=== PATIENT | female | born 1940 | race Caucasian/White ===

== ENCOUNTER 2016-12-26 09:54 | Outpatient (CLI) | payer MEDICARE ==
[2016-12-26 10:18] LABS: #Basophils 0.1 thou/uL (0.0-0.2); #Eosinphils 0.3 thou/uL (0.0-0.7); #Lymphocytes 2.5 thou/uL (1.20-3.40); #Monocytes 0.8 thou/uL (0.11-0.59); %Basophils 1.5 % (0.0-1.0); %Eosinophils 3.3 % (0.0-10.0); %Lymphocytes 25.7 % (21.0-51.0); %Monocytes 7.8 % (0.0-10.0); %Neutrophils 61.6 % (42.0-75.0); Hemoglobin 12.1 g/dL (12.0-16.0); Mean Corpuscular HGB CONC 32.5 g/dL (32.0-36.0); Mean Corpuscular Hemoglobin 30.4 pg (27.0-31.0); Mean Corpuscular Volume 93.5 fl (81.0-99.0); Mean Platelet Volume 8.8 fL (7.4-10.4); Platelet Count 266 thou/uL (130-400); RBC Distribution Width 12.3 % (11.5-14.5); Red Blood Cell (RBC) Count 3.99 mill/uL (4.20-5.40); White Blood Cell (WBC) Count 9.7 thou/uL (4.8-10.8)
[2016-12-26 10:32] LABS: Hemoglobin A1c 8.7 % (4.0-6.0)
[2016-12-26 11:03] LABS: ALT (SGPT) 19 U/L (0-55); AST (SGOT) 22 U/L (5-34); Albumin 3.4 g/dL (3.4-4.8); Alkaline Phosphatase 102 U/L (40-150); Anion Gap 16 mmol/L (10-20); BUN (Urea Nitrogen) 28 mg/dL (9.8-20.1); Bilirubin, Total 0.3 mg/dL (0.2-1.2); Calc. Creatinine Clearance 0 mL/min (70-130); Calcium 8.9 mg/dL (7.8-10.44); Carbon Dioxide 28 mmol/L (23-31); Cardiac Risk 2.7 (Less than 4.5); Chloride 106 mmol/L (98-107); Cholesterol 145 mg/dL (< 200 Desired); Estimated GFR-MDRD 27; Globulin 2.5 g/dL (2.4-3.5); Glucose 99 mg/dL (83-110); HDL Cholesterol 53 mg/dL (>60 Neg Risk); LDL Cholesterol, Calculated 77 mg/dL; Potassium 4.6 mmol/L (3.5-5.1); Protein, Total 5.9 g/dL (5.8-8.1); Sodium 145 mmol/L (136-145); Triglycerides 74 mg/dL (Less than 150)
[2016-12-26 17:30] LABS: Iron 86 ug/dL (50-170)
== END 2016-12-26 09:55 ==
LOC: MADLABBHPM 09:54
PROVIDERS: ATTEND Family Medicine
DX: D64.9 Anemia, unspecified (principal); E08.40 Diabetes mellitus due to underlying condition with diabetic neuropathy, unspecified
CPT/HCPCS: 36415; 80053; 80061; 82728; 83036; 83540; 85025

== ENCOUNTER 2017-03-01 08:37 | Outpatient (CLI) | payer MEDICARE ==
[2017-03-01 10:59] LABS: #Basophils 0.1 thou/uL (0.0-0.2); #Eosinphils 0.3 thou/uL (0.0-0.7); #Lymphocytes 2.4 thou/uL (1.20-3.40); #Monocytes 0.9 thou/uL (0.11-0.59); #Neutrophils 5.9 thou/uL (1.40-6.50); %Eosinophils 3.2 % (0.0-10.0); %Lymphocytes 25.5 % (21.0-51.0); %Monocytes 9.1 % (0.0-10.0); %Neutrophils 61.2 % (42.0-75.0); Hemoglobin 12.4 g/dL (12.0-16.0); Mean Corpuscular HGB CONC 33.1 g/dL (32.0-36.0); Mean Corpuscular Hemoglobin 31.2 pg (27.0-31.0); Mean Corpuscular Volume 94.3 fl (81.0-99.0); Mean Platelet Volume 8.5 fL (7.4-10.4); Platelet Count 262 thou/uL (130-400); RBC Distribution Width 12.7 % (11.5-14.5); Red Blood Cell (RBC) Count 3.97 mill/uL (4.20-5.40); White Blood Cell (WBC) Count 9.6 thou/uL (4.8-10.8)
[2017-03-01 11:16] LABS: Anion Gap 13 mmol/L (10-20); BUN (Urea Nitrogen) 26 mg/dL (9.8-20.1); Calc. Creatinine Clearance 0 mL/min (70-130); Calcium 9.1 mg/dL (7.8-10.44); Carbon Dioxide 29 mmol/L (23-31); Chloride 107 mmol/L (98-107); Estimated GFR-MDRD 33; Glucose 68 mg/dL (83-110); Phosphorus 4.1 mg/dL (2.3-4.7); Potassium 4.4 mmol/L (3.5-5.1); Sodium 145 mmol/L (136-145)
== END 2017-03-01 08:38 | disposition home or self-care (01) ==
LOC: MADLAB 08:37
PROVIDERS: ATTEND Internal Medicine Nephrology
DX: N18.3 Chronic kidney disease, stage 3 (moderate) (principal)
CPT/HCPCS: 36415; 80048; 83970; 84100; 85025

== ENCOUNTER 2017-03-14 09:11 | Outpatient (CLI) | payer MEDICARE ==
[2017-03-14 09:38] LABS: Hemoglobin A1c 8.5 % (4.0-6.0)
== END 2017-03-14 09:12 | disposition home or self-care (01) ==
LOC: MADLABBHPM 09:11
PROVIDERS: ATTEND Family Medicine
DX: E08.40 Diabetes mellitus due to underlying condition with diabetic neuropathy, unspecified (principal)
CPT/HCPCS: 36415; 83036

== ENCOUNTER 2017-06-19 08:42 | Outpatient (CLI) | payer MEDICARE ==
[2017-06-19 09:28] LABS: Hemoglobin A1c 5.8 % (4.0-6.0)
[2017-06-19 09:50] LABS: ALT (SGPT) 17 U/L (8-55); AST (SGOT) 21 U/L (5-34); Albumin 3.4 g/dL (3.4-4.8); Alkaline Phosphatase 99 U/L (40-150); Anion Gap 12 mmol/L (10-20); BUN (Urea Nitrogen) 27 mg/dL (9.8-20.1); Bilirubin, Total 0.3 mg/dL (0.2-1.2); Calc. Creatinine Clearance 0 mL/min (70-130); Calcium 9.3 mg/dL (7.8-10.44); Carbon Dioxide 30 mmol/L (23-31); Cardiac Risk 2.9 (Less than 4.5); Chloride 105 mmol/L (98-107); Cholesterol 156 mg/dl (< 200 Desired); Estimated GFR-MDRD 23; Globulin 3.2 g/dL (2.4-3.5); HDL Cholesterol 53 mg/dL (>60 Neg Risk); LDL Cholesterol, Calculated 87 mg/dL; Potassium 5.6 mmol/L (3.5-5.1); Protein, Total 6.6 g/dL (6.0-8.3); Sodium 141 mmol/L (136-145); Triglycerides 82 mg/dL (Less than 150)
[2017-06-19 10:38] LABS: Glucose 46 mg/dL (83-110)
== END 2017-06-19 08:43 ==
LOC: MADLABBHPM 08:42
PROVIDERS: ATTEND Family Medicine
DX: E78.5 Hyperlipidemia, unspecified (principal); E08.40 Diabetes mellitus due to underlying condition with diabetic neuropathy, unspecified
CPT/HCPCS: 36415; 80053; 80061; 83036; 84443

== ENCOUNTER 2017-06-21 09:01 | Outpatient (CLI) | payer MEDICARE ==
[2017-06-21 10:19] LABS: Anion Gap 13 mmol/L (10-20); BUN (Urea Nitrogen) 33 mg/dL (9.8-20.1); Calc. Creatinine Clearance 0 mL/min (70-130); Calcium 9.3 mg/dL (7.8-10.44); Carbon Dioxide 29 mmol/L (23-31); Chloride 106 mmol/L (98-107); Estimated GFR-MDRD 23; Potassium 5.2 mmol/L (3.5-5.1); Sodium 143 mmol/L (136-145)
[2017-06-21 11:23] LABS: Glucose 46 mg/dL (83-110)
== END 2017-06-21 09:02 | disposition home or self-care (01) ==
LOC: MADLABBHPM 09:01
PROVIDERS: ATTEND Family Medicine
DX: E08.40 Diabetes mellitus due to underlying condition with diabetic neuropathy, unspecified (principal)
CPT/HCPCS: 36415; 80048; 80053; 80061; 83036; 84443

== ENCOUNTER 2017-06-24 08:52 | Outpatient (CLI) | payer MEDICARE ==
[2017-06-24 11:07] LABS: Anion Gap 13 mmol/L (10-20); BUN (Urea Nitrogen) 33 mg/dL (9.8-20.1); Calc. Creatinine Clearance 0 mL/min (70-130); Calcium 9.3 mg/dL (7.8-10.44); Carbon Dioxide 29 mmol/L (23-31); Chloride 103 mmol/L (98-107); Estimated GFR-MDRD 22; Glucose 198 mg/dL (83-110); Potassium 4.9 mmol/L (3.5-5.1); Sodium 140 mmol/L (136-145)
== END 2017-06-24 08:53 ==
LOC: MADLABBHPM 08:52
PROVIDERS: ATTEND Family Medicine
DX: E78.5 Hyperlipidemia, unspecified (principal)
CPT/HCPCS: 36415; 80048

== ENCOUNTER 2017-06-28 08:53 | Outpatient (CLI) | payer MEDICARE ==
[2017-06-28 09:49] LABS: Anion Gap 13 mmol/L (10-20); BUN (Urea Nitrogen) 30 mg/dL (9.8-20.1); Calc. Creatinine Clearance 0 mL/min (70-130); Calcium 9.5 mg/dL (7.8-10.44); Carbon Dioxide 30 mmol/L (23-31); Chloride 103 mmol/L (98-107); Estimated GFR-MDRD 26; Glucose 209 mg/dL (83-110); Potassium 4.9 mmol/L (3.5-5.1); Sodium 141 mmol/L (136-145)
== END 2017-06-28 08:54 | disposition home or self-care (01) ==
LOC: MADLABBHPM 08:53
PROVIDERS: ATTEND Family Medicine
DX: N18.3 Chronic kidney disease, stage 3 (moderate) (principal); E08.40 Diabetes mellitus due to underlying condition with diabetic neuropathy, unspecified; E55.9 Vitamin D deficiency, unspecified
CPT/HCPCS: 36415; 80048; 82306; 83970

== ENCOUNTER 2018-01-13 12:03 | Outpatient (CLI) | payer MEDICARE ==
[2018-01-13 13:50] LABS: ALT (SGPT) 12 U/L (8-55); AST (SGOT) 13 U/L (5-34); Albumin 3.4 g/dL (3.4-4.8); Alkaline Phosphatase 84 U/L (40-150); Anion Gap 15 mmol/L (10-20); BUN (Urea Nitrogen) 26 mg/dL (9.8-20.1); Bilirubin, Total 0.3 mg/dL (0.2-1.2); Calc. Creatinine Clearance 0 mL/min (70-130); Calcium 8.9 mg/dL (7.8-10.44); Carbon Dioxide 28 mmol/L (23-31); Chloride 106 mmol/L (98-107); Estimated GFR-MDRD 38; Globulin 2.6 g/dL (2.4-3.5); Glucose 77 mg/dL (83-110); Potassium 4.4 mmol/L (3.5-5.1); Sodium 145 mmol/L (136-145)
== END 2018-01-13 12:04 | disposition home or self-care (01) ==
LOC: MADLABBHPM 12:04
PROVIDERS: ATTEND Family Medicine
DX: E08.40 Diabetes mellitus due to underlying condition with diabetic neuropathy, unspecified (principal)
CPT/HCPCS: 36415; 80053; 83036

== ENCOUNTER 2018-03-31 10:30 | Outpatient (CLI) | payer MEDICARE ==
[2018-03-31 11:41] LABS: Anion Gap 15 mmol/L (10-20); BUN (Urea Nitrogen) 36 mg/dL (9.8-20.1); Calc. Creatinine Clearance 0 mL/min (70-130); Calcium 9.5 mg/dL (7.8-10.44); Carbon Dioxide 28 mmol/L (23-31); Chloride 104 mmol/L (98-107); Estimated GFR-MDRD 36; Glucose 221 mg/dL (83-110); Potassium 4.5 mmol/L (3.5-5.1); Sodium 142 mmol/L (136-145)
== END 2018-03-31 10:31 | disposition home or self-care (01) ==
LOC: MADLABBHPM 10:30
PROVIDERS: ATTEND Internal Medicine Nephrology
DX: N18.3 Chronic kidney disease, stage 3 (moderate) (principal)
CPT/HCPCS: 36415; 80048

== ENCOUNTER 2018-07-03 08:25 | Outpatient (CLI) | payer MEDICARE ==
[2018-07-03 09:55] LABS: Anion Gap 12 mmol/L (10-20); BUN (Urea Nitrogen) 22 mg/dL (9.8-20.1); Calc. Creatinine Clearance 0 mL/min (70-130); Calcium 8.6 mg/dL (7.8-10.44); Carbon Dioxide 28 mmol/L (23-31); Estimated GFR-MDRD 28; Glucose 154 mg/dL (83-110); Potassium 4.3 mmol/L (3.5-5.1); Sodium 140 mmol/L (136-145)
[2018-07-03 10:36] LABS: Chloride 104 mmol/L (98-107)
== END 2018-07-03 08:26 | disposition home or self-care (01) ==
LOC: MADLABBHPM 08:25
PROVIDERS: ATTEND Family Medicine
DX: R60.0 Localized edema (principal)
CPT/HCPCS: 36415; 80048

== ENCOUNTER 2018-07-13 17:12 | Emergency (ER) | payer MEDICARE ==
[~2018-07-13 17:12] MED LIST: Sodium Chloride 0.9% 1,000 ML BAG ONE; Sodium Chloride 0.9% 100 ML BAG ONE
[2018-07-13] MEDS ORDERED: Acetaminophen 500 MG TAB ONE (17:30)
[2018-07-13] MEDS ORDERED: Piperacillin/Tazobactam 4.5 GM VIAL ONE (17:30)
[2018-07-13] MEDS ORDERED: Vancomycin HCl 500 MG VIAL ONE ×2 (17:30→19:17)
[2018-07-13 17:38] LABS: #Basophils 0.2 thou/uL (0.0-0.2); #Lymphocytes 1.1 thou/uL (1.20-3.40); #Neutrophils 14.7 thou/uL (1.40-6.50); %Eosinophils 0.1 % (0.0-10.0); %Lymphocytes 6.3 % (21.0-51.0); %Monocytes 6.1 % (0.0-10.0); %Neutrophils 86.5 % (42.0-75.0); Hemoglobin 11.5 g/dL (12.0-16.0); Mean Corpuscular HGB CONC 31.8 g/dL (32.0-36.0); Mean Corpuscular Hemoglobin 28.8 pg (27.0-31.0); Mean Corpuscular Volume 90.8 fL (78.0-98.0); Mean Platelet Volume 7.1 fL (7.4-10.4); Platelet Count 346 thou/uL (130-400); RBC Distribution Width 12.2 % (11.5-14.5)
[2018-07-13 17:41] LABS: INR-International Normal Ratio 1.2; PTT 36.2 SEC (22.9-36.1); Prothrombin Time 14.8 SEC (12.0-14.7)
[2018-07-13 17:52] LABS: ALT (SGPT) 10 U/L (8-55); AST (SGOT) 11 U/L (5-34); Albumin 3.3 g/dL (3.4-4.8); Alkaline Phosphatase 86 U/L (40-150); Anion Gap 14 mmol/L (10-20); BUN (Urea Nitrogen) 20 mg/dL (9.8-20.1); Bilirubin, Total 0.4 mg/dL (0.2-1.2); Calc. Creatinine Clearance 0 mL/min (70-130); Calcium 8.8 mg/dL (7.8-10.44); Carbon Dioxide 26 mmol/L (23-31); Chloride 103 mmol/L (98-107); Estimated GFR-MDRD 32; Globulin 3.5 g/dL (2.4-3.5); Glucose 95 mg/dL (83-110); Potassium 4.6 mmol/L (3.5-5.1); Protein, Total 6.8 g/dL (6.0-8.3); Sodium 138 mmol/L (136-145)
[2018-07-13 18:00] LABS: Bilirubin Negative (Negative); Blood, Urine Small (Negative); Clarity Hazy (Clear); Glucose, Urine (Dipstick) Negative (Negative); Leukocyte Negative (Negative); Nitrite Negative (Negative); Protein, Urine (Dipstick) > or equal to 300 mg/dL (Neg-Trace); Urobilinogen 0.2 mg/dL (0.2-1.0); pH, Urine 7.5 (5.0-9.0)
[2018-07-13 18:07] LABS: Bacteria/HPF Rare-Few HPF (None Seen); Squamous Epithelial 0-3 HPF (0-3); WBC/HPF 0-3 HPF (0-3)
[2018-07-13] MEDS ORDERED: Azithromycin 500 MG VIAL ONE (18:09)
[2018-07-13] MEDS ORDERED: Furosemide 40 MG/4 ML VIAL ONE (18:17)
--- NOTE | 2018-07-13 18:29 | RAD ---
FRONTAL RADIOGRAPH CHEST: Date: 07-13-18 History: Dyspnea. Comparison: 11-11-15 FINDINGS: There is hazy increased density in the lateral aspect of the left lung base with blunting of the left costophrenic angle. Right lung appears clear. No pneumothorax. Heart and mediastinal contours are st able. IMPRESSION: Hazy density in the lateral aspect of the left lung base which may signify infectious pneumonitis in the proper clinical setting. Recommend follow up PA and lateral imaging of the chest following treatm ent to document resolution. Code T POS: [facility]
== END 2018-07-13 19:22 | disposition short-term general hospital (02) ==
LOC: MADERS 17:12
DX: A41.9 Sepsis, unspecified organism (principal); J18.9 Pneumonia, unspecified organism; E87.70 Fluid overload, unspecified; R09.02 Hypoxemia; E11.9 Type 2 diabetes mellitus without complications; K21.9 Gastro-esophageal reflux disease without esophagitis; E78.5 Hyperlipidemia, unspecified; I10 Essential (primary) hypertension; Z79.899 Other long term (current) drug therapy; Z79.82 Long term (current) use of aspirin; Z79.4 Long term (current) use of insulin
CPT/HCPCS: 51702; 71045; 80053; 81003; 81015; 83605; 83735; 83880; 85025; 85610; 85730; 87040; 87086; 93005; 94760; 96365; 96367; 96375; J0456; J1940; J2543; J3370; J7050

== ENCOUNTER 2018-07-28 12:10 | Emergency (ER) | payer MEDICARE ==
[2018-07-28] MEDS ORDERED: D5 1/2 NS w/20 mEq KCL 1,000 ML ONE (12:38)
[2018-07-28] MEDS ORDERED: Albuterol Sulfate 2.5 mg/0.5 ml Neb ONE (12:40)
[2018-07-28 12:58] LABS: #Lymphocytes 1.1 thou/uL (1.20-3.40); #Monocytes 1.1 thou/uL (0.11-0.59); #Neutrophils 15.5 thou/uL (1.40-6.50); %Basophils 0.1 % (0.0-1.0); %Eosinophils 0.1 % (0.0-10.0); %Lymphocytes 5.9 % (21.0-51.0); %Monocytes 6.5 % (0.0-10.0); %Neutrophils 87.4 % (42.0-75.0); Hemoglobin 9.9 g/dL (12.0-16.0); Mean Corpuscular Hemoglobin 28.8 pg (27.0-31.0); Platelet Count 232 thou/uL (130-400); RBC Distribution Width 12.4 % (11.5-14.5); Red Blood Cell (RBC) Count 3.44 mill/uL (4.20-5.40); White Blood Cell (WBC) Count 17.7 thou/uL (4.8-10.8)
[2018-07-28 13:12] LABS: ALT (SGPT) 15 U/L (8-55); AST (SGOT) 9 U/L (5-34); Albumin 3.2 g/dL (3.4-4.8); Alkaline Phosphatase 65 U/L (40-150); Anion Gap 13 mmol/L (10-20); BUN (Urea Nitrogen) 51 mg/dL (9.8-20.1); Bilirubin, Total 0.3 mg/dL (0.2-1.2); Calc. Creatinine Clearance 0 mL/min (70-130); Calcium 8.7 mg/dL (7.8-10.44); Carbon Dioxide 30 mmol/L (23-31); Chloride 98 mmol/L (98-107); Estimated GFR-MDRD 34; Globulin 2.5 g/dL (2.4-3.5); Glucose 357 mg/dL (83-110); Potassium 5.1 mmol/L (3.5-5.1); Protein, Total 5.7 g/dL (6.0-8.3); Sodium 136 mmol/L (136-145)
[2018-07-28] MEDS ORDERED: Nitroglycerin 0.4 MG TAB (25 Tab Bottle) ONE (13:40)
[2018-07-28] MEDS ORDERED: Nitroglycerin 2% Ointment 1 INCH/1 GM Packet ONE (13:40)
[2018-07-28] MEDS ORDERED: Furosemide 20 MG/2 ML VIAL ONE (13:43)
[2018-07-28] MEDS ORDERED: Furosemide 40 MG/4 ML VIAL ONE (13:43)
--- NOTE | 2018-07-28 13:59 | RAD ---
PORTABLE CHEST: History: Small bowel obstruction. Shortness of breath. Dyspnea. History of hypertension. Comparison: 07-20-18 FINDINGS: There is cardiomegaly and mild vascular congestion. Evidence of small bilateral effusions and bibasil ar atelectasis. Similar findings were present on the prior exam. IMPRESSION: Cardiomegaly and mild vascular congestion and small effusions. POS: [facility]
== END 2018-07-28 15:03 | disposition short-term general hospital (02) ==
LOC: MADERS 12:10
DX: I11.0 Hypertensive heart disease with heart failure (principal); I50.9 Heart failure, unspecified; K21.9 Gastro-esophageal reflux disease without esophagitis; E78.5 Hyperlipidemia, unspecified; E11.40 Type 2 diabetes mellitus with diabetic neuropathy, unspecified; Z79.899 Other long term (current) drug therapy; Z79.4 Long term (current) use of insulin
CPT/HCPCS: 36416; 71045; 80053; 83880; 84484; 85025; 93005; 96374; 36415-59; J1940; J7611; J7620

== ENCOUNTER 2018-08-19 17:19 | Inpatient (IN) | payer MEDICARE ==
[2018-08-19] MEDS ORDERED: Ondansetron ODT 4 MG TAB PO PRN (18:54)
[2018-08-19] MEDS ORDERED: Ventolin HFA Inhaler 60 PUFF INHALER INH PRN (18:54)
[2018-08-19] MEDS ORDERED: Acetaminophen 325 MG TAB PO PRN (18:54)
[2018-08-19] MEDS ORDERED: Dextrose 50% Abboject 50 ML SYRINGE IVP PRN (20:36)
[2018-08-19] MEDS ORDERED: Dextrose 5% in Water 1,000 ML IV PRN (20:36)
[2018-08-19] MEDS: Carvedilol 12.5 MG TAB PO SCH (20:56)
[2018-08-19] MEDS: Gabapentin 300 MG CAP PO SCH (20:56)
[2018-08-19] MEDS: Senokot S 8.6-50 MG TAB PO SCH (20:57)
[2018-08-19] MEDS: Simvastatin 5 MG TAB PO SCH (20:57)
[2018-08-19] MEDS: Latanoprost 0.005% Ophth Soln 2.5 ml Bottle L EYE SCH (20:59)
[2018-08-19] MEDS ORDERED: Non-Formulary Item 1 EACH (Travoprost [Travatan Z] 1 DROP) L EYE SCH (21:00)
[2018-08-19] MEDS: DorzolamidE/Timolol 2%/0.5% Ophth Soln 10 ml Bottle L EYE SCH ×2 (21:00→21:02)
[2018-08-19] MEDS: Lantus 1000 UNITS/10 ML VIAL SC SCH (21:01)
--- NOTE | 2018-08-20 08:08 | HP ---
DATE OF ADMISSION: 08/19/2018 ATTENDING: Dr. Ramon. REASON FOR ADMISSION: Skilled rehabilitation in [facility]. HISTORY OF PRESENT ILLNESS AND HOSPITAL COURSE: Ms. Hand is a very pleasant 77 -year-old female with multiple chronic medical conditions including CHF, COPD, diabetes type 2, chronic kidney disease stage 3, chronic normocytic normochromic anemia, obesity. The patient was recently admitted 3 times in a row within the past 406 weeks at [facility] secondary to dyspnea. Upon her last admission from the hospital in 07/2018, the patient was placed on continuous home O2 therapy secondary to persistent hypoxia. She was sent to [facility] at that time after the hospitalization and was admitted on 08/02/2018 for deconditioning and general weakness. During that time, the patient had progressive worsening dyspnea both at rest and dyspnea on exertion. She also had significant weight gain of 10 pounds over a period of 7 days. She continues to have volume retention and difficulty breathing, thus she was transferred back to [facility] on 2017 and was subsequently admitted for CHF, COPD, and bilateral pleural effusion. At that time, the patient was suspected for pneumonia and was treated with Rocephin and azithromycin for which she completed the antibiotic therapy while in the hospital. Her urinalysis at that time also was suggestive of UTI, thus treated the same. Her cultures per report remain negative. During this recent hospitalization, the patient remains to have progressive lower extremity edema, dyspnea both at rest and exertion and progressive weight gain. The patient's main problem per consult note with the specialist was diastolic heart failure exacerbation and because of that, she had an acute hypoxic respiratory failure requiring oxygen to maintain saturation. During this admission, she was treated with IV Lasix initially 40, but was not working , thus wharf tally clerk increased to 80 mg IV Lasix. They also added Zaroxolyn With that patient made significant diuretic respond. She significantly came down from her admission weight from 195 to 175 pounds. The hospitalist also consulted Dr. Ng during this hospitalization for worsening renal function. At one point, all her diuretics were withheld by dehydrogenation operator head and her renal function markedly improved. Due to recurrence of the patient's edema, the patient was put back on Lasix 40 p.o. with Zaroxolyn available for p.r.n. use only. Overall, pulmonary vascular congestion is stable. On 08/19/18, the patient was deemed stable to be discharged, but remains generally weak and severely deconditioned requiring patient as well as per family's request to undergo Skilled rehabilitation in [facility] before going back to the home environment. When evaluated today, the patient reports that she is doing a lot better. She feels much stronger. She started walking. She showed me her legs that are so slim at this point. She states that she still having some problem with abdominal obesity, otherwise she reports that she lost almost 30 pounds over these periods of frequent hospitalizations. PAST MEDICAL HISTORY: 1. CHF diastolic with latest EF of 50%-55%. 2. Diabetes type 2, insulin requiring. 3. Peripheral neuropathy/neuropathic pain followed by Dr. Hester. 4. Hypertension. 5. Hyperlipidemia. 6. Chronic left foot ulcers with amputations. 7. Dyslipidemia. 8. Left adrenal mass. 9. GERD. 10. History of cholelithiasis. 11. Glaucoma. PAST SURGICAL HISTORY: Bilateral tubal ligation, , cataract surgery, left great toe amputation in 2014. FAMILY HISTORY: Noncontributory. ALLERGIES: CODEINE. SOCIAL HISTORY: Patient is . She has children and she lives in [place] by herself, but her son lives across from her. She quit smoking in . She does not use alcohol. She denies any illicit drug use. She was totally independent with ADLs prior to admission. MEDICATIONS: 1. Aspirin 81 mg p.o. at bedtime. 2. Dorzolamide/Timolol Maleate ophthalmic drops each eye b.i.d. 3. Travatan Z one drop left eye daily. 4. DuoNeb q.6 hourly. 5. Lantus 15 units subcu b.i.d. 6. Tylenol 650 mg q.6 hours p.r.n. 7. Proventil HFA 2 puffs q.6 hourly p.r.n. 8. Amlodipine 10 mg p.o. daily. 9. Coreg 12.5 mg p.o. b.i.d. 10. Ferrous sulfate 325 mg p.o. daily. 11. Lasix 40 mg p.o. b.i.d. 12. Neurontin 300 mg p.o. b.i.d. 13. Xalatan eyedrops at bedtime. 14. Claritin 10 mg p.o. daily. 15. Zofran 4 mg p.o. q.6 hours p.r.n. 16. Protonix 40 mg p.o. at bedtime. 17. MiraLax 17 grams p.o. daily. 18. Potassium chloride 20 mEq p.o. daily. 19. Pravastatin 20 mg p.o. bedtime. 20. Senokot 1 tablet p.o. b.i.d. 21. Metolazone 5 mg p.o. daily p.r.n. for significant edema. REVIEW OF SYSTEMS: General: Denies fever, chills, loss of appetite. Reports general weakness and fatigue. HEENT: No acute visual changes or hearing changes. Reports allergy symptoms, which she is on medications. Respiratory: Complains of shortness of breath per HPI. No pain with breathing, no sputum production. No chronic cough. Cardiovascular: Denies chest pain, palpitations. Reports dyspnea on exertion has improved. No paroxysmal nocturnal dyspnea. Gastrointestinal: No nausea, vomiting, abdominal pain, diarrhea. Reports constipation. Genitourinary: No dysuria, hematuria, frequency, urgency or incontinence. Musculoskeletal: Denies joint pains, stiffness, and myalgia. Neurological: No new motor or sensory losses. No loss of incoordination. Reports neuropathic pain. Skin: No rashes, no lesions. Psychiatric: No depressive symptoms, anxiety, insomnia. PHYSICAL EXAMINATION: VITAL SIGNS: Blood pressure 117/56, temperature 98.3, pulse 63, respirations 18 , O2 sat 95%, weight 170 pounds and 7 ounces, height 5 feet 6 inches. GENERAL: The patient is awake, alert, oriented x3, not in distress, chronically fatigued looking. Comfortable in exam. HEENT: Normocephalic, atraumatic. PERRL. Intact EOM. Anicteric sclerae. Oral mucosa is moist. NECK: Supple. No LAD. Flat JVD. CHEST: Normal excursion, clear to auscultation bilaterally. CARDIAC: RRR. Normal S1 and S2. ABDOMEN: Obese, soft, normoactive bowel sounds, nondistended, nontender. Negative CVA tenderness bilaterally. EXTREMITIES: Trace nonpitting bipedal edema, no cyanosis. SKIN: Intact with some hyperpigmentation of the lower extremities bilaterally, a chronic finding. NEUROLOGIC: Nonfocal. DTRs 2+. Gait unsteady. PSYCHIATRIC: Appears calm, appropriate demeanor. Pleasant and cooperative. LABORATORY DATA AND X-RAY FINDINGS: Recent labs. WBC 9.2, hemoglobin 9.3, platelets 440. Sodium 141, potassium 3.5, BUN 40, creatinine 1.90, calcium 9.5. Urinalysis suggestive of UTI. Blood culture negative. Urine culture negative. Chest x-ray on admission showed pulmonary vascular congestion. Ultrasound of the lower extremity was negative for DVT. Abdomen of the x-ray showed nonspecific bowel gas patterns. Repeat chest x-ray showed improvement in infiltration. ASSESSMENT: 1. Deconditioning/general weakness. 2. Acute on chronic stage C, diastolic congestive heart failure exacerbation. 3. Acute respiratory failure with hypoxia due to problem #1. 4. Pneumonia, community acquired, treated while in the hospital. 5. Urinary tract infection, treated while in the hospital. 6. Diabetes type 2, insulin-requiring, stable. 7. Hypertension. 8. Dyslipidemia. 9. Chronic obstructive pulmonary disease. 10. Unsteady gait. 11. Neuropathic pain. PLAN: The patient is admitted to Med/Surg for skilled rehabilitation. PT, OT evaluate and treat. Continue all current medications per list. DIET: Low salt, low fat, 2000 AHA with fluid restrictions of 1500 mL per 24 hours. ACTIVITY: To be determined by the physical therapist. Gastrointestinal prophylaxis with PPI. Deep venous thrombosis prophylaxis with compression stockings. Further recommendations depending on the hospital course. Estimated length of stay 2-3 weeks. CODE STATUS: Patient reports FULL CODE. MTDD
[2018-08-20] MEDS: Loratadine 10 MG TAB PO SCH (09:26)
[2018-08-20] MEDS: Senokot S 8.6-50 MG TAB PO SCH ×2 (09:26→20:49)
[2018-08-20] MEDS: Amlodipine 5 MG TAB PO SCH (09:26)
[2018-08-20] MEDS: Furosemide 40 MG TAB PO SCH ×2 (09:26→14:25)
[2018-08-20] MEDS: Ferrous Sulfate 325 MG TAB PO SCH (09:26)
[2018-08-20] MEDS: Carvedilol 12.5 MG TAB PO SCH ×2 (09:26→20:52)
[2018-08-20] MEDS: Gabapentin 300 MG CAP PO SCH ×2 (09:27→20:52)
[2018-08-20] MEDS: DorzolamidE/Timolol 2%/0.5% Ophth Soln 10 ml Bottle L EYE SCH ×2 (09:27→14:25)
[2018-08-20] MEDS: Potassium Chloride 20 MEQ TAB PO SCH (09:27)
[2018-08-20] MEDS: Polyethylene Glycol 3350 17 GM Packet PO SCH (09:28)
[2018-08-20] MEDS: Lantus 1000 UNITS/10 ML VIAL SC SCH ×2 (09:35→20:51)
[2018-08-20] MEDS: HumaLOG 300 UNITS/3 ML VIAL SC PRN ×4 (09:41→20:47)
[2018-08-20] MEDS: Simvastatin 5 MG TAB PO SCH (20:48)
[2018-08-20] MEDS: Latanoprost 0.005% Ophth Soln 2.5 ml Bottle L EYE SCH (20:54)
[2018-08-21] MEDS: Furosemide 40 MG TAB PO SCH ×2 (08:37→13:45)
[2018-08-21] MEDS: Ferrous Sulfate 325 MG TAB PO SCH (08:37)
[2018-08-21] MEDS: Loratadine 10 MG TAB PO SCH (08:37)
[2018-08-21] MEDS: Gabapentin 300 MG CAP PO SCH ×2 (08:37→20:46)
[2018-08-21] MEDS: Potassium Chloride 20 MEQ TAB PO SCH (08:37)
[2018-08-21] MEDS: Amlodipine 5 MG TAB PO SCH (08:37)
[2018-08-21] MEDS: Carvedilol 12.5 MG TAB PO SCH ×2 (08:37→20:46)
[2018-08-21] MEDS: Polyethylene Glycol 3350 17 GM Packet PO SCH (08:38)
[2018-08-21] MEDS: Senokot S 8.6-50 MG TAB PO SCH ×2 (08:38→20:46)
[2018-08-21] MEDS: DorzolamidE/Timolol 2%/0.5% Ophth Soln 10 ml Bottle L EYE SCH ×2 (08:40→15:20)
[2018-08-21] MEDS: Lantus 1000 UNITS/10 ML VIAL SC SCH ×2 (08:43→20:47)
[2018-08-21] MEDS: HumaLOG 300 UNITS/3 ML VIAL SC PRN ×2 (11:39→16:58)
[2018-08-21] MEDS: Simvastatin 5 MG TAB PO SCH (20:46)
[2018-08-21] MEDS: Latanoprost 0.005% Ophth Soln 2.5 ml Bottle L EYE SCH (20:47)
[2018-08-22] MEDS: Potassium Chloride 20 MEQ TAB PO SCH (08:20)
[2018-08-22] MEDS: Ferrous Sulfate 325 MG TAB PO SCH (08:20)
[2018-08-22] MEDS: Gabapentin 300 MG CAP PO SCH ×2 (08:20→20:31)
[2018-08-22] MEDS: Loratadine 10 MG TAB PO SCH (08:21)
[2018-08-22] MEDS: Furosemide 40 MG TAB PO SCH ×2 (08:21→13:15)
[2018-08-22] MEDS: Amlodipine 5 MG TAB PO SCH (08:21)
[2018-08-22] MEDS: Carvedilol 12.5 MG TAB PO SCH ×2 (08:21→20:32)
[2018-08-22] MEDS: Lantus 1000 UNITS/10 ML VIAL SC SCH ×2 (08:22→20:33)
[2018-08-22] MEDS: Polyethylene Glycol 3350 17 GM Packet PO SCH (08:22)
[2018-08-22] MEDS: DorzolamidE/Timolol 2%/0.5% Ophth Soln 10 ml Bottle L EYE SCH ×2 (08:22→14:50)
[2018-08-22] MEDS: Senokot S 8.6-50 MG TAB PO SCH ×2 (08:22→20:36)
[2018-08-22] MEDS: HumaLOG 300 UNITS/3 ML VIAL SC PRN ×2 (12:10→17:34)
[2018-08-22] MEDS: Simvastatin 5 MG TAB PO SCH (20:30)
[2018-08-22] MEDS: Latanoprost 0.005% Ophth Soln 2.5 ml Bottle L EYE SCH (20:33)
[2018-08-23] MEDS: Gabapentin 300 MG CAP PO SCH ×2 (08:15→20:02)
[2018-08-23] MEDS: Polyethylene Glycol 3350 17 GM Packet PO SCH (08:15)
[2018-08-23] MEDS: Potassium Chloride 20 MEQ TAB PO SCH (08:15)
[2018-08-23] MEDS: Furosemide 40 MG TAB PO SCH ×2 (08:16→13:23)
[2018-08-23] MEDS: Loratadine 10 MG TAB PO SCH (08:16)
[2018-08-23] MEDS: Carvedilol 12.5 MG TAB PO SCH ×2 (08:16→20:02)
[2018-08-23] MEDS: Amlodipine 5 MG TAB PO SCH (08:16)
[2018-08-23] MEDS: Senokot S 8.6-50 MG TAB PO SCH ×2 (08:16→20:03)
[2018-08-23] MEDS: Ferrous Sulfate 325 MG TAB PO SCH (08:17)
[2018-08-23] MEDS: Lantus 1000 UNITS/10 ML VIAL SC SCH ×2 (08:17→20:09)
[2018-08-23] MEDS: DorzolamidE/Timolol 2%/0.5% Ophth Soln 10 ml Bottle L EYE SCH ×2 (08:17→15:41)
[2018-08-23] MEDS: HumaLOG 300 UNITS/3 ML VIAL SC PRN ×3 (12:40→20:08)
[2018-08-23] MEDS: Latanoprost 0.005% Ophth Soln 2.5 ml Bottle L EYE SCH (20:03)
[2018-08-23] MEDS: Simvastatin 5 MG TAB PO SCH (20:04)
[2018-08-24] MEDS: Gabapentin 300 MG CAP PO SCH ×2 (08:48→20:47)
[2018-08-24] MEDS: DorzolamidE/Timolol 2%/0.5% Ophth Soln 10 ml Bottle L EYE SCH ×2 (08:48→14:48)
[2018-08-24] MEDS: Amlodipine 5 MG TAB PO SCH (08:48)
[2018-08-24] MEDS: Furosemide 40 MG TAB PO SCH ×2 (08:48→14:48)
[2018-08-24] MEDS: Senokot S 8.6-50 MG TAB PO SCH ×2 (08:48→20:48)
[2018-08-24] MEDS: Carvedilol 12.5 MG TAB PO SCH ×2 (08:48→20:46)
[2018-08-24] MEDS: Loratadine 10 MG TAB PO SCH (08:48)
[2018-08-24] MEDS: Potassium Chloride 20 MEQ TAB PO SCH (08:48)
[2018-08-24] MEDS: Ferrous Sulfate 325 MG TAB PO SCH (08:49)
[2018-08-24] MEDS: Polyethylene Glycol 3350 17 GM Packet PO SCH (08:49)
[2018-08-24] MEDS: Lantus 1000 UNITS/10 ML VIAL SC SCH ×2 (08:49→20:49)
[2018-08-24] MEDS: HumaLOG 300 UNITS/3 ML VIAL SC PRN ×2 (18:19→20:50)
[2018-08-24] MEDS: Simvastatin 5 MG TAB PO SCH (20:48)
[2018-08-24] MEDS: Latanoprost 0.005% Ophth Soln 2.5 ml Bottle L EYE SCH (20:51)
[2018-08-25] MEDS: Senokot S 8.6-50 MG TAB PO SCH ×2 (08:32→20:38)
[2018-08-25] MEDS: Carvedilol 12.5 MG TAB PO SCH ×2 (08:32→20:38)
[2018-08-25] MEDS: Potassium Chloride 20 MEQ TAB PO SCH (08:33)
[2018-08-25] MEDS: Furosemide 40 MG TAB PO SCH ×2 (08:33→14:40)
[2018-08-25] MEDS: Gabapentin 300 MG CAP PO SCH ×2 (08:33→20:40)
[2018-08-25] MEDS: Amlodipine 5 MG TAB PO SCH (08:33)
[2018-08-25] MEDS: Ferrous Sulfate 325 MG TAB PO SCH (08:34)
[2018-08-25] MEDS: Loratadine 10 MG TAB PO SCH (08:34)
[2018-08-25] MEDS: Polyethylene Glycol 3350 17 GM Packet PO SCH (08:34)
[2018-08-25] MEDS: Lantus 1000 UNITS/10 ML VIAL SC SCH ×2 (08:35→20:27)
[2018-08-25] MEDS: DorzolamidE/Timolol 2%/0.5% Ophth Soln 10 ml Bottle L EYE SCH ×2 (08:35→14:40)
[2018-08-25] MEDS: HumaLOG 300 UNITS/3 ML VIAL SC PRN ×3 (11:54→20:32)
[2018-08-25] MEDS: Latanoprost 0.005% Ophth Soln 2.5 ml Bottle L EYE SCH (20:25)
[2018-08-25] MEDS: Simvastatin 5 MG TAB PO SCH (20:37)
[2018-08-26] MEDS: Potassium Chloride 20 MEQ TAB PO SCH (08:20)
[2018-08-26] MEDS: Ferrous Sulfate 325 MG TAB PO SCH (08:20)
[2018-08-26] MEDS: DorzolamidE/Timolol 2%/0.5% Ophth Soln 10 ml Bottle L EYE SCH ×2 (08:21→14:36)
[2018-08-26] MEDS: Amlodipine 5 MG TAB PO SCH (08:21)
[2018-08-26] MEDS: Furosemide 40 MG TAB PO SCH ×2 (08:21→14:36)
[2018-08-26] MEDS: Carvedilol 12.5 MG TAB PO SCH ×2 (08:21→21:01)
[2018-08-26] MEDS: Loratadine 10 MG TAB PO SCH (08:22)
[2018-08-26] MEDS: Gabapentin 300 MG CAP PO SCH ×2 (08:22→21:01)
[2018-08-26] MEDS: Polyethylene Glycol 3350 17 GM Packet PO SCH (08:22)
[2018-08-26] MEDS: Senokot S 8.6-50 MG TAB PO SCH ×2 (08:22→21:01)
[2018-08-26] MEDS: Lantus 1000 UNITS/10 ML VIAL SC SCH ×2 (08:24→21:04)
[2018-08-26] MEDS: HumaLOG 300 UNITS/3 ML VIAL SC PRN (11:40)
[2018-08-26] MEDS: Simvastatin 5 MG TAB PO SCH (21:01)
[2018-08-26] MEDS: Latanoprost 0.005% Ophth Soln 2.5 ml Bottle L EYE SCH (21:03)
[2018-08-27] MEDS: Amlodipine 5 MG TAB PO SCH (08:41)
[2018-08-27] MEDS: DorzolamidE/Timolol 2%/0.5% Ophth Soln 10 ml Bottle L EYE SCH ×2 (08:41→14:04)
[2018-08-27] MEDS: Potassium Chloride 20 MEQ TAB PO SCH (08:41)
[2018-08-27] MEDS: Carvedilol 12.5 MG TAB PO SCH ×2 (08:41→20:09)
[2018-08-27] MEDS: Ferrous Sulfate 325 MG TAB PO SCH (08:41)
[2018-08-27] MEDS: Furosemide 40 MG TAB PO SCH ×2 (08:42→14:04)
[2018-08-27] MEDS: Gabapentin 300 MG CAP PO SCH ×2 (08:42→20:09)
[2018-08-27] MEDS: Senokot S 8.6-50 MG TAB PO SCH ×2 (08:42→20:08)
[2018-08-27] MEDS: Lantus 1000 UNITS/10 ML VIAL SC SCH ×2 (08:42→20:13)
[2018-08-27] MEDS: Loratadine 10 MG TAB PO SCH (08:42)
[2018-08-27] MEDS: Polyethylene Glycol 3350 17 GM Packet PO SCH (08:43)
[2018-08-27] MEDS: HumaLOG 300 UNITS/3 ML VIAL SC PRN ×3 (11:29→20:15)
[2018-08-27] MEDS: Simvastatin 5 MG TAB PO SCH (20:09)
[2018-08-27] MEDS: Latanoprost 0.005% Ophth Soln 2.5 ml Bottle L EYE SCH (20:14)
[2018-08-28] MEDS: Ferrous Sulfate 325 MG TAB PO SCH (08:15)
[2018-08-28] MEDS: Amlodipine 5 MG TAB PO SCH (08:15)
[2018-08-28] MEDS: Potassium Chloride 20 MEQ TAB PO SCH (08:15)
[2018-08-28] MEDS: Senokot S 8.6-50 MG TAB PO SCH ×2 (08:16→20:59)
[2018-08-28] MEDS: Loratadine 10 MG TAB PO SCH (08:16)
[2018-08-28] MEDS: Lantus 1000 UNITS/10 ML VIAL SC SCH ×2 (08:16→20:56)
[2018-08-28] MEDS: Carvedilol 12.5 MG TAB PO SCH ×2 (08:16→20:53)
[2018-08-28] MEDS: DorzolamidE/Timolol 2%/0.5% Ophth Soln 10 ml Bottle L EYE SCH ×2 (08:16→15:15)
[2018-08-28] MEDS: Furosemide 40 MG TAB PO SCH ×2 (08:16→13:17)
[2018-08-28] MEDS: Gabapentin 300 MG CAP PO SCH ×2 (08:16→20:55)
[2018-08-28] MEDS: Polyethylene Glycol 3350 17 GM Packet PO SCH (08:17)
[2018-08-28] MEDS: HumaLOG 300 UNITS/3 ML VIAL SC PRN ×2 (12:16→17:06)
[2018-08-28] MEDS: Simvastatin 5 MG TAB PO SCH (20:53)
[2018-08-28] MEDS: Latanoprost 0.005% Ophth Soln 2.5 ml Bottle L EYE SCH (20:58)
[2018-08-29] MEDS: Potassium Chloride 20 MEQ TAB PO SCH (08:32)
[2018-08-29] MEDS: Ferrous Sulfate 325 MG TAB PO SCH (08:32)
[2018-08-29] MEDS: Amlodipine 5 MG TAB PO SCH (08:32)
[2018-08-29] MEDS: Carvedilol 12.5 MG TAB PO SCH ×2 (08:33→20:22)
[2018-08-29] MEDS: Furosemide 40 MG TAB PO SCH ×2 (08:33→14:10)
[2018-08-29] MEDS: Gabapentin 300 MG CAP PO SCH ×2 (08:33→20:22)
[2018-08-29] MEDS: Loratadine 10 MG TAB PO SCH (08:33)
[2018-08-29] MEDS: Lantus 1000 UNITS/10 ML VIAL SC SCH ×2 (08:35→20:24)
[2018-08-29] MEDS: Polyethylene Glycol 3350 17 GM Packet PO SCH (08:35)
[2018-08-29] MEDS: Senokot S 8.6-50 MG TAB PO SCH ×2 (08:36→20:25)
[2018-08-29] MEDS: DorzolamidE/Timolol 2%/0.5% Ophth Soln 10 ml Bottle L EYE SCH ×2 (08:36→14:10)
[2018-08-29] MEDS: HumaLOG 300 UNITS/3 ML VIAL SC PRN ×3 (08:37→20:28)
[2018-08-29] MEDS: Simvastatin 5 MG TAB PO SCH (20:25)
[2018-08-29] MEDS: Latanoprost 0.005% Ophth Soln 2.5 ml Bottle L EYE SCH (20:25)
[2018-08-30] MEDS: Polyethylene Glycol 3350 17 GM Packet PO SCH (08:32)
[2018-08-30] MEDS: Carvedilol 12.5 MG TAB PO SCH ×2 (08:33→20:43)
[2018-08-30] MEDS: Potassium Chloride 20 MEQ TAB PO SCH (08:33)
[2018-08-30] MEDS: Amlodipine 5 MG TAB PO SCH (08:33)
[2018-08-30] MEDS: Senokot S 8.6-50 MG TAB PO SCH ×2 (08:33→20:46)
[2018-08-30] MEDS: Ferrous Sulfate 325 MG TAB PO SCH (08:34)
[2018-08-30] MEDS: Furosemide 40 MG TAB PO SCH ×2 (08:34→15:04)
[2018-08-30] MEDS: Loratadine 10 MG TAB PO SCH (08:34)
[2018-08-30] MEDS: Gabapentin 300 MG CAP PO SCH ×2 (08:34→20:43)
[2018-08-30] MEDS: DorzolamidE/Timolol 2%/0.5% Ophth Soln 10 ml Bottle L EYE SCH ×2 (08:34→15:04)
[2018-08-30] MEDS: Lantus 1000 UNITS/10 ML VIAL SC SCH ×2 (08:35→20:46)
[2018-08-30] MEDS: HumaLOG 300 UNITS/3 ML VIAL SC PRN ×3 (11:42→20:48)
[2018-08-30] MEDS: Latanoprost 0.005% Ophth Soln 2.5 ml Bottle L EYE SCH (20:44)
[2018-08-30] MEDS: Simvastatin 5 MG TAB PO SCH (20:45)
[2018-08-31] MEDS: Lantus 1000 UNITS/10 ML VIAL SC SCH ×2 (08:28→21:16)
[2018-08-31] MEDS: HumaLOG 300 UNITS/3 ML VIAL SC PRN ×3 (08:29→21:24)
[2018-08-31] MEDS: Polyethylene Glycol 3350 17 GM Packet PO SCH (08:30)
[2018-08-31] MEDS: Senokot S 8.6-50 MG TAB PO SCH ×2 (08:31→21:15)
[2018-08-31] MEDS: Furosemide 40 MG TAB PO SCH ×2 (08:31→14:22)
[2018-08-31] MEDS: Loratadine 10 MG TAB PO SCH (08:31)
[2018-08-31] MEDS: Gabapentin 300 MG CAP PO SCH ×2 (08:31→21:15)
[2018-08-31] MEDS: Amlodipine 5 MG TAB PO SCH (08:31)
[2018-08-31] MEDS: Potassium Chloride 20 MEQ TAB PO SCH (08:31)
[2018-08-31] MEDS: Ferrous Sulfate 325 MG TAB PO SCH (08:31)
[2018-08-31] MEDS: Carvedilol 12.5 MG TAB PO SCH ×2 (08:32→21:15)
[2018-08-31] MEDS: DorzolamidE/Timolol 2%/0.5% Ophth Soln 10 ml Bottle L EYE SCH ×2 (08:32→14:22)
[2018-08-31] MEDS: Simvastatin 5 MG TAB PO SCH (21:15)
[2018-08-31] MEDS: Latanoprost 0.005% Ophth Soln 2.5 ml Bottle L EYE SCH (21:15)
[2018-09-01] MEDS: Polyethylene Glycol 3350 17 GM Packet PO SCH (08:46)
[2018-09-01] MEDS: Amlodipine 5 MG TAB PO SCH (08:47)
[2018-09-01] MEDS: Carvedilol 12.5 MG TAB PO SCH ×2 (08:47→21:13)
[2018-09-01] MEDS: DorzolamidE/Timolol 2%/0.5% Ophth Soln 10 ml Bottle L EYE SCH ×2 (08:48→15:31)
[2018-09-01] MEDS: Gabapentin 300 MG CAP PO SCH ×2 (08:48→21:13)
[2018-09-01] MEDS: Senokot S 8.6-50 MG TAB PO SCH ×2 (08:48→21:14)
[2018-09-01] MEDS: Furosemide 40 MG TAB PO SCH ×2 (08:48→15:31)
[2018-09-01] MEDS: Ferrous Sulfate 325 MG TAB PO SCH (08:48)
[2018-09-01] MEDS: Loratadine 10 MG TAB PO SCH (08:48)
[2018-09-01] MEDS: Potassium Chloride 20 MEQ TAB PO SCH (08:48)
[2018-09-01] MEDS: Lantus 1000 UNITS/10 ML VIAL SC SCH ×2 (08:49→21:13)
[2018-09-01] MEDS: Latanoprost 0.005% Ophth Soln 2.5 ml Bottle L EYE SCH (21:14)
[2018-09-01] MEDS: Simvastatin 5 MG TAB PO SCH (21:14)
[2018-09-01] MEDS: HumaLOG 300 UNITS/3 ML VIAL SC PRN (21:15)
[2018-09-02 04:53] VITALS: BMI 27.9
[2018-09-02] MEDS: Polyethylene Glycol 3350 17 GM Packet PO SCH (08:06)
[2018-09-02] MEDS: Loratadine 10 MG TAB PO SCH (08:08)
[2018-09-02] MEDS: Senokot S 8.6-50 MG TAB PO SCH ×2 (08:08→20:54)
[2018-09-02] MEDS: Furosemide 40 MG TAB PO SCH ×2 (08:08→14:41)
[2018-09-02] MEDS: Amlodipine 5 MG TAB PO SCH (08:08)
[2018-09-02] MEDS: Gabapentin 300 MG CAP PO SCH ×3 (08:08→21:00)
[2018-09-02] MEDS: Potassium Chloride 20 MEQ TAB PO SCH (08:08)
[2018-09-02] MEDS: Ferrous Sulfate 325 MG TAB PO SCH (08:08)
[2018-09-02] MEDS: Carvedilol 12.5 MG TAB PO SCH ×2 (08:08→20:53)
[2018-09-02] MEDS: DorzolamidE/Timolol 2%/0.5% Ophth Soln 10 ml Bottle L EYE SCH ×2 (08:09→14:41)
[2018-09-02] MEDS: Lantus 1000 UNITS/10 ML VIAL SC SCH ×2 (08:13→20:54)
[2018-09-02] MEDS: HumaLOG 300 UNITS/3 ML VIAL SC PRN ×2 (12:10→17:13)
[2018-09-02] MEDS: Simvastatin 5 MG TAB PO SCH (20:53)
[2018-09-02] MEDS: Latanoprost 0.005% Ophth Soln 2.5 ml Bottle L EYE SCH (20:54)
[2018-09-03] MEDS: Lantus 1000 UNITS/10 ML VIAL SC SCH ×2 (08:00→20:43)
[2018-09-03] MEDS: HumaLOG 300 UNITS/3 ML VIAL SC PRN ×2 (08:01→17:01)
[2018-09-03] MEDS: DorzolamidE/Timolol 2%/0.5% Ophth Soln 10 ml Bottle L EYE SCH ×2 (08:31→14:31)
[2018-09-03] MEDS: Ferrous Sulfate 325 MG TAB PO SCH (08:31)
[2018-09-03] MEDS: Potassium Chloride 20 MEQ TAB PO SCH (08:31)
[2018-09-03] MEDS: Amlodipine 5 MG TAB PO SCH (08:31)
[2018-09-03] MEDS: Loratadine 10 MG TAB PO SCH (08:32)
[2018-09-03] MEDS: Gabapentin 300 MG CAP PO SCH ×3 (08:32→20:44)
[2018-09-03] MEDS: Furosemide 40 MG TAB PO SCH ×2 (08:32→14:31)
[2018-09-03] MEDS: Carvedilol 12.5 MG TAB PO SCH ×2 (08:32→20:46)
[2018-09-03] MEDS: Polyethylene Glycol 3350 17 GM Packet PO SCH (08:32)
[2018-09-03] MEDS: Senokot S 8.6-50 MG TAB PO SCH ×2 (08:32→20:43)
[2018-09-03] MEDS: Simvastatin 5 MG TAB PO SCH (20:44)
[2018-09-03] MEDS: Latanoprost 0.005% Ophth Soln 2.5 ml Bottle L EYE SCH (20:46)
[2018-09-04] MEDS: Lantus 1000 UNITS/10 ML VIAL SC SCH ×2 (07:52→21:02)
[2018-09-04] MEDS: Potassium Chloride 20 MEQ TAB PO SCH (09:06)
[2018-09-04] MEDS: Ferrous Sulfate 325 MG TAB PO SCH (09:06)
[2018-09-04] MEDS: Carvedilol 12.5 MG TAB PO SCH ×2 (09:06→20:57)
[2018-09-04] MEDS: Amlodipine 5 MG TAB PO SCH (09:06)
[2018-09-04] MEDS: Loratadine 10 MG TAB PO SCH (09:06)
[2018-09-04] MEDS: Furosemide 40 MG TAB PO SCH ×2 (09:07→15:26)
[2018-09-04] MEDS: DorzolamidE/Timolol 2%/0.5% Ophth Soln 10 ml Bottle L EYE SCH ×2 (09:07→15:26)
[2018-09-04] MEDS: Polyethylene Glycol 3350 17 GM Packet PO SCH (09:07)
[2018-09-04] MEDS: Gabapentin 300 MG CAP PO SCH ×3 (09:07→20:57)
[2018-09-04] MEDS: Senokot S 8.6-50 MG TAB PO SCH ×2 (09:07→20:57)
[2018-09-04] MEDS: HumaLOG 300 UNITS/3 ML VIAL SC PRN ×2 (11:39→20:58)
[2018-09-04] MEDS: Latanoprost 0.005% Ophth Soln 2.5 ml Bottle L EYE SCH (20:56)
[2018-09-04] MEDS: Simvastatin 5 MG TAB PO SCH (20:57)
[2018-09-05] MEDS: Furosemide 40 MG TAB PO SCH (08:21)
[2018-09-05] MEDS: Amlodipine 5 MG TAB PO SCH (08:21)
[2018-09-05] MEDS: Carvedilol 12.5 MG TAB PO SCH (08:23)
[2018-09-05] MEDS: Potassium Chloride 20 MEQ TAB PO SCH (08:23)
[2018-09-05] MEDS: Gabapentin 300 MG CAP PO SCH (08:24)
[2018-09-05] MEDS: Loratadine 10 MG TAB PO SCH (08:24)
[2018-09-05] MEDS: Ferrous Sulfate 325 MG TAB PO SCH (08:24)
[2018-09-05] MEDS: Polyethylene Glycol 3350 17 GM Packet PO SCH (08:24)
[2018-09-05] MEDS: Lantus 1000 UNITS/10 ML VIAL SC SCH (08:25)
[2018-09-05 08:32] VITALS: BP 105/53; TEMP 97.2
[2018-09-05] MEDS: Senokot S 8.6-50 MG TAB PO SCH (10:06)
[2018-09-05] MEDS: DorzolamidE/Timolol 2%/0.5% Ophth Soln 10 ml Bottle L EYE SCH (10:06)
--- NOTE | 2018-09-09 03:31 | DIS ---
DATE OF ADMISSION: 08/19/2018 DATE OF DISCHARGE: 09/05/2018 ATTENDING PHYSICIAN: Kylie Ramon M.D. REASON FOR ADMISSION: To Skilled rehabilitation in [facility]. DIAGNOSES: 1. Deconditioning/general weakness, improved. 2. Acute on chronic stage 3 diastolic congestive heart failure. 3. Acute on chronic respiratory failure with hypoxia due to congestive heart failure. 4. Pneumonia, community-acquired, treated 5. Recurrent urinary tract infection, treated. 6. Diabetes type 2, insulin requiring. 7. Hypertension, stable. 8. Dyslipidemia. 9. Chronic obstructive pulmonary disease. 10. Unsteady gait. 11. Neuropathic pain. DISPOSITION: Home. CONDITION ON DISCHARGE: Stable. MEDICATIONS: Lasix 40 mg p.o. b.i.d., Neurontin 300 mg p.o. t.i.d., Xalatan eyedrops at bedtime, Cla ritin 10 mg p.o. daily p.r.n., Protonix 40 mg p.o. at bedtime, MiraLax 17 grams p.o. at bedtime, pota ssium chloride 20 mEq p.o. daily, pravastatin 20 mg p.o. at bedtime, Senokot 1 tablet p.o. b.i.d., as pirin 81 mg p.o. daily, dorzolamide/timolol maleate ophthalmic drops 1 drop each b.i.d., Travatan Z o ne drop each eye daily, DuoNeb q.6 hours p.r.n., Lantus 15 units subcu b.i.d., Tylenol 650 mg q.6 loyd rs p.r.n., Proventil HFA 2 puffs q.6 hours p.r.n., amlodipine 10 mg p.o. daily, Coreg 12.5 mg p.o. b. i.d., and ferrous sulfate 325 mg p.o. daily. DIET: Low salt, low fat. ACTIVITIES: To use rolling walker at all times. Leg elevation p.r.n. FOLLOW UP: Follow up with Dr. Ramon in 1-2 weeks, sooner with concerns. Follow up with [facility] as directed. Discharged with [facility] per request for correction, PT and OT. HISTORY OF PRESENT ILLNESS AND HOSPITAL COURSE: Ms. Hand is a very pleasant 77-year-old f emale with multiple chronic medical conditions including CHF; COPD; diabetes, type 2; chronic kidney disease, stage 3; chronic anemia; obesity. The patient was recently admitted 3 times in a row within the past 4-6 weeks at [facility] secondary to recurrent dyspnea. Upon her [facility] admission from the hospital in 07/2018, she was placed on continuous home O2 therapy secondary to persistent hypoxia. The patient was treated with diuretics that led to chronic kidney disease during her last admission. After several of medication adjustments with her diuretics, the patient finally become stable with Lasix 40 mg p.o. b.i.d. with an order of p.r.n., metolazone. The patient remains generally weak and deconditioned. On 08/19/2018, [facility] She was then may benefit from further therapy prior to going back to the home environment. The p atient did have a marked improvement with overall functional status while in rehabilitation. She rem ains symptom free, chest pain free while in rehabilitation. There was no recurrence of significant l eg edema and weight gain during this rehabilitation. She followed up with her Cardiology during the rehabilitation and made no further medication adjustments. She maintains her weight at 170-171 prior to discharge. She was tolerating room air at rest, but she needed O2 with exertion. She is recomme nded to continue O2 at home continuously. She is restricted to 1500 mL per 24 hours of liquid intake and highly recommended to continue even at home. Vital signs prior to discharge, blood pressure 105 /53, temperature 97.2, pulse 69, respirations 20, O2 saturation 94 at room air, weight 171 pounds and 1 ounce, height 5 feet 6 inches.
== END 2018-09-05 12:43 | disposition home health service (06) | DRG 948 ==
LOC: MADMS 17:19
PROVIDERS: ADMIT Family Medicine; ATTEND Family Medicine
DX: R53.1 Weakness (principal); I13.0 Hypertensive heart and chronic kidney disease with heart failure and stage 1 through stage 4 chronic kidney disease, or unspecified chronic kidney disease; I50.32 Chronic diastolic (congestive) heart failure; Z51.89 Encounter for other specified aftercare; J44.9 Chronic obstructive pulmonary disease, unspecified; E11.22 Type 2 diabetes mellitus with diabetic chronic kidney disease; N18.3 Chronic kidney disease, stage 3 (moderate); D64.9 Anemia, unspecified; E66.9 Obesity, unspecified; E11.42 Type 2 diabetes mellitus with diabetic polyneuropathy; E78.5 Hyperlipidemia, unspecified; E11.621 Type 2 diabetes mellitus with foot ulcer; K21.9 Gastro-esophageal reflux disease without esophagitis; H40.9 Unspecified glaucoma; Z89.412 Acquired absence of left great toe; Z87.01 Personal history of pneumonia (recurrent); Z79.4 Long term (current) use of insulin; R26.81 Unsteadiness on feet; Z99.81 Dependence on supplemental oxygen; Z68.27 Body mass index [BMI] 27.0-27.9, adult
CPT/HCPCS: 36416; 90375; G8987-GO-CL; G8988-GO-CH; J1815; J7620

== ENCOUNTER 2018-12-27 19:55 | Emergency (ER) | payer MEDICARE ==
[2018-12-27] MEDS ORDERED: Sodium Chloride 0.9% 1,000 ML ONE (20:57)
[2018-12-27] MEDS ORDERED: Sodium Chloride 0.9% 100 ML ONE (20:57)
[2018-12-27] MEDS ORDERED: cefTRIAXone\\ROCEPHIN 1 GM VIAL ONE ×2 (20:58→21:20)
[2018-12-27] MEDS ORDERED: Acetaminophen 500 MG TAB ONE (20:58)
[2018-12-27] MEDS ORDERED: Sodium Chloride 0.9% 250 ML 250 ML ONE (20:59)
[2018-12-27 21:12] LABS: Hemoglobin 12.5 g/dL (12.0-16.0); Lymphocytes 7 % (21-51); MDiff Complete? YES; Mean Corpuscular HGB CONC 31.6 g/dL (32.0-36.0); Mean Corpuscular Hemoglobin 29.4 pg (27.0-31.0); Mean Corpuscular Volume 93.1 fL (78.0-98.0); Mean Platelet Volume 8.2 fL (7.4-10.4); Monocytes 7 % (0-10); Neutrophil 84 % (42-75); Platelet Count 304 thou/uL (130-400); Platelet Morphology Comment Appears Adequate; RBC Distribution Width 13.6 % (11.5-14.5); RBC Morphology Normal; Reactive Lymphocytes 2 % (0-10); Red Blood Cell (RBC) Count 4.27 mill/uL (4.20-5.40)
[2018-12-27 21:16] LABS: ALT (SGPT) 9 U/L (8-55); AST (SGOT) 14 U/L (5-34); Albumin 3.6 g/dL (3.4-4.8); Alkaline Phosphatase 95 U/L (40-150); Anion Gap 15 mmol/L (10-20); BUN (Urea Nitrogen) 26 mg/dL (9.8-20.1); Bilirubin, Total 0.6 mg/dL (0.2-1.2); Calc. Creatinine Clearance 0 mL/min (70-130); Calcium 9.1 mg/dL (7.8-10.44); Carbon Dioxide 26 mmol/L (23-31); Chloride 103 mmol/L (98-107); Estimated GFR-MDRD 22; Globulin 2.7 g/dL (2.4-3.5); Glucose 280 mg/dL (83-110); Potassium 3.9 mmol/L (3.5-5.1); Protein, Total 6.3 g/dL (6.0-8.3); Sodium 140 mmol/L (136-145)
--- NOTE | 2018-12-27 21:19 | RAD ---
RADIOGRAPH RIGHT FOOT THREE VIEWS: 12/27/18 at 8:55 p.m. HISTORY: 78-year-old female with right foot pain. FINDINGS: No acute fracture identified. There is soft tissue edema, especially of the dorsum of the foot. Hallu x valgus. Mild to moderate DJD at first MTP. Bony hypertrophy of medial aspect of first metatarsal head. No destructive osseous lesion. IMPRESSION: 1. Soft tissue edema. 2. No acute fracture identified. 3. Hallux valgus metatarsus primus varus. 4. 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 POS: [facility]
== END 2018-12-27 22:17 | disposition short-term general hospital (02) ==
LOC: MADERS 19:55
DX: L03.116 Cellulitis of left lower limb (principal); E11.621 Type 2 diabetes mellitus with foot ulcer; L97.529 Non-pressure chronic ulcer of other part of left foot with unspecified severity; E11.65 Type 2 diabetes mellitus with hyperglycemia; K21.9 Gastro-esophageal reflux disease without esophagitis; E78.5 Hyperlipidemia, unspecified; I11.0 Hypertensive heart disease with heart failure; I50.9 Heart failure, unspecified; Z87.891 Personal history of nicotine dependence; Z79.899 Other long term (current) drug therapy; Z79.82 Long term (current) use of aspirin; Z79.4 Long term (current) use of insulin
CPT/HCPCS: 80053; 83605; 85025; 85652; 87040; 87149; 96365; 96367; J0696; J3370; J7050

== ENCOUNTER 2019-01-27 12:42 | Outpatient (CLI) | payer MEDICARE ==
[2019-01-27 13:13] LABS: #Basophils 0.2 thou/uL (0.0-0.2); #Eosinphils 0.2 thou/uL (0.0-0.7); #Lymphocytes 2.4 thou/uL (1.20-3.40); #Monocytes 1.3 thou/uL (0.11-0.59); #Neutrophils 10.6 thou/uL (1.40-6.50); %Basophils 1.4 % (0.0-1.0); %Eosinophils 1.1 % (0.0-10.0); %Lymphocytes 16.3 % (21.0-51.0); %Monocytes 8.8 % (0.0-10.0); %Neutrophils 72.5 % (42.0-75.0); Hemoglobin 12.4 g/dL (12.0-16.0); Mean Corpuscular HGB CONC 30.6 g/dL (32.0-36.0); Mean Corpuscular Hemoglobin 28.8 pg (27.0-31.0); Mean Platelet Volume 8.8 fL (7.4-10.4); Platelet Count 283 thou/uL (130-400); RBC Distribution Width 12.9 % (11.5-14.5); Red Blood Cell (RBC) Count 4.29 mill/uL (4.20-5.40); White Blood Cell (WBC) Count 14.6 thou/uL (4.8-10.8)
[2019-01-27 13:28] LABS: Anion Gap 14 mmol/L (10-20); BUN (Urea Nitrogen) 25 mg/dL (9.8-20.1); Calc. Creatinine Clearance 0 mL/min (70-130); Calcium 9.2 mg/dL (7.8-10.44); Carbon Dioxide 30 mmol/L (23-31); Chloride 103 mmol/L (98-107); Estimated GFR-MDRD 27; Glucose 69 mg/dL (83-110); Phosphorus 3.4 mg/dL (2.3-4.7); Potassium 4.5 mmol/L (3.5-5.1); Sodium 142 mmol/L (136-145)
== END 2019-01-27 12:43 | disposition home or self-care (01) ==
LOC: MADLAB 12:42
PROVIDERS: ATTEND Internal Medicine Nephrology
DX: N18.4 Chronic kidney disease, stage 4 (severe) (principal)
CPT/HCPCS: 36415; 80048; 83970; 84100; 85025

== ENCOUNTER 2019-07-02 15:22 | Outpatient (CLI) | payer MEDICARE ==
--- NOTE | 2019-07-02 17:01 | RAD ---
PA AND LATERAL CHEST X-RAY: 07/02/19 HISTORY: Bilateral leg edema, chronic kidney disease. COMPARISON: 08/16/18. FINDINGS: There is epicardial fat pad at the left lung base with linear scarring seen in the left lower lobe. T he lungs otherwise appear clear. The cardiac silhouette and pulmonary vasculature are within normal limits. Vascular calcifications ar e seen in the thoracic aorta. There is calcification in the anterior longitudinal ligament. Remote le ft sided rib fractures are again seen. No other interval change. IMPRESSION: 1. No acute cardiopulmonary process. 2. Linear scarring and/or atelectasis in the left lower lobe. 3. Remote left sided rib fractures. POS: [facility]
== END 2019-07-02 15:23 | disposition home or self-care (01) ==
LOC: MADRAD 15:22
PROVIDERS: ATTEND Family Medicine
DX: N18.4 Chronic kidney disease, stage 4 (severe) (principal); R60.0 Localized edema
CPT/HCPCS: 71046

== ENCOUNTER 2019-07-06 13:18 | Outpatient (CLI) | payer MEDICARE ==
[2019-07-06 13:24] LABS: Anion Gap 14 mmol/L (10-20); BUN (Urea Nitrogen) 34 mg/dL (9.8-20.1); Calc. Creatinine Clearance 0 mL/min (70-130); Calcium 8.5 mg/dL (7.8-10.44); Carbon Dioxide 27 mmol/L (23-31); Chloride 103 mmol/L (98-107); Estimated GFR-MDRD 20; Potassium 5.2 mmol/L (3.5-5.1); Sodium 139 mmol/L (136-145)
[2019-07-06 13:26] LABS: Glucose 208 mg/dL (83-110)
== END 2019-07-06 13:19 | disposition home or self-care (01) ==
LOC: MADLABBHPM 13:18
PROVIDERS: ATTEND Family Medicine
DX: I50.33 Acute on chronic diastolic (congestive) heart failure (principal); R60.0 Localized edema
CPT/HCPCS: 80048; 83880

== ENCOUNTER 2019-09-14 10:40 | Emergency (ER) | payer MEDICARE ==
--- NOTE | 2019-09-14 11:51 | RAD ---
3 views right foot: 09/14/2019 COMPARISON: 12/27/2018 HISTORY: Diabetes mellitus with cellulitis and foot wounds FINDINGS: There is prominent degenerative change at the first metatarsal-phalangeal joint. There is atherosclerotic calcification along the plantar aspect of the hindfoot and posterior to the distal right tibia. No focal area of osseous destruction. No acute fracture or evidence of dislocation is seen. There is probable dorsal midfoot soft tissue sw elling on the lateral view. Impression: No acute osseous abnormality. If there is clinical concern for osteomyelitis, MRI is advi sed. Soft tissue swelling in the region of the mid foot may signify cellulitis.
[2019-09-14] MEDS ORDERED: Clindamycin/D5W 600 mg/50 ml Premix Bag ONE (12:10)
[2019-09-14 12:21] LABS: Band 1 % (5-11); Eosinophils 2 % (0-10); Hemoglobin 11.7 g/dL (12.0-16.0); Lymphocytes 22 % (21-51); MDiff Complete? YES; Mean Corpuscular HGB CONC 31.2 g/dL (32.0-36.0); Mean Corpuscular Volume 86.3 fL (78.0-98.0); Mean Platelet Volume 7.3 fL (7.4-10.4); Monocytes 6 % (0-10); Neutrophil 69 % (42-75); Platelet Count 334 thou/uL (130-400); RBC Distribution Width 14.2 % (11.5-14.5); Red Blood Cell (RBC) Count 4.33 mill/uL (4.20-5.40); White Blood Cell (WBC) Count 12.2 thou/uL (4.8-10.8)
[2019-09-14 12:27] LABS: ALT (SGPT) 11 U/L (8-55); AST (SGOT) 12 U/L (5-34); Albumin 3.5 g/dL (3.4-4.8); Alkaline Phosphatase 96 U/L (40-110); Anion Gap 15 mmol/L (10-20); BUN (Urea Nitrogen) 28 mg/dL (9.8-20.1); Bilirubin, Total 0.2 mg/dL (0.2-1.2); Calc. Creatinine Clearance 0 mL/min (70-130); Calcium 8.8 mg/dL (7.8-10.44); Carbon Dioxide 30 mmol/L (23-31); Chloride 102 mmol/L (98-107); Estimated GFR-MDRD 24; Globulin 3.2 g/dL (2.4-3.5); Glucose 151 mg/dL (83-110); Potassium 3.9 mmol/L (3.5-5.1); Protein, Total 6.7 g/dL (6.0-8.3); Sodium 143 mmol/L (136-145)
== END 2019-09-14 13:25 | disposition short-term general hospital (02) ==
LOC: MADERS 10:40
DX: E11.621 Type 2 diabetes mellitus with foot ulcer (principal); K21.9 Gastro-esophageal reflux disease without esophagitis; E78.5 Hyperlipidemia, unspecified; I11.0 Hypertensive heart disease with heart failure; I50.9 Heart failure, unspecified; Z87.891 Personal history of nicotine dependence; Z79.899 Other long term (current) drug therapy; Z79.82 Long term (current) use of aspirin; Z79.4 Long term (current) use of insulin
CPT/HCPCS: 36415; 80053; 83605; 85025; 86140; 96365; J3490

== ENCOUNTER 2019-10-27 12:13 | Outpatient (CLI) | payer MEDICARE ==
[2019-10-27 12:47] LABS: Anion Gap 15 mmol/L (10-20); BUN (Urea Nitrogen) 22 mg/dL (9.8-20.1); Calc. Creatinine Clearance 0 mL/min (70-130); Calcium 8.4 mg/dL (7.8-10.44); Carbon Dioxide 24 mmol/L (23-31); Chloride 104 mmol/L (98-107); Estimated GFR-MDRD 30; Glucose 154 mg/dL (83-110); Potassium 3.9 mmol/L (3.5-5.1); Sodium 139 mmol/L (136-145)
== END 2019-10-27 12:14 | disposition home or self-care (01) ==
LOC: MADLAB 12:13
PROVIDERS: ATTEND Internal Medicine Nephrology
DX: N18.4 Chronic kidney disease, stage 4 (severe) (principal)
CPT/HCPCS: 80048

== ENCOUNTER 2019-10-28 12:50 | Emergency (ER) | payer MEDICARE ==
[2019-10-28 13:50] LABS: #Basophils 0.2 thou/uL (0.0-0.2); #Eosinphils 0.3 thou/uL (0.0-0.7); #Lymphocytes 1.8 thou/uL (1.20-3.40); #Monocytes 1.4 thou/uL (0.11-0.59); #Neutrophils 15.3 thou/uL (1.40-6.50); %Basophils 1.1 % (0.0-1.0); %Eosinophils 1.5 % (0.0-10.0); %Lymphocytes 9.3 % (21.0-51.0); %Monocytes 7.3 % (0.0-10.0); %Neutrophils 80.8 % (42.0-75.0); Hemoglobin 10.7 g/dL (12.0-16.0); Mean Corpuscular HGB CONC 29.6 g/dL (32.0-36.0); Mean Corpuscular Hemoglobin 26.7 pg (27.0-31.0); Mean Corpuscular Volume 90.4 fL (78.0-98.0); Mean Platelet Volume 7.3 fL (7.4-10.4); Platelet Count 427 thou/uL (130-400); Red Blood Cell (RBC) Count 4.01 mill/uL (4.20-5.40); White Blood Cell (WBC) Count 18.9 thou/uL (4.8-10.8)
[2019-10-28 14:06] LABS: ALT (SGPT) 10 U/L (8-55); AST (SGOT) 11 U/L (5-34); Albumin 3.1 g/dL (3.4-4.8); Alkaline Phosphatase 87 U/L (40-110); Anion Gap 14 mmol/L (10-20); BUN (Urea Nitrogen) 22 mg/dL (9.8-20.1); Bilirubin, Total 0.3 mg/dL (0.2-1.2); Calc. Creatinine Clearance 0 mL/min (70-130); Calcium 8.6 mg/dL (7.8-10.44); Carbon Dioxide 26 mmol/L (23-31); Chloride 103 mmol/L (98-107); Estimated GFR-MDRD 27; Globulin 2.9 g/dL (2.4-3.5); Glucose 210 mg/dL (83-110); Potassium 4.4 mmol/L (3.5-5.1); Sodium 139 mmol/L (136-145)
[2019-10-28] MEDS ORDERED: Morphine 2 MG/ML SYRINGE ONE (14:06)
[2019-10-28] MEDS ORDERED: Sodium Chloride 0.9% 100 ML ONE (14:06)
[2019-10-28] MEDS ORDERED: Sodium Chloride 0.9% 250 ML 250 ML ONE (14:06)
[2019-10-28] MEDS ORDERED: Piperacillin/Tazobactam 3.375 GM VIAL ONE (14:06)
--- NOTE | 2019-10-28 14:09 | RAD ---
EXAM: 3 views of the right foot HISTORY: Right foot infection COMPARISON: 09/14/2019 FINDINGS: 3 views of the right foot shows no evidence of acute fracture or dislocation. Moderate diff use soft tissue swelling is seen. No osseous erosions are seen. Mild degenerative changes are seen in the great toe metatarsophalangeal joint. IMPRESSION: No evidence of acute osseous abnormality.
== END 2019-10-28 15:05 | disposition short-term general hospital (02) ==
LOC: MADERS 12:50
DX: E11.621 Type 2 diabetes mellitus with foot ulcer (principal); L97.419 Non-pressure chronic ulcer of right heel and midfoot with unspecified severity; L03.115 Cellulitis of right lower limb; I11.0 Hypertensive heart disease with heart failure; I50.9 Heart failure, unspecified; E11.42 Type 2 diabetes mellitus with diabetic polyneuropathy; Z87.891 Personal history of nicotine dependence; Z79.899 Other long term (current) drug therapy; Z79.4 Long term (current) use of insulin
CPT/HCPCS: 36415; 80053; 83605; 85025; 87040; 96365; 96375; J2270; J2543; J3370; J3490; J7050

== ENCOUNTER 2019-11-03 15:53 | Inpatient (IN) | payer MEDICARE ==
[2019-11-03] MEDS ORDERED: Guaifenesin DM 100-10/5 ML UDCUP PO PRN (20:19)
[2019-11-03] MEDS ORDERED: Dextrose 5% in Water 1,000 ML IV PRN (20:25)
[2019-11-03] MEDS ORDERED: Dextrose 50% Abboject 50 ML SYRINGE IVP PRN (20:25)
[2019-11-03] MEDS ORDERED: Bisacodyl 10 MG SUPP PR PRN (20:25)
[2019-11-03] MEDS ORDERED: Cefepime 2 GM VIAL IVPB SCH (20:30)
[2019-11-03] MEDS ORDERED: Non-Formulary Item 1 EACH (Travoprost [Travatan Z] 1 DROP) L EYE SCH (21:00)
[2019-11-03] MEDS ORDERED: Pravastatin Sodium 20 MG TAB PO SCH (21:00)
[2019-11-03] MEDS ORDERED: Cefepime 2 GM in Sodium Chloride 0.9% 100 ML IVPB SCH (21:00)
[2019-11-03] MEDS ORDERED: Non-Formulary Item 1 EACH (Omeprazole [Omeprazole] 20 MG) PO SCH (21:00)
[2019-11-03] MEDS: Lantus 1000 UNITS/10 ML VIAL SC SCH (21:11)
[2019-11-03] MEDS: HumaLOG 300 UNITS/3 ML VIAL SC PRN (21:12)
[2019-11-03] MEDS: Latanoprost 0.005% Ophth Soln 2.5 ml Bottle L EYE SCH (21:13)
[2019-11-03] MEDS: DorzolamidE/Timolol 2%/0.5% Ophth Soln 10 ml Bottle L EYE SCH (21:14)
[2019-11-03] MEDS: metroNIDAZOLE 250 MG TAB PO SCH (21:15)
[2019-11-03] MEDS: Gabapentin 300 MG CAP PO SCH (21:15)
[2019-11-03] MEDS: Simvastatin 5 MG TAB PO SCH (21:15)
[2019-11-03] MEDS: Carvedilol 6.25 MG TAB PO SCH (21:16)
[2019-11-03] MEDS: Aspirin Chewable 81 MG TAB PO SCH (21:16)
[2019-11-03] MEDS: diphenhydrAMINE 25 MG CAP PO PRN (22:33)
[2019-11-03] MEDS ORDERED: Triamcinolone 0.1% Cream 15 GM TUBE TOP SCH (23:00)
[2019-11-04] MEDS: Carvedilol 6.25 MG TAB PO SCH ×2 (08:55→21:09)
[2019-11-04] MEDS: Enoxaparin Sodium 30 MG/0.3 ML SYRINGE SC SCH (08:55)
[2019-11-04] MEDS: metroNIDAZOLE 250 MG TAB PO SCH (08:58)
[2019-11-04] MEDS: Saccharomyces boulardii 250 MG CAP PO SCH (08:58)
[2019-11-04] MEDS: Gabapentin 300 MG CAP PO SCH ×2 (08:58→21:09)
[2019-11-04] MEDS: HumaLOG 300 UNITS/3 ML VIAL SC PRN ×2 (08:59→17:00)
[2019-11-04] MEDS ORDERED: Triamcinolone 0.1% Cream 15 GM TUBE TOP SCH ×2 (09:00→15:00)
[2019-11-04] MEDS ORDERED: Furosemide 20 MG TAB PO SCH (13:15)
[2019-11-04] MEDS: DorzolamidE/Timolol 2%/0.5% Ophth Soln 10 ml Bottle L EYE SCH ×2 (14:04→21:10)
[2019-11-04] MEDS ORDERED: Triamcinolone 0.1% Cream 15 GM TUBE TOP PRN (15:24)
[2019-11-04] MEDS ORDERED: Emollient 15 oz bottle 450 ML, Triamcinolone Acetonide 200 MG TOP SCH (15:30)
--- NOTE | 2019-11-04 20:19 | HP ---
INFECTIOUS DISEASE: Dr. Bhatia. BALANCE BRIDGE INSPECTOR: Dr. Ng. REASON FOR ADMISSION: IV antibiotic for wound infection of the right heel. HISTORY OF THE PRESENT ILLNESS AND HOSPITAL COURSE: Ms. Hand is a 78-year-old female with significant history of diabetes, hypertension, CHF, CKD, dyslipidemia, and neuropathic pain for both feet/legs. The patient has had a history of chronic nonhealing ulcer of the right heel. She is status post left BKA secondary to osteomyelitis, with similar history of nonhealing chronic ulcer. The patient was admitted to [facility] on 10/28/2019 secondary to acute onset of right lower extremity swelling and redness. The patient was initially thought to have cellulitis. On further evaluation in the hospital, MRI of the foot shows superficial ulceration involving the lateral aspect of the posterior heel with underlying osteomyelitis of the posterolateral aspect of the posterior tuberosity of the calcaneus. She also had mild peroneal tenosynovitis. The patient did not wish to have an amputation. She was treated with intravenous antibiotics. Foot ulcer cultures grew gram- negative evelyn, presumptive Pseudomonas, Staphylococcus aureus, and nonhemolytic Streptococcus, Staphylococcus aureus was resistant to amoxicillin, azithromycin, clarithromycin , clindamycin, erythromycin, and piperacillin. Sensitive to amoxicillin/ clavulanic acid, cefaclor, cefepime, cefotaxime, ceftazidime, ceftriaxone, cefuroxime, doxycycline, gentamicin, imipenem, Levaquin, linezolid, moxifloxacin, rifampin. She had a PICC line placed. She was discharged to [facility] to continue IV antibiotic until December 11, 2019 per Infectious Disease recommendation. Prior to discharge, the patient was reported to develop a rash on her back that is pruritic. She was given Benadryl 25 mg p.o. prior to discharge. There was no further order on this. Upon evaluation, the patient's skin rash was stable and localized on the lower back. She denied any discomfort or itching at this point. There was no shortness of breath, lip swelling, or any other signs of anaphylactic reaction. The patient also reports that she was initially treated with IV antibiotic for Lasix, but was discontinued and her oral Lasix was withheld over the course because of her kidney function got worsen. Per report of Dr. Ng followed the patient for this, her initial creatinine upon admission was 1.69 that went up to 1.79 on 10/30/2019. Her kidney function stabilized at 1.5. Her latest BUN prior to discharge was 22 and creatinine 1.50 with estimated GFR of 33 on 11/03/2019. As per consult notes, Dr. Ng recommended to place back the patient on Lasix as soon as renal function stabilized. No other new issues reported at this time. PAST MEDICAL AND SURGICAL HISTORY: Hypertension, CKD, diabetes type 2 insulin requiring, history of peripheral vascular disease, chronic kidney disease stage 3, COPD, right eye blindness, GERD, glaucoma, chronic anemia, CHF with diastolic dysfunction, history of allergic rhinitis, left BKA done in March 2019, prior angiogram for the right foot done by Dr. Rasmussen, right eye blindness, status post left BKA with prosthesis, x3, and dyslipidemia. ALLERGIES: CODEINE. SOCIAL HISTORY: Quit smoking in 1982. Does not have history of alcohol or illicit drug use. FAMILY HISTORY: Mother at the age of 92. Mother has had a history of lung cancer. Father at age of 74, who was a heavy smoker and had emphysema along with heart failure. CURRENT MEDICATIONS: 1. Cefepime 2 g IV q.24 hours. 2. Bisacodyl 10 mg per rectum daily p.r.n. 3. Aspirin 81 mg p.o. at bedtime. 4. Carvedilol 6.25 mg p.o. b.i.d. 5. Dorzolamide hydrochloride/timolol maleate two drops on the left eye b.i.d. 6. Lovenox 30 mg subcu q.a.m. 7. Gabapentin 300 mg p.o. b.i.d. 8. Glucagon 1 mg IM p.r.n. 9. Guaifenesin 15 mL p.o. q.4 hours p.r.n. 10. DuoNeb q.6 hours p.r.n. 11. Lantus 35 units SC at bedtime. 12. Metronidazole 250 mg p.o. t.i.d. 13. Pantoprazole 40 mg p.o. at bedtime. 14. Saccharomyces boulardii 250 mg p.o. daily. 15. Simvastatin 10 mg p.o. at bedtime. 16. Travoprost one drop left eye at bedtime. REVIEW OF SYSTEMS: GENERAL: Denies fever, chills, or fatigue. Reports general weakness. HEENT: No acute visual changes or hearing changes. RESPIRATORY: No shortness of breath, wheezing, pain with breathing, sputum production, or bloody sputum. CARDIO: No chest pain, dyspnea on exertion, or paroxysmal nocturnal dyspnea. Leg edema improved. GI: No nausea, vomiting, abdominal pain, diarrhea, or constipation. No rectal bleeding. GENITOURINARY: No dysuria, hematuria, frequency, urgency, or incontinence unless she does not make it right on time. MUSCULOSKELETAL: Denies joint pain, stiffness, effusion, or redness. NEUROLOGIC: No focal numbness or focal weakness. Reports neuropathic pain on both legs. PSYCHIATRIC: Denies depression, anxiety, or hallucinations. PHYSICAL EXAMINATION: VITAL SIGNS: Blood pressure 177/71; Pulse Rate 70; Temperature 97.6; Respiration 16, 02 sat 93%; Weight 166.6; Height 5feet and 6 inches. GENERAL: Awake, alert, oriented x3, comfortable on exam, not in distress. HEENT: atraumatic, PERRL, intact EOM, nonicteric sclerae. ORAL CAVITY: moist oral mucosa, no oral lesions. CHEST: normal excursion, nonlabored breathing RESPIRATORY: good air movements, clear to auscultation,bilaterally. CARDIO: NSR, normal S1 and S2. ABDOMEN: obese, soft , nondistended, normal bowel sounds, non tender. EXTREMITIES: s/p left BKA- stump is intact and well healed. Right lower leg is covered with clean dressing and leg boot- see pictures for details of the wound, Right lower leg is mildly swollen 1+, minimal pinkish discoloration of the anterior tibia.Negative Elva's sign. No calf tenderness. SKIN: pinkish maculopapular rash scattered on the lower back and upper gluteal region. NEURO: nonfocal, unsteady gait. PSYCH: calm, appropriate demeanor and affect; interactive. MOST CURRENT LABORATORY DATA: On 11/03/2019; WBC 11, hemoglobin 10.1, hematocrit 32.1, platelets 433. Chemistry on 11/03/2019; sodium 141, potassium 4.3, BUN 22 , creatinine 1.50, estimated GFR of 33, glucose 156, calcium 8.4. Beta natriuretic peptide 289.6 on 10/30/2019. A1c 12.4 on 10/28/2019. ASSESSMENT AND PLAN: 1. Osteomyelitis of the right heel, requiring long-term IV antibiotic. 2. Nonhealing wound ulcer on the right heel, chronic. 3. Diabetes type 2, insulin requiring, poorly controlled. 4. Neuropathic pain of both legs/feet. 5. Congestive heart failure, diastolic, compensated. 6. Chronic kidney disease, stage 3. 7. Dyslipidemia. 8. Glaucoma. 9. Skin rash/eruptions, nonspecific. 10. Physical deconditioning. 11. Abnormality of gait. The patient is admitted to Med/Surg to continue antibiotic both IV and oral until May 11, 2020. Continue routine wound care as per hospital instructions. Continue all current medications. We will resume low-dose oral Lasix once confirmed with drainage inspector. We will continue to closely monitor the patient's skin rash. Highly consider antibiotic-induced rash. We will continue oral antihistamine at this time, we will add topical steroid. We will observe overnight. If skin rash persists/pruritus persists, we will consult back to Dr. Bhatia for further recommendations in the morning. PT/OT eval and treat for deconditioning. Further recommendations depending on the hospital course. Follow up with Dr. Bhatia as directed. CODE STATUS: The patient reports FULL CODE. This is consistent with hospital's previous records. Job ID: [id number] MTDD
[2019-11-04] MEDS: Lantus 1000 UNITS/10 ML VIAL SC SCH (21:08)
[2019-11-04] MEDS: Aspirin Chewable 81 MG TAB PO SCH (21:10)
[2019-11-04] MEDS: Latanoprost 0.005% Ophth Soln 2.5 ml Bottle L EYE SCH (21:11)
[2019-11-04] MEDS: Simvastatin 5 MG TAB PO SCH (21:15)
[2019-11-04] MEDS: diphenhydrAMINE 25 MG CAP PO PRN (21:22)
[2019-11-05] MEDS: HumaLOG 300 UNITS/3 ML VIAL SC PRN ×3 (08:00→17:20)
[2019-11-05] MEDS: Carvedilol 6.25 MG TAB PO SCH ×2 (08:57→21:20)
[2019-11-05] MEDS: Saccharomyces boulardii 250 MG CAP PO SCH (08:57)
[2019-11-05] MEDS: Furosemide 20 MG TAB PO SCH (08:57)
[2019-11-05] MEDS: Enoxaparin Sodium 30 MG/0.3 ML SYRINGE SC SCH (08:57)
[2019-11-05] MEDS: Gabapentin 300 MG CAP PO SCH ×2 (08:57→21:21)
[2019-11-05] MEDS: DorzolamidE/Timolol 2%/0.5% Ophth Soln 10 ml Bottle L EYE SCH ×2 (08:58→21:22)
[2019-11-05] MEDS: Emollient 15 oz bottle 450 ML, Triamcinolone Acetonide 200 MG TOP SCH (08:59)
[2019-11-05] MEDS ORDERED: Triamcinolone 0.1% Cream 15 GM TUBE TOP SCH (09:00)
[2019-11-05] MEDS: diphenhydrAMINE 25 MG CAP PO PRN ×2 (11:52→21:21)
[2019-11-05] MEDS: Aspirin Chewable 81 MG TAB PO SCH (21:20)
[2019-11-05] MEDS: Simvastatin 5 MG TAB PO SCH (21:21)
[2019-11-05] MEDS: Latanoprost 0.005% Ophth Soln 2.5 ml Bottle L EYE SCH (21:22)
[2019-11-05] MEDS: Lantus 1000 UNITS/10 ML VIAL SC SCH (21:22)
[2019-11-06 06:03] LABS: #Basophils 0.1 thou/uL (0.0-0.2); #Eosinphils 0.9 thou/uL (0.0-0.7); #Monocytes 1.1 thou/uL (0.11-0.59); #Neutrophils 8.2 thou/uL (1.40-6.50); %Eosinophils 7.7 % (0.0-10.0); %Lymphocytes 16.1 % (21.0-51.0); %Monocytes 8.6 % (0.0-10.0); %Neutrophils 66.7 % (42.0-75.0); Hemoglobin 9.3 g/dL (12.0-16.0); Mean Corpuscular HGB CONC 30.9 g/dL (32.0-36.0); Mean Corpuscular Hemoglobin 26.9 pg (27.0-31.0); Mean Corpuscular Volume 87.3 fL (78.0-98.0); Mean Platelet Volume 7.6 fL (7.4-10.4); Platelet Count 423 thou/uL (130-400); RBC Distribution Width 13.9 % (11.5-14.5); Red Blood Cell (RBC) Count 3.44 mill/uL (4.20-5.40); White Blood Cell (WBC) Count 12.4 thou/uL (4.8-10.8)
[2019-11-06 06:18] LABS: Anion Gap 14 mmol/L (10-20); BUN (Urea Nitrogen) 53 mg/dL (9.8-20.1); CRP (Inflammatory) 1.47 mg/dL (= or < 0.5); Calc. Creatinine Clearance 32 mL/min (70-130); Calcium 8.3 mg/dL (7.8-10.44); Carbon Dioxide 28 mmol/L (23-31); Chloride 105 mmol/L (98-107); Estimated GFR-MDRD 28; Glucose 210 mg/dL (83-110); Potassium 4.5 mmol/L (3.5-5.1); Sodium 142 mmol/L (136-145)
[2019-11-06] MEDS: Gabapentin 300 MG CAP PO SCH ×2 (09:12→21:39)
[2019-11-06] MEDS: diphenhydrAMINE 25 MG CAP PO PRN ×2 (09:12→21:39)
[2019-11-06] MEDS: Furosemide 20 MG TAB PO SCH (09:12)
[2019-11-06] MEDS: Enoxaparin Sodium 30 MG/0.3 ML SYRINGE SC SCH (09:12)
[2019-11-06] MEDS: Carvedilol 6.25 MG TAB PO SCH ×2 (09:12→21:40)
[2019-11-06] MEDS: Saccharomyces boulardii 250 MG CAP PO SCH (09:12)
[2019-11-06] MEDS: Emollient 15 oz bottle 450 ML, Triamcinolone Acetonide 200 MG TOP SCH (09:14)
[2019-11-06] MEDS: HumaLOG 300 UNITS/3 ML VIAL SC PRN ×3 (09:16→21:41)
[2019-11-06] MEDS: DorzolamidE/Timolol 2%/0.5% Ophth Soln 10 ml Bottle L EYE SCH ×2 (09:17→21:40)
[2019-11-06] MEDS ORDERED: Furosemide 20 MG TAB PO SCH (13:30)
[2019-11-06] MEDS: Simvastatin 5 MG TAB PO SCH (21:39)
[2019-11-06] MEDS: Aspirin Chewable 81 MG TAB PO SCH (21:40)
[2019-11-06] MEDS: Latanoprost 0.005% Ophth Soln 2.5 ml Bottle L EYE SCH (21:40)
[2019-11-06] MEDS: Lantus 1000 UNITS/10 ML VIAL SC SCH (21:41)
[2019-11-07] MEDS: Gabapentin 300 MG CAP PO SCH ×2 (09:12→21:21)
[2019-11-07] MEDS: Saccharomyces boulardii 250 MG CAP PO SCH (09:12)
[2019-11-07] MEDS: Enoxaparin Sodium 30 MG/0.3 ML SYRINGE SC SCH (09:12)
[2019-11-07] MEDS: Carvedilol 6.25 MG TAB PO SCH ×2 (09:12→21:21)
[2019-11-07] MEDS: Furosemide 20 MG TAB PO SCH (09:12)
[2019-11-07] MEDS: Emollient 15 oz bottle 450 ML, Triamcinolone Acetonide 200 MG TOP SCH (09:13)
[2019-11-07] MEDS: DorzolamidE/Timolol 2%/0.5% Ophth Soln 10 ml Bottle L EYE SCH ×2 (09:13→21:21)
[2019-11-07] MEDS: HumaLOG 300 UNITS/3 ML VIAL SC PRN ×2 (11:56→16:54)
[2019-11-07] MEDS: Lantus 1000 UNITS/10 ML VIAL SC SCH (21:21)
[2019-11-07] MEDS: Aspirin Chewable 81 MG TAB PO SCH (21:21)
[2019-11-07] MEDS: Latanoprost 0.005% Ophth Soln 2.5 ml Bottle L EYE SCH (21:22)
[2019-11-07] MEDS: Simvastatin 5 MG TAB PO SCH (21:22)
[2019-11-07] MEDS: diphenhydrAMINE 25 MG CAP PO PRN (21:22)
[2019-11-07] MEDS: Triamcinolone 0.1% Cream 15 GM TUBE TOP SCH (21:23)
[2019-11-08] MEDS: Saccharomyces boulardii 250 MG CAP PO SCH (08:31)
[2019-11-08] MEDS: DorzolamidE/Timolol 2%/0.5% Ophth Soln 10 ml Bottle L EYE SCH ×2 (08:31→21:18)
[2019-11-08] MEDS: Triamcinolone 0.1% Cream 15 GM TUBE TOP SCH ×2 (08:31→21:27)
[2019-11-08] MEDS: Carvedilol 6.25 MG TAB PO SCH ×2 (08:32→21:17)
[2019-11-08] MEDS: Gabapentin 300 MG CAP PO SCH ×2 (08:32→21:18)
[2019-11-08] MEDS: Furosemide 20 MG TAB PO SCH (08:32)
[2019-11-08] MEDS: Enoxaparin Sodium 30 MG/0.3 ML SYRINGE SC SCH (08:32)
[2019-11-08] MEDS: Emollient 15 oz bottle 450 ML, Triamcinolone Acetonide 200 MG TOP SCH (08:32)
[2019-11-08] MEDS: HumaLOG 300 UNITS/3 ML VIAL SC PRN ×3 (11:43→21:19)
[2019-11-08] MEDS: Aspirin Chewable 81 MG TAB PO SCH (21:17)
[2019-11-08] MEDS: Latanoprost 0.005% Ophth Soln 2.5 ml Bottle L EYE SCH (21:18)
[2019-11-08] MEDS: Lantus 1000 UNITS/10 ML VIAL SC SCH (21:18)
[2019-11-08] MEDS: Simvastatin 5 MG TAB PO SCH (21:19)
[2019-11-08] MEDS: diphenhydrAMINE 25 MG CAP PO PRN (21:19)
[2019-11-09] MEDS: Carvedilol 6.25 MG TAB PO SCH ×2 (09:05→21:32)
[2019-11-09] MEDS: Furosemide 20 MG TAB PO SCH (09:05)
[2019-11-09] MEDS: Enoxaparin Sodium 30 MG/0.3 ML SYRINGE SC SCH (09:05)
[2019-11-09] MEDS: Gabapentin 300 MG CAP PO SCH ×2 (09:05→21:32)
[2019-11-09] MEDS: DorzolamidE/Timolol 2%/0.5% Ophth Soln 10 ml Bottle L EYE SCH ×2 (09:06→21:34)
[2019-11-09] MEDS: Saccharomyces boulardii 250 MG CAP PO SCH (09:06)
[2019-11-09] MEDS: Triamcinolone 0.1% Cream 15 GM TUBE TOP SCH ×2 (09:07→21:33)
[2019-11-09] MEDS: Emollient 15 oz bottle 450 ML, Triamcinolone Acetonide 200 MG TOP SCH (09:07)
[2019-11-09] MEDS ORDERED: Vancomycin HCl 1 GM in Premix Bag 1 BAG IVPB SCH (10:00)
[2019-11-09] MEDS: Vancomycin HCl 1 GM in Sodium Chloride 0.9% 250 ML 250 ML IVPB SCH (10:56)
[2019-11-09] MEDS: HumaLOG 300 UNITS/3 ML VIAL SC PRN ×3 (12:04→21:30)
[2019-11-09] MEDS ORDERED: VANCOMYCIN IVPB PRN (13:05)
[2019-11-09] MEDS: Lantus 1000 UNITS/10 ML VIAL SC SCH (21:29)
[2019-11-09] MEDS: Simvastatin 5 MG TAB PO SCH (21:31)
[2019-11-09] MEDS: Latanoprost 0.005% Ophth Soln 2.5 ml Bottle L EYE SCH (21:32)
[2019-11-09] MEDS: diphenhydrAMINE 25 MG CAP PO PRN (21:32)
[2019-11-09] MEDS: Aspirin Chewable 81 MG TAB PO SCH (21:32)
[2019-11-10] MEDS: Enoxaparin Sodium 30 MG/0.3 ML SYRINGE SC SCH (08:28)
[2019-11-10] MEDS: Saccharomyces boulardii 250 MG CAP PO SCH (08:28)
[2019-11-10] MEDS: Gabapentin 300 MG CAP PO SCH ×2 (08:28→21:16)
[2019-11-10] MEDS: Carvedilol 6.25 MG TAB PO SCH ×2 (08:28→21:16)
[2019-11-10] MEDS: Furosemide 20 MG TAB PO SCH (08:28)
[2019-11-10] MEDS: DorzolamidE/Timolol 2%/0.5% Ophth Soln 10 ml Bottle L EYE SCH ×2 (08:29→21:35)
[2019-11-10] MEDS: Emollient 15 oz bottle 450 ML, Triamcinolone Acetonide 200 MG TOP SCH (08:29)
[2019-11-10] MEDS: Triamcinolone 0.1% Cream 15 GM TUBE TOP SCH ×2 (08:30→21:37)
[2019-11-10] MEDS: Vancomycin HCl 1 GM in Sodium Chloride 0.9% 250 ML 250 ML IVPB SCH (10:32)
[2019-11-10] MEDS: HumaLOG 300 UNITS/3 ML VIAL SC PRN ×2 (12:07→21:28)
[2019-11-10] MEDS: Aspirin Chewable 81 MG TAB PO SCH (21:16)
[2019-11-10] MEDS: Simvastatin 5 MG TAB PO SCH (21:17)
[2019-11-10] MEDS: Lantus 1000 UNITS/10 ML VIAL SC SCH (21:20)
[2019-11-10] MEDS: diphenhydrAMINE 25 MG CAP PO PRN (21:24)
[2019-11-10] MEDS: Latanoprost 0.005% Ophth Soln 2.5 ml Bottle L EYE SCH (21:36)
[2019-11-11] MEDS: Carvedilol 6.25 MG TAB PO SCH ×2 (08:41→20:15)
[2019-11-11] MEDS: Enoxaparin Sodium 30 MG/0.3 ML SYRINGE SC SCH (08:41)
[2019-11-11] MEDS: Emollient 15 oz bottle 450 ML, Triamcinolone Acetonide 200 MG TOP SCH (08:41)
[2019-11-11] MEDS: Furosemide 20 MG TAB PO SCH (08:41)
[2019-11-11] MEDS: Saccharomyces boulardii 250 MG CAP PO SCH (08:41)
[2019-11-11] MEDS: Gabapentin 300 MG CAP PO SCH ×2 (08:41→20:15)
[2019-11-11] MEDS: DorzolamidE/Timolol 2%/0.5% Ophth Soln 10 ml Bottle L EYE SCH ×2 (08:46→20:21)
[2019-11-11] MEDS: Triamcinolone 0.1% Cream 15 GM TUBE TOP SCH ×2 (08:47→20:20)
[2019-11-11 09:28] LABS: Vancomycin, Trough 14.5 ug/mL
[2019-11-11] MEDS: Vancomycin HCl 1 GM in Sodium Chloride 0.9% 250 ML 250 ML IVPB SCH (11:00)
[2019-11-11] MEDS ORDERED: Senokot S 8.6-50 MG TAB PO PRN (13:10)
[2019-11-11] MEDS: HumaLOG 300 UNITS/3 ML VIAL SC PRN (16:53)
[2019-11-11] MEDS: diphenhydrAMINE 25 MG CAP PO PRN (20:14)
[2019-11-11] MEDS: Senokot S 8.6-50 MG TAB PO SCH (20:15)
[2019-11-11] MEDS: Aspirin Chewable 81 MG TAB PO SCH (20:15)
[2019-11-11] MEDS: Simvastatin 5 MG TAB PO SCH (20:16)
[2019-11-11] MEDS: Latanoprost 0.005% Ophth Soln 2.5 ml Bottle L EYE SCH (20:20)
[2019-11-11] MEDS: Lantus 1000 UNITS/10 ML VIAL SC SCH (20:20)
[2019-11-12] MEDS: Furosemide 20 MG TAB PO SCH (08:50)
[2019-11-12] MEDS: Gabapentin 300 MG CAP PO SCH ×2 (08:50→20:43)
[2019-11-12] MEDS: Carvedilol 6.25 MG TAB PO SCH ×2 (08:50→20:44)
[2019-11-12] MEDS: Enoxaparin Sodium 30 MG/0.3 ML SYRINGE SC SCH (08:51)
[2019-11-12] MEDS: Senokot S 8.6-50 MG TAB PO SCH ×2 (08:51→20:43)
[2019-11-12] MEDS: Emollient 15 oz bottle 450 ML, Triamcinolone Acetonide 200 MG TOP SCH (08:51)
[2019-11-12] MEDS: Saccharomyces boulardii 250 MG CAP PO SCH (08:51)
[2019-11-12] MEDS: DorzolamidE/Timolol 2%/0.5% Ophth Soln 10 ml Bottle L EYE SCH ×2 (08:58→20:44)
[2019-11-12] MEDS: Triamcinolone 0.1% Cream 15 GM TUBE TOP SCH ×2 (08:58→20:53)
[2019-11-12] MEDS: Vancomycin HCl 1 GM in Sodium Chloride 0.9% 250 ML 250 ML IVPB SCH (10:34)
[2019-11-12] MEDS: diphenhydrAMINE 25 MG CAP PO PRN ×2 (13:02→20:43)
[2019-11-12] MEDS: HumaLOG 300 UNITS/3 ML VIAL SC PRN (20:42)
[2019-11-12] MEDS: Lantus 1000 UNITS/10 ML VIAL SC SCH (20:42)
[2019-11-12] MEDS: Simvastatin 5 MG TAB PO SCH (20:43)
[2019-11-12] MEDS: Aspirin Chewable 81 MG TAB PO SCH (20:44)
[2019-11-12] MEDS: Latanoprost 0.005% Ophth Soln 2.5 ml Bottle L EYE SCH (20:44)
[2019-11-13 05:28] LABS: #Basophils 0.1 thou/uL (0.0-0.2); #Eosinphils 0.6 thou/uL (0.0-0.7); #Lymphocytes 1.8 thou/uL (1.20-3.40); #Neutrophils 5.5 thou/uL (1.40-6.50); %Basophils 1.4 % (0.0-1.0); %Eosinophils 7.1 % (0.0-10.0); %Lymphocytes 20.1 % (21.0-51.0); %Monocytes 10.8 % (0.0-10.0); %Neutrophils 60.6 % (42.0-75.0); Hemoglobin 9.3 g/dL (12.0-16.0); Mean Corpuscular HGB CONC 30.3 g/dL (32.0-36.0); Mean Corpuscular Hemoglobin 27.3 pg (27.0-31.0); Mean Corpuscular Volume 90.3 fL (78.0-98.0); Mean Platelet Volume 8.3 fL (7.4-10.4); Platelet Count 306 thou/uL (130-400); RBC Distribution Width 14.8 % (11.5-14.5); White Blood Cell (WBC) Count 9.1 thou/uL (4.8-10.8)
[2019-11-13 05:39] LABS: Anion Gap 12 mmol/L (10-20); BUN (Urea Nitrogen) 53 mg/dL (9.8-20.1); CRP (Inflammatory) 2.82 mg/dL (= or < 0.5); Calc. Creatinine Clearance 34 mL/min (70-130); Calcium 8.4 mg/dL (7.8-10.44); Carbon Dioxide 29 mmol/L (23-31); Chloride 107 mmol/L (98-107); Estimated GFR-MDRD 32; Glucose 86 mg/dL (83-110); Potassium 3.9 mmol/L (3.5-5.1); Sodium 144 mmol/L (136-145)
[2019-11-13] MEDS: DorzolamidE/Timolol 2%/0.5% Ophth Soln 10 ml Bottle L EYE SCH ×2 (08:37→21:22)
[2019-11-13] MEDS: Senokot S 8.6-50 MG TAB PO SCH ×2 (08:37→21:20)
[2019-11-13] MEDS: Gabapentin 300 MG CAP PO SCH ×2 (08:37→21:20)
[2019-11-13] MEDS: Furosemide 20 MG TAB PO SCH (08:37)
[2019-11-13] MEDS: Carvedilol 6.25 MG TAB PO SCH ×2 (08:37→21:19)
[2019-11-13] MEDS: Enoxaparin Sodium 30 MG/0.3 ML SYRINGE SC SCH (08:37)
[2019-11-13] MEDS: Saccharomyces boulardii 250 MG CAP PO SCH (08:37)
[2019-11-13] MEDS: Triamcinolone 0.1% Cream 15 GM TUBE TOP SCH ×2 (08:38→21:25)
[2019-11-13] MEDS: Emollient 15 oz bottle 450 ML, Triamcinolone Acetonide 200 MG TOP SCH (08:38)
[2019-11-13] MEDS: Vancomycin HCl 1 GM in Sodium Chloride 0.9% 250 ML 250 ML IVPB SCH (10:58)
[2019-11-13] MEDS: HumaLOG 300 UNITS/3 ML VIAL SC PRN (17:23)
[2019-11-13] MEDS: Aspirin Chewable 81 MG TAB PO SCH (21:19)
[2019-11-13] MEDS: Latanoprost 0.005% Ophth Soln 2.5 ml Bottle L EYE SCH (21:19)
[2019-11-13] MEDS: Simvastatin 5 MG TAB PO SCH (21:20)
[2019-11-13] MEDS: Lantus 1000 UNITS/10 ML VIAL SC SCH (21:23)
[2019-11-13] MEDS: diphenhydrAMINE 25 MG CAP PO PRN (21:34)
[2019-11-14] MEDS: Enoxaparin Sodium 30 MG/0.3 ML SYRINGE SC SCH (08:22)
[2019-11-14] MEDS: Saccharomyces boulardii 250 MG CAP PO SCH (08:23)
[2019-11-14] MEDS: Carvedilol 6.25 MG TAB PO SCH ×2 (08:23→20:39)
[2019-11-14] MEDS: Gabapentin 300 MG CAP PO SCH ×2 (08:23→20:39)
[2019-11-14] MEDS: Emollient 15 oz bottle 450 ML, Triamcinolone Acetonide 200 MG TOP SCH (08:23)
[2019-11-14] MEDS: Furosemide 20 MG TAB PO SCH (08:23)
[2019-11-14] MEDS: Senokot S 8.6-50 MG TAB PO SCH ×2 (08:23→20:40)
[2019-11-14] MEDS: DorzolamidE/Timolol 2%/0.5% Ophth Soln 10 ml Bottle L EYE SCH ×2 (08:24→17:08)
[2019-11-14] MEDS: Triamcinolone 0.1% Cream 15 GM TUBE TOP SCH ×2 (08:24→20:40)
[2019-11-14 09:22] LABS: Vancomycin, Trough 21.7 ug/mL
[2019-11-14] MEDS: Vancomycin HCl 750 MG in Sodium Chloride 0.9% 250 ML 250 ML IVPB SCH (10:08)
[2019-11-14] MEDS: HumaLOG 300 UNITS/3 ML VIAL SC PRN (11:59)
[2019-11-14] MEDS: Aspirin Chewable 81 MG TAB PO SCH (20:38)
[2019-11-14] MEDS: Lantus 1000 UNITS/10 ML VIAL SC SCH (20:39)
[2019-11-14] MEDS: Latanoprost 0.005% Ophth Soln 2.5 ml Bottle L EYE SCH (20:39)
[2019-11-14] MEDS: Simvastatin 5 MG TAB PO SCH (20:40)
[2019-11-15] MEDS: Carvedilol 6.25 MG TAB PO SCH ×2 (08:27→20:40)
[2019-11-15] MEDS: Gabapentin 300 MG CAP PO SCH ×2 (08:27→20:40)
[2019-11-15] MEDS: Enoxaparin Sodium 30 MG/0.3 ML SYRINGE SC SCH (08:28)
[2019-11-15] MEDS: Saccharomyces boulardii 250 MG CAP PO SCH (08:28)
[2019-11-15] MEDS: Furosemide 20 MG TAB PO SCH (08:28)
[2019-11-15] MEDS: DorzolamidE/Timolol 2%/0.5% Ophth Soln 10 ml Bottle L EYE SCH ×2 (08:29→17:30)
[2019-11-15] MEDS: Senokot S 8.6-50 MG TAB PO SCH ×2 (08:29→20:42)
[2019-11-15] MEDS: Emollient 15 oz bottle 450 ML, Triamcinolone Acetonide 200 MG TOP SCH (08:29)
[2019-11-15] MEDS: Triamcinolone 0.1% Cream 15 GM TUBE TOP SCH ×2 (08:29→20:42)
[2019-11-15] MEDS: Vancomycin HCl 750 MG in Sodium Chloride 0.9% 250 ML 250 ML IVPB SCH (10:45)
[2019-11-15] MEDS: Aspirin Chewable 81 MG TAB PO SCH (20:40)
[2019-11-15] MEDS: Latanoprost 0.005% Ophth Soln 2.5 ml Bottle L EYE SCH (20:41)
[2019-11-15] MEDS: Lantus 1000 UNITS/10 ML VIAL SC SCH (20:41)
[2019-11-15] MEDS: Simvastatin 5 MG TAB PO SCH (20:42)
[2019-11-15] MEDS: Acetaminophen 325 MG TAB PO PRN (21:13)
[2019-11-16] MEDS: Enoxaparin Sodium 30 MG/0.3 ML SYRINGE SC SCH (08:17)
[2019-11-16] MEDS: DorzolamidE/Timolol 2%/0.5% Ophth Soln 10 ml Bottle L EYE SCH ×2 (08:18→17:10)
[2019-11-16] MEDS: Senokot S 8.6-50 MG TAB PO SCH ×2 (08:18→21:00)
[2019-11-16] MEDS: Carvedilol 6.25 MG TAB PO SCH ×2 (08:18→20:59)
[2019-11-16] MEDS: Gabapentin 300 MG CAP PO SCH ×2 (08:18→20:59)
[2019-11-16] MEDS: Saccharomyces boulardii 250 MG CAP PO SCH (08:18)
[2019-11-16] MEDS: Furosemide 20 MG TAB PO SCH (08:18)
[2019-11-16] MEDS: Emollient 15 oz bottle 450 ML, Triamcinolone Acetonide 200 MG TOP SCH (08:19)
[2019-11-16] MEDS: Triamcinolone 0.1% Cream 15 GM TUBE TOP SCH ×2 (08:19→21:01)
[2019-11-16 09:38] LABS: Vancomycin, Trough 19.8 ug/mL
[2019-11-16] MEDS: Vancomycin HCl 750 MG in Sodium Chloride 0.9% 250 ML 250 ML IVPB SCH (10:42)
[2019-11-16] MEDS: HumaLOG 300 UNITS/3 ML VIAL SC PRN ×3 (12:03→21:02)
[2019-11-16] MEDS: Aspirin Chewable 81 MG TAB PO SCH (20:59)
[2019-11-16] MEDS: Lantus 1000 UNITS/10 ML VIAL SC SCH (20:59)
[2019-11-16] MEDS: Latanoprost 0.005% Ophth Soln 2.5 ml Bottle L EYE SCH (21:00)
[2019-11-16] MEDS: Simvastatin 5 MG TAB PO SCH (21:00)
[2019-11-16] MEDS: Acetaminophen 325 MG TAB PO PRN (21:04)
[2019-11-16] MEDS ORDERED: Ondansetron ODT 4 MG TAB SL PRN (22:39)
[2019-11-16] MEDS ORDERED: Simethicone Chewable 80 MG TAB PO PRN (22:39)
[2019-11-17] MEDS: Senokot S 8.6-50 MG TAB PO SCH ×2 (08:26→21:03)
[2019-11-17] MEDS: Gabapentin 300 MG CAP PO SCH ×2 (08:26→21:03)
[2019-11-17] MEDS: Furosemide 20 MG TAB PO SCH (08:26)
[2019-11-17] MEDS: Carvedilol 6.25 MG TAB PO SCH ×2 (08:26→21:03)
[2019-11-17] MEDS: Saccharomyces boulardii 250 MG CAP PO SCH (08:26)
[2019-11-17] MEDS: Enoxaparin Sodium 30 MG/0.3 ML SYRINGE SC SCH (08:27)
[2019-11-17] MEDS: Emollient 15 oz bottle 450 ML, Triamcinolone Acetonide 200 MG TOP SCH (08:27)
[2019-11-17] MEDS: DorzolamidE/Timolol 2%/0.5% Ophth Soln 10 ml Bottle L EYE SCH ×2 (08:27→16:53)
[2019-11-17] MEDS: Triamcinolone 0.1% Cream 15 GM TUBE TOP SCH ×2 (08:27→21:01)
[2019-11-17] MEDS: Vancomycin HCl 750 MG in Sodium Chloride 0.9% 250 ML 250 ML IVPB SCH (10:36)
[2019-11-17] MEDS: HumaLOG 300 UNITS/3 ML VIAL SC PRN (16:54)
[2019-11-17] MEDS ORDERED: Dorzolamide HCl 2% Ophth Soln 10 ml Bottle L EYE SCH (21:00)
[2019-11-17] MEDS: Latanoprost 0.005% Ophth Soln 2.5 ml Bottle L EYE SCH (21:01)
[2019-11-17] MEDS: Lantus 1000 UNITS/10 ML VIAL SC SCH (21:02)
[2019-11-17] MEDS: Simvastatin 5 MG TAB PO SCH (21:02)
[2019-11-17] MEDS: Aspirin Chewable 81 MG TAB PO SCH (21:03)
[2019-11-17] MEDS: Acetaminophen 325 MG TAB PO PRN (21:05)
[2019-11-18] MEDS: diphenhydrAMINE 25 MG CAP PO PRN ×2 (05:04→21:24)
[2019-11-18] MEDS: Furosemide 20 MG TAB PO SCH (08:29)
[2019-11-18] MEDS: Carvedilol 6.25 MG TAB PO SCH ×2 (08:29→21:10)
[2019-11-18] MEDS: Gabapentin 300 MG CAP PO SCH ×2 (08:29→21:09)
[2019-11-18] MEDS: Senokot S 8.6-50 MG TAB PO SCH ×2 (08:29→21:09)
[2019-11-18] MEDS: Saccharomyces boulardii 250 MG CAP PO SCH (08:29)
[2019-11-18] MEDS: DorzolamidE/Timolol 2%/0.5% Ophth Soln 10 ml Bottle L EYE SCH ×2 (08:30→16:34)
[2019-11-18] MEDS: Enoxaparin Sodium 30 MG/0.3 ML SYRINGE SC SCH (08:30)
[2019-11-18] MEDS: Emollient 15 oz bottle 450 ML, Triamcinolone Acetonide 200 MG TOP SCH (08:31)
[2019-11-18] MEDS: Triamcinolone 0.1% Cream 15 GM TUBE TOP SCH ×2 (08:31→21:14)
[2019-11-18] MEDS: Vancomycin HCl 750 MG in Sodium Chloride 0.9% 250 ML 250 ML IVPB SCH (10:58)
[2019-11-18] MEDS: Aspirin Chewable 81 MG TAB PO SCH (21:09)
[2019-11-18] MEDS: Simvastatin 5 MG TAB PO SCH (21:10)
[2019-11-18] MEDS: Lantus 1000 UNITS/10 ML VIAL SC SCH (21:11)
[2019-11-18] MEDS: Latanoprost 0.005% Ophth Soln 2.5 ml Bottle L EYE SCH (21:11)
[2019-11-18] MEDS: Acetaminophen 325 MG TAB PO PRN (21:24)
[2019-11-19] MEDS ORDERED: Fleet Enema 133 ML BOT FS PRN (06:36)
[2019-11-19] MEDS: Enoxaparin Sodium 30 MG/0.3 ML SYRINGE SC SCH (08:30)
[2019-11-19] MEDS: Saccharomyces boulardii 250 MG CAP PO SCH (08:31)
[2019-11-19] MEDS: Furosemide 20 MG TAB PO SCH (08:31)
[2019-11-19] MEDS: Senokot S 8.6-50 MG TAB PO SCH ×2 (08:31→21:00)
[2019-11-19] MEDS: Carvedilol 6.25 MG TAB PO SCH ×2 (08:31→20:58)
[2019-11-19] MEDS: Triamcinolone 0.1% Cream 15 GM TUBE TOP SCH ×2 (08:32→21:12)
[2019-11-19] MEDS: Gabapentin 300 MG CAP PO SCH ×2 (08:32→20:59)
[2019-11-19] MEDS: DorzolamidE/Timolol 2%/0.5% Ophth Soln 10 ml Bottle L EYE SCH ×2 (08:32→17:24)
[2019-11-19] MEDS: Emollient 15 oz bottle 450 ML, Triamcinolone Acetonide 200 MG TOP SCH (08:34)
[2019-11-19 09:23] LABS: Vancomycin, Trough 20.9 ug/mL
[2019-11-19] MEDS: Vancomycin HCl 750 MG in Sodium Chloride 0.9% 250 ML 250 ML IVPB SCH (10:15)
[2019-11-19] MEDS: Aspirin Chewable 81 MG TAB PO SCH (20:58)
[2019-11-19] MEDS: Lantus 1000 UNITS/10 ML VIAL SC SCH (20:59)
[2019-11-19] MEDS: Latanoprost 0.005% Ophth Soln 2.5 ml Bottle L EYE SCH (21:00)
[2019-11-19] MEDS: Simvastatin 5 MG TAB PO SCH (21:00)
[2019-11-19] MEDS: diphenhydrAMINE 25 MG CAP PO PRN (21:00)
[2019-11-19] MEDS: Acetaminophen 325 MG TAB PO PRN (21:04)
[2019-11-20 05:40] LABS: #Basophils 0.2 thou/uL (0.0-0.2); #Eosinphils 0.5 thou/uL (0.0-0.7); #Lymphocytes 1.6 thou/uL (1.20-3.40); #Monocytes 1.1 thou/uL (0.11-0.59); #Neutrophils 10.5 thou/uL (1.40-6.50); %Basophils 1.1 % (0.0-1.0); %Eosinophils 3.7 % (0.0-10.0); %Lymphocytes 11.8 % (21.0-51.0); %Monocytes 7.9 % (0.0-10.0); %Neutrophils 75.5 % (42.0-75.0); Hemoglobin 10.3 g/dL (12.0-16.0); Mean Corpuscular HGB CONC 29.7 g/dL (32.0-36.0); Mean Corpuscular Hemoglobin 26.7 pg (27.0-31.0); Mean Corpuscular Volume 89.9 fL (78.0-98.0); Mean Platelet Volume 7.9 fL (7.4-10.4); Platelet Count 309 thou/uL (130-400); RBC Distribution Width 14.6 % (11.5-14.5); Red Blood Cell (RBC) Count 3.85 mill/uL (4.20-5.40); White Blood Cell (WBC) Count 13.9 thou/uL (4.8-10.8)
[2019-11-20 05:56] LABS: Anion Gap 12 mmol/L (10-20); BUN (Urea Nitrogen) 55 mg/dL (9.8-20.1); CRP (Inflammatory) 3.46 mg/dL (= or < 0.5); Calc. Creatinine Clearance 37 mL/min (70-130); Calcium 8.8 mg/dL (7.8-10.44); Carbon Dioxide 27 mmol/L (23-31); Chloride 111 mmol/L (98-107); Estimated GFR-MDRD 35; Potassium 3.8 mmol/L (3.5-5.1); Sodium 146 mmol/L (136-145)
[2019-11-20 06:08] LABS: Glucose 43 mg/dL (83-110)
[2019-11-20] MEDS: Furosemide 20 MG TAB PO SCH (08:55)
[2019-11-20] MEDS: Saccharomyces boulardii 250 MG CAP PO SCH (08:55)
[2019-11-20] MEDS: DorzolamidE/Timolol 2%/0.5% Ophth Soln 10 ml Bottle L EYE SCH ×2 (08:55→17:08)
[2019-11-20] MEDS: Carvedilol 6.25 MG TAB PO SCH ×2 (08:55→21:10)
[2019-11-20] MEDS: Gabapentin 300 MG CAP PO SCH ×2 (08:56→21:10)
[2019-11-20] MEDS: Senokot S 8.6-50 MG TAB PO SCH ×2 (08:56→21:10)
[2019-11-20] MEDS: Enoxaparin Sodium 30 MG/0.3 ML SYRINGE SC SCH (08:59)
[2019-11-20] MEDS: Vancomycin HCl 750 MG in Sodium Chloride 0.9% 250 ML 250 ML IVPB SCH (09:00)
[2019-11-20] MEDS: Triamcinolone 0.1% Cream 15 GM TUBE TOP SCH ×2 (09:03→21:21)
[2019-11-20] MEDS: Emollient 15 oz bottle 450 ML, Triamcinolone Acetonide 200 MG TOP SCH (09:09)
[2019-11-20] MEDS ORDERED: Prochlorperazine 10 MG/2 ML VIAL ONE (09:18)
[2019-11-20] MEDS ORDERED: Sodium Chloride 0.9% 1,000 ML ONE (09:18)
[2019-11-20] MEDS ORDERED: diphenhydrAMINE 50 MG/ML VIAL ONE (09:18)
[2019-11-20] MEDS: diphenhydrAMINE 25 MG CAP PO PRN (21:09)
[2019-11-20] MEDS: Acetaminophen 325 MG TAB PO PRN (21:10)
[2019-11-20] MEDS: Simvastatin 5 MG TAB PO SCH (21:11)
[2019-11-20] MEDS: Aspirin Chewable 81 MG TAB PO SCH (21:11)
[2019-11-20] MEDS: Lantus 1000 UNITS/10 ML VIAL SC SCH (21:18)
[2019-11-20] MEDS: Latanoprost 0.005% Ophth Soln 2.5 ml Bottle L EYE SCH (21:19)
[2019-11-21] MEDS: Carvedilol 6.25 MG TAB PO SCH ×2 (08:41→20:50)
[2019-11-21] MEDS: Senokot S 8.6-50 MG TAB PO SCH ×2 (08:41→20:51)
[2019-11-21] MEDS: Furosemide 20 MG TAB PO SCH (08:41)
[2019-11-21] MEDS: Enoxaparin Sodium 30 MG/0.3 ML SYRINGE SC SCH (08:41)
[2019-11-21] MEDS: Gabapentin 300 MG CAP PO SCH ×2 (08:41→20:51)
[2019-11-21] MEDS: Saccharomyces boulardii 250 MG CAP PO SCH (08:41)
[2019-11-21] MEDS: DorzolamidE/Timolol 2%/0.5% Ophth Soln 10 ml Bottle L EYE SCH ×2 (08:42→16:47)
[2019-11-21] MEDS: Triamcinolone 0.1% Cream 15 GM TUBE TOP SCH ×2 (08:43→20:50)
[2019-11-21] MEDS: Emollient 15 oz bottle 450 ML, Triamcinolone Acetonide 200 MG TOP SCH (08:43)
[2019-11-21] MEDS: diphenhydrAMINE 25 MG CAP PO PRN ×2 (09:01→20:51)
[2019-11-21] MEDS: Vancomycin HCl 750 MG in Sodium Chloride 0.9% 250 ML 250 ML IVPB SCH (10:20)
[2019-11-21] MEDS: HumaLOG 300 UNITS/3 ML VIAL SC PRN ×2 (16:48→21:29)
[2019-11-21] MEDS: Latanoprost 0.005% Ophth Soln 2.5 ml Bottle L EYE SCH (20:50)
[2019-11-21] MEDS: Lantus 1000 UNITS/10 ML VIAL SC SCH (20:51)
[2019-11-21] MEDS: Acetaminophen 325 MG TAB PO PRN (20:51)
[2019-11-21] MEDS: Aspirin Chewable 81 MG TAB PO SCH (20:51)
[2019-11-21] MEDS: Simvastatin 5 MG TAB PO SCH (20:51)
[2019-11-22] MEDS: Gabapentin 300 MG CAP PO SCH ×2 (08:15→20:25)
[2019-11-22] MEDS: Furosemide 20 MG TAB PO SCH (08:15)
[2019-11-22] MEDS: Carvedilol 6.25 MG TAB PO SCH ×2 (08:15→20:25)
[2019-11-22] MEDS: Saccharomyces boulardii 250 MG CAP PO SCH (08:15)
[2019-11-22] MEDS: Senokot S 8.6-50 MG TAB PO SCH ×2 (08:15→20:26)
[2019-11-22] MEDS: DorzolamidE/Timolol 2%/0.5% Ophth Soln 10 ml Bottle L EYE SCH ×2 (08:16→16:55)
[2019-11-22] MEDS: Emollient 15 oz bottle 450 ML, Triamcinolone Acetonide 200 MG TOP SCH (08:16)
[2019-11-22] MEDS: Triamcinolone 0.1% Cream 15 GM TUBE TOP SCH ×2 (08:16→20:33)
[2019-11-22] MEDS: Enoxaparin Sodium 30 MG/0.3 ML SYRINGE SC SCH (08:16)
[2019-11-22 09:14] LABS: Vancomycin, Trough 21.7 ug/mL
[2019-11-22] MEDS: Vancomycin HCl 750 MG in Sodium Chloride 0.9% 250 ML 250 ML IVPB SCH (11:05)
[2019-11-22] MEDS: Latanoprost 0.005% Ophth Soln 2.5 ml Bottle L EYE SCH (20:25)
[2019-11-22] MEDS: Acetaminophen 325 MG TAB PO PRN (20:25)
[2019-11-22] MEDS: diphenhydrAMINE 25 MG CAP PO PRN (20:26)
[2019-11-22] MEDS: Simvastatin 5 MG TAB PO SCH (20:26)
[2019-11-22] MEDS: Aspirin Chewable 81 MG TAB PO SCH (20:26)
[2019-11-22] MEDS: Lantus 1000 UNITS/10 ML VIAL SC SCH (20:27)
[2019-11-23] MEDS: Enoxaparin Sodium 30 MG/0.3 ML SYRINGE SC SCH (08:39)
[2019-11-23] MEDS: Carvedilol 6.25 MG TAB PO SCH ×2 (08:40→20:30)
[2019-11-23] MEDS: Saccharomyces boulardii 250 MG CAP PO SCH (08:40)
[2019-11-23] MEDS: Senokot S 8.6-50 MG TAB PO SCH ×2 (08:40→20:30)
[2019-11-23] MEDS: DorzolamidE/Timolol 2%/0.5% Ophth Soln 10 ml Bottle L EYE SCH ×2 (08:40→17:10)
[2019-11-23] MEDS: Gabapentin 300 MG CAP PO SCH ×2 (08:40→20:30)
[2019-11-23] MEDS: Furosemide 20 MG TAB PO SCH (08:40)
[2019-11-23] MEDS: Emollient 15 oz bottle 450 ML, Triamcinolone Acetonide 200 MG TOP SCH (08:41)
[2019-11-23] MEDS: Triamcinolone 0.1% Cream 15 GM TUBE TOP SCH ×2 (08:41→20:33)
[2019-11-23] MEDS: Vancomycin HCl 750 MG in Sodium Chloride 0.9% 250 ML 250 ML IVPB SCH (11:06)
[2019-11-23] MEDS: Acetaminophen 325 MG TAB PO PRN (19:16)
--- NOTE | 2019-11-23 19:53 | RAD ---
EXAM: XR Abdomen 1 View/KUB PROVIDED CLINICAL HISTORY: Fluid retention. COMPARISON: 12/30/2018 FINDINGS: There is linear scar versus atelectasis at the left lung base. Small to moderate amount of retained f ecal material is seen in the region of the descending colon. Bowel gas pattern otherwise appears nonspecific. Calcifications overlie the pelvis likely related to phleboliths and vascular calcificati ons. Radiopaque densities overlying the right lower quadrant on the prior study are no longer visualized. Right convex curvature of the lumbar spine is again noted. IMPRESSION: 1. Nonspecific bowel gas pattern.
[2019-11-23] MEDS: Simvastatin 5 MG TAB PO SCH (20:30)
[2019-11-23] MEDS: Aspirin Chewable 81 MG TAB PO SCH (20:30)
[2019-11-23] MEDS: Latanoprost 0.005% Ophth Soln 2.5 ml Bottle L EYE SCH (20:30)
[2019-11-23] MEDS: Lantus 1000 UNITS/10 ML VIAL SC SCH (20:33)
[2019-11-24] MEDS: Enoxaparin Sodium 30 MG/0.3 ML SYRINGE SC SCH (08:23)
[2019-11-24] MEDS: Saccharomyces boulardii 250 MG CAP PO SCH (08:23)
[2019-11-24] MEDS: Gabapentin 300 MG CAP PO SCH ×2 (08:23→20:03)
[2019-11-24] MEDS: DorzolamidE/Timolol 2%/0.5% Ophth Soln 10 ml Bottle L EYE SCH ×2 (08:23→16:53)
[2019-11-24] MEDS: Carvedilol 6.25 MG TAB PO SCH ×2 (08:23→20:03)
[2019-11-24] MEDS: Senokot S 8.6-50 MG TAB PO SCH ×2 (08:23→20:03)
[2019-11-24] MEDS: Furosemide 20 MG TAB PO SCH (08:23)
[2019-11-24] MEDS: Emollient 15 oz bottle 450 ML, Triamcinolone Acetonide 200 MG TOP SCH (08:24)
[2019-11-24] MEDS: Triamcinolone 0.1% Cream 15 GM TUBE TOP SCH ×2 (08:24→20:04)
[2019-11-24] MEDS ORDERED: Metolazone 5 MG TAB PO SCH (08:30)
[2019-11-24 09:21] LABS: Vancomycin, Trough 21.5 ug/mL
[2019-11-24] MEDS: Vancomycin HCl 750 MG in Sodium Chloride 0.9% 250 ML 250 ML IVPB SCH (10:25)
[2019-11-24] MEDS ORDERED: Sodium Chloride Irrig Solution 250 ML BOT ONE (10:29)
[2019-11-24] MEDS ORDERED: Sterile Water Irrigation 250 ML BOT ONE (10:29)
[2019-11-24] MEDS ORDERED: Vancomycin HCl 750 MG in Sodium Chloride 0.9% 250 ML 250 ML IVPB SCH (10:30)
[2019-11-24] MEDS: Lantus 1000 UNITS/10 ML VIAL SC SCH (20:02)
[2019-11-24] MEDS: Latanoprost 0.005% Ophth Soln 2.5 ml Bottle L EYE SCH (20:03)
[2019-11-24] MEDS: Simvastatin 5 MG TAB PO SCH (20:03)
[2019-11-24] MEDS: Aspirin Chewable 81 MG TAB PO SCH (20:03)
[2019-11-24] MEDS: diphenhydrAMINE 25 MG CAP PO PRN (20:09)
[2019-11-25] MEDS: diphenhydrAMINE 25 MG CAP PO PRN ×2 (04:42→21:18)
[2019-11-25] MEDS: Acetaminophen 325 MG TAB PO PRN ×2 (04:42→21:18)
[2019-11-25] MEDS: Gabapentin 300 MG CAP PO SCH ×2 (08:49→21:18)
[2019-11-25] MEDS: Carvedilol 6.25 MG TAB PO SCH ×2 (08:49→21:17)
[2019-11-25] MEDS: Senokot S 8.6-50 MG TAB PO SCH ×2 (08:49→21:18)
[2019-11-25] MEDS: Enoxaparin Sodium 30 MG/0.3 ML SYRINGE SC SCH (08:49)
[2019-11-25] MEDS: Saccharomyces boulardii 250 MG CAP PO SCH (08:50)
[2019-11-25] MEDS: Emollient 15 oz bottle 450 ML, Triamcinolone Acetonide 200 MG TOP SCH (08:50)
[2019-11-25] MEDS: DorzolamidE/Timolol 2%/0.5% Ophth Soln 10 ml Bottle L EYE SCH ×2 (08:50→16:38)
[2019-11-25] MEDS: Furosemide 20 MG TAB PO SCH (08:50)
[2019-11-25] MEDS: Triamcinolone 0.1% Cream 15 GM TUBE TOP SCH ×2 (08:51→21:24)
[2019-11-25] MEDS: Vancomycin HCl 750 MG in Sodium Chloride 0.9% 250 ML 250 ML IVPB SCH (10:30)
[2019-11-25] MEDS: HumaLOG 300 UNITS/3 ML VIAL SC PRN (16:39)
[2019-11-25] MEDS: Aspirin Chewable 81 MG TAB PO SCH (21:17)
[2019-11-25] MEDS: Simvastatin 5 MG TAB PO SCH (21:18)
[2019-11-25] MEDS: Latanoprost 0.005% Ophth Soln 2.5 ml Bottle L EYE SCH (21:18)
[2019-11-25] MEDS: Lantus 1000 UNITS/10 ML VIAL SC SCH (21:19)
[2019-11-26] MEDS: Senokot S 8.6-50 MG TAB PO SCH ×2 (08:20→20:42)
[2019-11-26] MEDS: Enoxaparin Sodium 30 MG/0.3 ML SYRINGE SC SCH (08:20)
[2019-11-26] MEDS: Gabapentin 300 MG CAP PO SCH ×2 (08:20→20:29)
[2019-11-26] MEDS: Carvedilol 6.25 MG TAB PO SCH ×2 (08:20→20:29)
[2019-11-26] MEDS: Furosemide 20 MG TAB PO SCH (08:20)
[2019-11-26] MEDS: Saccharomyces boulardii 250 MG CAP PO SCH (08:20)
[2019-11-26] MEDS: DorzolamidE/Timolol 2%/0.5% Ophth Soln 10 ml Bottle L EYE SCH ×2 (08:20→16:51)
[2019-11-26] MEDS: Triamcinolone 0.1% Cream 15 GM TUBE TOP SCH ×2 (08:21→20:30)
[2019-11-26] MEDS: Emollient 15 oz bottle 450 ML, Triamcinolone Acetonide 200 MG TOP SCH (08:21)
[2019-11-26] MEDS: Vancomycin HCl 750 MG in Sodium Chloride 0.9% 250 ML 250 ML IVPB SCH (10:41)
[2019-11-26] MEDS: Aspirin Chewable 81 MG TAB PO SCH (20:29)
[2019-11-26] MEDS: diphenhydrAMINE 25 MG CAP PO PRN (20:30)
[2019-11-26] MEDS: Acetaminophen 325 MG TAB PO PRN (20:30)
[2019-11-26] MEDS: Latanoprost 0.005% Ophth Soln 2.5 ml Bottle L EYE SCH (20:30)
[2019-11-26] MEDS: Simvastatin 5 MG TAB PO SCH (20:30)
[2019-11-26] MEDS: Lantus 1000 UNITS/10 ML VIAL SC SCH (20:31)
[2019-11-27 05:59] LABS: #Basophils 0.2 thou/uL (0.0-0.2); #Eosinphils 0.6 thou/uL (0.0-0.7); #Lymphocytes 1.9 thou/uL (1.20-3.40); #Monocytes 0.9 thou/uL (0.11-0.59); #Neutrophils 4.7 thou/uL (1.40-6.50); %Eosinophils 6.9 % (0.0-10.0); %Monocytes 10.7 % (0.0-10.0); %Neutrophils 57.4 % (42.0-75.0); Hemoglobin 9.9 g/dL (12.0-16.0); Mean Corpuscular HGB CONC 30.3 g/dL (32.0-36.0); Mean Corpuscular Hemoglobin 26.6 pg (27.0-31.0); Mean Corpuscular Volume 87.7 fL (78.0-98.0); Mean Platelet Volume 8.3 fL (7.4-10.4); Platelet Count 333 thou/uL (130-400); RBC Distribution Width 14.8 % (11.5-14.5); Red Blood Cell (RBC) Count 3.72 mill/uL (4.20-5.40); White Blood Cell (WBC) Count 8.3 thou/uL (4.8-10.8)
[2019-11-27 06:10] LABS: Anion Gap 13 mmol/L (10-20); BUN (Urea Nitrogen) 58 mg/dL (9.8-20.1); Calc. Creatinine Clearance 26 mL/min (70-130); Calcium 8.7 mg/dL (7.8-10.44); Carbon Dioxide 30 mmol/L (23-31); Chloride 106 mmol/L (98-107); Estimated GFR-MDRD 24; Glucose 117 mg/dL (83-110); Potassium 3.6 mmol/L (3.5-5.1); Sodium 145 mmol/L (136-145)
[2019-11-27] MEDS: Saccharomyces boulardii 250 MG CAP PO SCH (09:19)
[2019-11-27] MEDS: Senokot S 8.6-50 MG TAB PO SCH ×2 (09:20→21:51)
[2019-11-27] MEDS: Carvedilol 6.25 MG TAB PO SCH ×2 (09:20→21:50)
[2019-11-27] MEDS: Furosemide 20 MG TAB PO SCH (09:20)
[2019-11-27] MEDS: DorzolamidE/Timolol 2%/0.5% Ophth Soln 10 ml Bottle L EYE SCH ×2 (09:20→17:21)
[2019-11-27] MEDS: Enoxaparin Sodium 30 MG/0.3 ML SYRINGE SC SCH (09:20)
[2019-11-27] MEDS: Vancomycin HCl 750 MG in Sodium Chloride 0.9% 250 ML 250 ML IVPB SCH (09:21)
[2019-11-27] MEDS: Gabapentin 300 MG CAP PO SCH ×2 (09:21→21:50)
[2019-11-27] MEDS: Emollient 15 oz bottle 450 ML, Triamcinolone Acetonide 200 MG TOP SCH (09:22)
[2019-11-27] MEDS: Triamcinolone 0.1% Cream 15 GM TUBE TOP SCH ×2 (09:22→21:52)
[2019-11-27] MEDS: HumaLOG 300 UNITS/3 ML VIAL SC PRN (11:38)
[2019-11-27] MEDS: Aspirin Chewable 81 MG TAB PO SCH (21:50)
[2019-11-27] MEDS: Simvastatin 5 MG TAB PO SCH (21:51)
[2019-11-27] MEDS: Lantus 1000 UNITS/10 ML VIAL SC SCH (21:51)
[2019-11-27] MEDS: Latanoprost 0.005% Ophth Soln 2.5 ml Bottle L EYE SCH (21:51)
[2019-11-27] MEDS: Acetaminophen 325 MG TAB PO PRN (21:57)
[2019-11-27] MEDS: diphenhydrAMINE 25 MG CAP PO PRN (21:57)
[2019-11-28 09:19] LABS: Vancomycin, Trough 17.7 ug/mL
[2019-11-28] MEDS: Gabapentin 300 MG CAP PO SCH ×2 (09:25→21:11)
[2019-11-28] MEDS: Saccharomyces boulardii 250 MG CAP PO SCH (09:25)
[2019-11-28] MEDS: Furosemide 20 MG TAB PO SCH (09:25)
[2019-11-28] MEDS: Senokot S 8.6-50 MG TAB PO SCH ×2 (09:25→21:11)
[2019-11-28] MEDS: Carvedilol 6.25 MG TAB PO SCH ×2 (09:25→21:11)
[2019-11-28] MEDS: DorzolamidE/Timolol 2%/0.5% Ophth Soln 10 ml Bottle L EYE SCH ×2 (09:26→17:03)
[2019-11-28] MEDS: Enoxaparin Sodium 30 MG/0.3 ML SYRINGE SC SCH (09:26)
[2019-11-28] MEDS: Emollient 15 oz bottle 450 ML, Triamcinolone Acetonide 200 MG TOP SCH (09:27)
[2019-11-28] MEDS: Triamcinolone 0.1% Cream 15 GM TUBE TOP SCH ×2 (09:27→21:13)
[2019-11-28] MEDS: Vancomycin HCl 750 MG in Sodium Chloride 0.9% 250 ML 250 ML IVPB SCH (09:27)
[2019-11-28] MEDS: Aspirin Chewable 81 MG TAB PO SCH (21:11)
[2019-11-28] MEDS: Simvastatin 5 MG TAB PO SCH (21:11)
[2019-11-28] MEDS: Latanoprost 0.005% Ophth Soln 2.5 ml Bottle L EYE SCH (21:12)
[2019-11-28] MEDS: Lantus 1000 UNITS/10 ML VIAL SC SCH (21:12)
[2019-11-28] MEDS: Acetaminophen 325 MG TAB PO PRN (21:16)
[2019-11-29] MEDS: Enoxaparin Sodium 30 MG/0.3 ML SYRINGE SC SCH (08:32)
[2019-11-29] MEDS: Gabapentin 300 MG CAP PO SCH ×2 (08:32→21:00)
[2019-11-29] MEDS: Senokot S 8.6-50 MG TAB PO SCH ×2 (08:32→21:01)
[2019-11-29] MEDS: Saccharomyces boulardii 250 MG CAP PO SCH (08:32)
[2019-11-29] MEDS: Furosemide 20 MG TAB PO SCH (08:32)
[2019-11-29] MEDS: Carvedilol 6.25 MG TAB PO SCH ×2 (08:32→21:00)
[2019-11-29] MEDS: DorzolamidE/Timolol 2%/0.5% Ophth Soln 10 ml Bottle L EYE SCH ×2 (08:32→17:13)
[2019-11-29] MEDS: Triamcinolone 0.1% Cream 15 GM TUBE TOP SCH ×2 (08:34→21:02)
[2019-11-29] MEDS: Emollient 15 oz bottle 450 ML, Triamcinolone Acetonide 200 MG TOP SCH (08:35)
[2019-11-29] MEDS: Vancomycin HCl 750 MG in Sodium Chloride 0.9% 250 ML 250 ML IVPB SCH (10:29)
[2019-11-29] MEDS: HumaLOG 300 UNITS/3 ML VIAL SC PRN ×2 (12:20→17:13)
[2019-11-29] MEDS: Lantus 1000 UNITS/10 ML VIAL SC SCH (21:00)
[2019-11-29] MEDS: Aspirin Chewable 81 MG TAB PO SCH (21:00)
[2019-11-29] MEDS: Simvastatin 5 MG TAB PO SCH (21:01)
[2019-11-29] MEDS: Latanoprost 0.005% Ophth Soln 2.5 ml Bottle L EYE SCH (21:01)
[2019-11-29] MEDS: Acetaminophen 325 MG TAB PO PRN (21:07)
[2019-11-29] MEDS: diphenhydrAMINE 25 MG CAP PO PRN (21:07)
[2019-11-30] MEDS: Vancomycin HCl 750 MG in Sodium Chloride 0.9% 250 ML 250 ML IVPB SCH (09:45)
[2019-11-30] MEDS: Gabapentin 300 MG CAP PO SCH ×2 (09:46→21:05)
[2019-11-30] MEDS: Saccharomyces boulardii 250 MG CAP PO SCH (09:46)
[2019-11-30] MEDS: DorzolamidE/Timolol 2%/0.5% Ophth Soln 10 ml Bottle L EYE SCH ×2 (09:47→17:31)
[2019-11-30] MEDS: Senokot S 8.6-50 MG TAB PO SCH ×2 (09:47→21:05)
[2019-11-30] MEDS: Carvedilol 6.25 MG TAB PO SCH ×2 (09:47→21:05)
[2019-11-30] MEDS: Enoxaparin Sodium 30 MG/0.3 ML SYRINGE SC SCH (09:47)
[2019-11-30] MEDS: Furosemide 20 MG TAB PO SCH (09:47)
[2019-11-30] MEDS: Triamcinolone 0.1% Cream 15 GM TUBE TOP SCH ×2 (09:48→21:07)
[2019-11-30] MEDS: Emollient 15 oz bottle 450 ML, Triamcinolone Acetonide 200 MG TOP SCH (09:48)
[2019-11-30] MEDS: HumaLOG 300 UNITS/3 ML VIAL SC PRN ×2 (12:01→21:07)
[2019-11-30] MEDS: Simvastatin 5 MG TAB PO SCH (21:05)
[2019-11-30] MEDS: Aspirin Chewable 81 MG TAB PO SCH (21:05)
[2019-11-30] MEDS: diphenhydrAMINE 25 MG CAP PO PRN (21:05)
[2019-11-30] MEDS: Latanoprost 0.005% Ophth Soln 2.5 ml Bottle L EYE SCH (21:06)
[2019-11-30] MEDS: Acetaminophen 325 MG TAB PO PRN (21:06)
[2019-11-30] MEDS: Lantus 1000 UNITS/10 ML VIAL SC SCH (21:06)
[2019-12-01] MEDS: DorzolamidE/Timolol 2%/0.5% Ophth Soln 10 ml Bottle L EYE SCH ×2 (08:21→16:57)
[2019-12-01] MEDS: Gabapentin 300 MG CAP PO SCH ×2 (08:22→20:46)
[2019-12-01] MEDS: Furosemide 20 MG TAB PO SCH (08:22)
[2019-12-01] MEDS: Triamcinolone 0.1% Cream 15 GM TUBE TOP SCH ×2 (08:22→20:47)
[2019-12-01] MEDS: Saccharomyces boulardii 250 MG CAP PO SCH (08:22)
[2019-12-01] MEDS: Enoxaparin Sodium 30 MG/0.3 ML SYRINGE SC SCH (08:22)
[2019-12-01] MEDS: Senokot S 8.6-50 MG TAB PO SCH ×2 (08:22→20:47)
[2019-12-01] MEDS: Carvedilol 6.25 MG TAB PO SCH ×2 (08:22→20:47)
[2019-12-01] MEDS: Emollient 15 oz bottle 450 ML, Triamcinolone Acetonide 200 MG TOP SCH (08:23)
[2019-12-01 09:37] LABS: Vancomycin, Trough 19.7 ug/mL
[2019-12-01] MEDS ORDERED: Sodium Chloride Irrig Solution 250 ML BOT ONE (10:19)
[2019-12-01] MEDS: Vancomycin HCl 750 MG in Sodium Chloride 0.9% 250 ML 250 ML IVPB SCH (11:04)
[2019-12-01] MEDS: HumaLOG 300 UNITS/3 ML VIAL SC PRN ×2 (11:44→16:59)
[2019-12-01] MEDS: Aspirin Chewable 81 MG TAB PO SCH (20:46)
[2019-12-01] MEDS: Simvastatin 5 MG TAB PO SCH (20:46)
[2019-12-01] MEDS: Latanoprost 0.005% Ophth Soln 2.5 ml Bottle L EYE SCH (20:47)
[2019-12-01] MEDS: Lantus 1000 UNITS/10 ML VIAL SC SCH (20:48)
[2019-12-01] MEDS: diphenhydrAMINE 25 MG CAP PO PRN (21:00)
[2019-12-01] MEDS: Acetaminophen 325 MG TAB PO PRN (21:00)
[2019-12-02] MEDS: Senokot S 8.6-50 MG TAB PO SCH ×2 (08:51→20:07)
[2019-12-02] MEDS: Enoxaparin Sodium 30 MG/0.3 ML SYRINGE SC SCH (08:51)
[2019-12-02] MEDS: Furosemide 20 MG TAB PO SCH (08:51)
[2019-12-02] MEDS: Saccharomyces boulardii 250 MG CAP PO SCH (08:51)
[2019-12-02] MEDS: Gabapentin 300 MG CAP PO SCH ×2 (08:51→20:06)
[2019-12-02] MEDS: Carvedilol 6.25 MG TAB PO SCH ×2 (08:51→20:07)
[2019-12-02] MEDS: Emollient 15 oz bottle 450 ML, Triamcinolone Acetonide 200 MG TOP SCH (08:52)
[2019-12-02] MEDS: Triamcinolone 0.1% Cream 15 GM TUBE TOP SCH ×2 (08:52→20:14)
[2019-12-02] MEDS: DorzolamidE/Timolol 2%/0.5% Ophth Soln 10 ml Bottle L EYE SCH ×2 (08:52→17:13)
[2019-12-02] MEDS: Vancomycin HCl 750 MG in Sodium Chloride 0.9% 250 ML 250 ML IVPB SCH (10:07)
[2019-12-02] MEDS: HumaLOG 300 UNITS/3 ML VIAL SC PRN ×3 (12:05→20:35)
[2019-12-02] MEDS: Simvastatin 5 MG TAB PO SCH (20:06)
[2019-12-02] MEDS: diphenhydrAMINE 25 MG CAP PO PRN (20:06)
[2019-12-02] MEDS: Acetaminophen 325 MG TAB PO PRN (20:06)
[2019-12-02] MEDS: Aspirin Chewable 81 MG TAB PO SCH (20:07)
[2019-12-02] MEDS: Lantus 1000 UNITS/10 ML VIAL SC SCH (20:09)
[2019-12-02] MEDS: Latanoprost 0.005% Ophth Soln 2.5 ml Bottle L EYE SCH (20:12)
[2019-12-03] MEDS: Vancomycin HCl 750 MG in Sodium Chloride 0.9% 250 ML 250 ML IVPB SCH (10:14)
[2019-12-03] MEDS: Furosemide 20 MG TAB PO SCH (10:17)
[2019-12-03] MEDS: Carvedilol 6.25 MG TAB PO SCH ×2 (10:17→20:18)
[2019-12-03] MEDS: Saccharomyces boulardii 250 MG CAP PO SCH (10:18)
[2019-12-03] MEDS: Senokot S 8.6-50 MG TAB PO SCH ×2 (10:18→20:18)
[2019-12-03] MEDS: Enoxaparin Sodium 30 MG/0.3 ML SYRINGE SC SCH (10:18)
[2019-12-03] MEDS: Gabapentin 300 MG CAP PO SCH ×2 (10:18→20:18)
[2019-12-03] MEDS: DorzolamidE/Timolol 2%/0.5% Ophth Soln 10 ml Bottle L EYE SCH ×2 (10:18→16:49)
[2019-12-03] MEDS: Triamcinolone 0.1% Cream 15 GM TUBE TOP SCH ×2 (10:19→20:19)
[2019-12-03] MEDS: diphenhydrAMINE 25 MG CAP PO PRN ×2 (10:21→20:18)
[2019-12-03] MEDS: Emollient 15 oz bottle 450 ML, Triamcinolone Acetonide 200 MG TOP SCH (10:23)
[2019-12-03] MEDS: HumaLOG 300 UNITS/3 ML VIAL SC PRN (11:46)
[2019-12-03] MEDS: Simvastatin 5 MG TAB PO SCH (20:18)
[2019-12-03] MEDS: Acetaminophen 325 MG TAB PO PRN (20:18)
[2019-12-03] MEDS: Aspirin Chewable 81 MG TAB PO SCH (20:19)
[2019-12-03] MEDS: Lantus 1000 UNITS/10 ML VIAL SC SCH (20:22)
[2019-12-03] MEDS: Latanoprost 0.005% Ophth Soln 2.5 ml Bottle L EYE SCH (20:22)
[2019-12-04 05:43] LABS: #Basophils 0.1 thou/uL (0.0-0.2); #Eosinphils 0.6 thou/uL (0.0-0.7); #Lymphocytes 1.8 thou/uL (1.20-3.40); #Monocytes 1.1 thou/uL (0.11-0.59); %Basophils 1.3 % (0.0-1.0); %Eosinophils 5.4 % (0.0-10.0); %Lymphocytes 17.1 % (21.0-51.0); %Monocytes 10.2 % (0.0-10.0); %Neutrophils 66.1 % (42.0-75.0); Hemoglobin 9.6 g/dL (12.0-16.0); Mean Corpuscular Hemoglobin 27.2 pg (27.0-31.0); Mean Corpuscular Volume 87.7 fL (78.0-98.0); Mean Platelet Volume 7.9 fL (7.4-10.4); Platelet Count 301 thou/uL (130-400); RBC Distribution Width 13.7 % (11.5-14.5); Red Blood Cell (RBC) Count 3.55 mill/uL (4.20-5.40); White Blood Cell (WBC) Count 10.7 thou/uL (4.8-10.8)
[2019-12-04 06:00] LABS: Anion Gap 14 mmol/L (10-20); BUN (Urea Nitrogen) 50 mg/dL (9.8-20.1); CRP (Inflammatory) 4.02 mg/dL (= or < 0.5); Calc. Creatinine Clearance 33 mL/min (70-130); Calcium 8.7 mg/dL (7.8-10.44); Carbon Dioxide 26 mmol/L (23-31); Chloride 109 mmol/L (98-107); Estimated GFR-MDRD 32; Glucose 107 mg/dL (83-110); Potassium 3.8 mmol/L (3.5-5.1); Sodium 145 mmol/L (136-145)
[2019-12-04] MEDS: Saccharomyces boulardii 250 MG CAP PO SCH (08:38)
[2019-12-04] MEDS: Senokot S 8.6-50 MG TAB PO SCH ×2 (08:38→21:40)
[2019-12-04] MEDS: Carvedilol 6.25 MG TAB PO SCH ×2 (08:39→21:39)
[2019-12-04] MEDS: Gabapentin 300 MG CAP PO SCH ×2 (08:39→21:39)
[2019-12-04] MEDS: Furosemide 20 MG TAB PO SCH (08:39)
[2019-12-04] MEDS: DorzolamidE/Timolol 2%/0.5% Ophth Soln 10 ml Bottle L EYE SCH ×2 (08:39→19:41)
[2019-12-04] MEDS: Emollient 15 oz bottle 450 ML, Triamcinolone Acetonide 200 MG TOP SCH (08:40)
[2019-12-04] MEDS: Enoxaparin Sodium 30 MG/0.3 ML SYRINGE SC SCH (08:40)
[2019-12-04] MEDS: Polyethylene Glycol 3350 17 GM Packet PO SCH (08:40)
[2019-12-04] MEDS: Triamcinolone 0.1% Cream 15 GM TUBE TOP SCH ×2 (08:42→21:44)
[2019-12-04] MEDS: diphenhydrAMINE 25 MG CAP PO PRN ×2 (08:44→21:40)
[2019-12-04 09:19] LABS: Vancomycin, Trough 22.3 ug/mL
[2019-12-04] MEDS: Vancomycin HCl 750 MG in Sodium Chloride 0.9% 250 ML 250 ML IVPB SCH (09:37)
[2019-12-04] MEDS: Acetaminophen 325 MG TAB PO PRN ×2 (09:37→21:40)
[2019-12-04] MEDS: Latanoprost 0.005% Ophth Soln 2.5 ml Bottle L EYE SCH (21:39)
[2019-12-04] MEDS: Aspirin Chewable 81 MG TAB PO SCH (21:39)
[2019-12-04] MEDS: Lantus 1000 UNITS/10 ML VIAL SC SCH (21:39)
[2019-12-04] MEDS: Simvastatin 5 MG TAB PO SCH (21:40)
[2019-12-05] MEDS: Triamcinolone 0.1% Cream 15 GM TUBE TOP SCH ×2 (08:38→21:25)
[2019-12-05] MEDS: DorzolamidE/Timolol 2%/0.5% Ophth Soln 10 ml Bottle L EYE SCH ×2 (08:39→17:32)
[2019-12-05] MEDS: Enoxaparin Sodium 30 MG/0.3 ML SYRINGE SC SCH (08:39)
[2019-12-05] MEDS: Polyethylene Glycol 3350 17 GM Packet PO SCH (08:39)
[2019-12-05] MEDS: Saccharomyces boulardii 250 MG CAP PO SCH (08:39)
[2019-12-05] MEDS: Emollient 15 oz bottle 450 ML, Triamcinolone Acetonide 200 MG TOP SCH (08:39)
[2019-12-05] MEDS: Carvedilol 6.25 MG TAB PO SCH ×2 (08:40→21:27)
[2019-12-05] MEDS: Furosemide 20 MG TAB PO SCH (08:40)
[2019-12-05] MEDS: Senokot S 8.6-50 MG TAB PO SCH ×2 (08:40→21:25)
[2019-12-05] MEDS: Gabapentin 300 MG CAP PO SCH ×2 (08:40→21:27)
[2019-12-05] MEDS: diphenhydrAMINE 25 MG CAP PO PRN ×2 (08:51→21:24)
[2019-12-05] MEDS: Vancomycin HCl 750 MG in Sodium Chloride 0.9% 250 ML 250 ML IVPB SCH (10:42)
[2019-12-05] MEDS: Acetaminophen 325 MG TAB PO PRN (21:24)
[2019-12-05] MEDS: Simvastatin 5 MG TAB PO SCH (21:24)
[2019-12-05] MEDS: HumaLOG 300 UNITS/3 ML VIAL SC PRN (21:26)
[2019-12-05] MEDS: Latanoprost 0.005% Ophth Soln 2.5 ml Bottle L EYE SCH (21:26)
[2019-12-05] MEDS: Lantus 1000 UNITS/10 ML VIAL SC SCH (21:26)
[2019-12-05] MEDS: Aspirin Chewable 81 MG TAB PO SCH (21:27)
[2019-12-06] MEDS: diphenhydrAMINE 25 MG CAP PO PRN ×2 (08:50→21:01)
[2019-12-06] MEDS: Gabapentin 300 MG CAP PO SCH ×2 (08:50→21:02)
[2019-12-06] MEDS: Polyethylene Glycol 3350 17 GM Packet PO SCH (08:51)
[2019-12-06] MEDS: Carvedilol 6.25 MG TAB PO SCH ×2 (08:51→21:03)
[2019-12-06] MEDS: Senokot S 8.6-50 MG TAB PO SCH ×2 (08:51→21:03)
[2019-12-06] MEDS: Saccharomyces boulardii 250 MG CAP PO SCH (08:51)
[2019-12-06] MEDS: Furosemide 20 MG TAB PO SCH (08:51)
[2019-12-06] MEDS: Enoxaparin Sodium 30 MG/0.3 ML SYRINGE SC SCH (08:51)
[2019-12-06] MEDS: DorzolamidE/Timolol 2%/0.5% Ophth Soln 10 ml Bottle L EYE SCH ×2 (08:51→17:38)
[2019-12-06] MEDS: Triamcinolone 0.1% Cream 15 GM TUBE TOP SCH ×2 (08:52→21:04)
[2019-12-06] MEDS: Emollient 15 oz bottle 450 ML, Triamcinolone Acetonide 200 MG TOP SCH (08:52)
[2019-12-06] MEDS ORDERED: Vancomycin HCl 750 MG in Sodium Chloride 0.9% 250 ML 250 ML IVPB SCH (10:00)
[2019-12-06] MEDS: HumaLOG 300 UNITS/3 ML VIAL SC PRN ×2 (12:07→21:02)
[2019-12-06] MEDS: Acetaminophen 325 MG TAB PO PRN (21:01)
[2019-12-06] MEDS: Latanoprost 0.005% Ophth Soln 2.5 ml Bottle L EYE SCH (21:01)
[2019-12-06] MEDS: Lantus 1000 UNITS/10 ML VIAL SC SCH (21:02)
[2019-12-06] MEDS: Aspirin Chewable 81 MG TAB PO SCH (21:03)
[2019-12-06] MEDS: Simvastatin 5 MG TAB PO SCH (21:03)
[2019-12-07] MEDS: Carvedilol 6.25 MG TAB PO SCH ×2 (08:54→21:22)
[2019-12-07] MEDS: Gabapentin 300 MG CAP PO SCH ×2 (08:54→21:22)
[2019-12-07] MEDS: Enoxaparin Sodium 30 MG/0.3 ML SYRINGE SC SCH (08:55)
[2019-12-07] MEDS: Saccharomyces boulardii 250 MG CAP PO SCH (08:55)
[2019-12-07] MEDS: Senokot S 8.6-50 MG TAB PO SCH ×2 (08:55→21:22)
[2019-12-07] MEDS: Furosemide 20 MG TAB PO SCH (08:55)
[2019-12-07] MEDS: Triamcinolone 0.1% Cream 15 GM TUBE TOP SCH ×2 (08:58→21:23)
[2019-12-07] MEDS: Emollient 15 oz bottle 450 ML, Triamcinolone Acetonide 200 MG TOP SCH (08:58)
[2019-12-07] MEDS: Polyethylene Glycol 3350 17 GM Packet PO SCH (08:58)
[2019-12-07] MEDS: DorzolamidE/Timolol 2%/0.5% Ophth Soln 10 ml Bottle L EYE SCH ×2 (08:59→17:48)
[2019-12-07] MEDS: Vancomycin HCl 500 MG in Sodium Chloride 0.9% 100 ML IVPB SCH (10:24)
[2019-12-07] MEDS: HumaLOG 300 UNITS/3 ML VIAL SC PRN (12:14)
[2019-12-07 14:21] VITALS: BMI 25.9
[2019-12-07] MEDS: diphenhydrAMINE 25 MG CAP PO PRN ×2 (15:04→21:22)
[2019-12-07] MEDS: Acetaminophen 325 MG TAB PO PRN ×2 (15:04→21:22)
[2019-12-07] MEDS: Latanoprost 0.005% Ophth Soln 2.5 ml Bottle L EYE SCH (21:21)
[2019-12-07] MEDS: Lantus 1000 UNITS/10 ML VIAL SC SCH (21:21)
[2019-12-07] MEDS: Simvastatin 5 MG TAB PO SCH (21:22)
[2019-12-07] MEDS: Aspirin Chewable 81 MG TAB PO SCH (21:22)
[2019-12-08] MEDS: Acetaminophen 325 MG TAB PO PRN ×2 (09:36→17:53)
[2019-12-08] MEDS: Carvedilol 6.25 MG TAB PO SCH ×2 (09:36→21:52)
[2019-12-08] MEDS: Saccharomyces boulardii 250 MG CAP PO SCH (09:36)
[2019-12-08] MEDS: Furosemide 20 MG TAB PO SCH (09:36)
[2019-12-08] MEDS: Senokot S 8.6-50 MG TAB PO SCH ×2 (09:36→21:52)
[2019-12-08] MEDS: Gabapentin 300 MG CAP PO SCH ×2 (09:36→21:53)
[2019-12-08] MEDS: Polyethylene Glycol 3350 17 GM Packet PO SCH (09:37)
[2019-12-08] MEDS: Enoxaparin Sodium 30 MG/0.3 ML SYRINGE SC SCH (09:37)
[2019-12-08] MEDS: DorzolamidE/Timolol 2%/0.5% Ophth Soln 10 ml Bottle L EYE SCH ×2 (09:37→17:54)
[2019-12-08] MEDS: Triamcinolone 0.1% Cream 15 GM TUBE TOP SCH ×2 (09:38→21:54)
[2019-12-08] MEDS: Emollient 15 oz bottle 450 ML, Triamcinolone Acetonide 200 MG TOP SCH (09:38)
[2019-12-08] MEDS: Vancomycin HCl 500 MG in Sodium Chloride 0.9% 100 ML IVPB SCH (10:32)
[2019-12-08] MEDS ORDERED: Sodium Chloride Irrig Solution 250 ML BOT ONE (10:50)
[2019-12-08] MEDS: diphenhydrAMINE 25 MG CAP PO PRN (17:53)
[2019-12-08] MEDS: Lantus 1000 UNITS/10 ML VIAL SC SCH (21:49)
[2019-12-08] MEDS: Latanoprost 0.005% Ophth Soln 2.5 ml Bottle L EYE SCH (21:51)
[2019-12-08] MEDS: Aspirin Chewable 81 MG TAB PO SCH (21:52)
[2019-12-08] MEDS: Simvastatin 5 MG TAB PO SCH (21:53)
[2019-12-09] MEDS: Furosemide 20 MG TAB PO SCH (08:29)
[2019-12-09] MEDS: Saccharomyces boulardii 250 MG CAP PO SCH (08:29)
[2019-12-09] MEDS: diphenhydrAMINE 25 MG CAP PO PRN ×2 (08:29→20:32)
[2019-12-09] MEDS: Gabapentin 300 MG CAP PO SCH ×2 (08:29→20:32)
[2019-12-09] MEDS: Carvedilol 6.25 MG TAB PO SCH ×2 (08:29→20:32)
[2019-12-09] MEDS: Senokot S 8.6-50 MG TAB PO SCH ×2 (08:29→20:32)
[2019-12-09] MEDS: Emollient 15 oz bottle 450 ML, Triamcinolone Acetonide 200 MG TOP SCH (08:30)
[2019-12-09] MEDS: Polyethylene Glycol 3350 17 GM Packet PO SCH (08:30)
[2019-12-09] MEDS: DorzolamidE/Timolol 2%/0.5% Ophth Soln 10 ml Bottle L EYE SCH ×2 (08:30→17:33)
[2019-12-09] MEDS: Enoxaparin Sodium 30 MG/0.3 ML SYRINGE SC SCH (08:30)
[2019-12-09] MEDS: Triamcinolone 0.1% Cream 15 GM TUBE TOP SCH ×2 (08:30→20:40)
[2019-12-09 09:32] LABS: Vancomycin, Trough 17.8 ug/mL
[2019-12-09] MEDS: Vancomycin HCl 500 MG in Sodium Chloride 0.9% 100 ML IVPB SCH (10:59)
[2019-12-09] MEDS: HumaLOG 300 UNITS/3 ML VIAL SC PRN (11:57)
[2019-12-09] MEDS: Simvastatin 5 MG TAB PO SCH (20:31)
[2019-12-09] MEDS: Acetaminophen 325 MG TAB PO PRN (20:31)
[2019-12-09] MEDS: Latanoprost 0.005% Ophth Soln 2.5 ml Bottle L EYE SCH (20:33)
[2019-12-09] MEDS: Lantus 1000 UNITS/10 ML VIAL SC SCH (20:37)
[2019-12-09] MEDS: Aspirin Chewable 81 MG TAB PO SCH (20:37)
[2019-12-10] MEDS: Gabapentin 300 MG CAP PO SCH ×2 (08:21→20:03)
[2019-12-10] MEDS: Saccharomyces boulardii 250 MG CAP PO SCH (08:21)
[2019-12-10] MEDS: Polyethylene Glycol 3350 17 GM Packet PO SCH (08:21)
[2019-12-10] MEDS: Senokot S 8.6-50 MG TAB PO SCH ×2 (08:21→20:03)
[2019-12-10] MEDS: DorzolamidE/Timolol 2%/0.5% Ophth Soln 10 ml Bottle L EYE SCH ×2 (08:21→17:44)
[2019-12-10] MEDS: Carvedilol 6.25 MG TAB PO SCH ×2 (08:21→20:03)
[2019-12-10] MEDS: Furosemide 20 MG TAB PO SCH (08:21)
[2019-12-10] MEDS: Enoxaparin Sodium 30 MG/0.3 ML SYRINGE SC SCH (08:21)
[2019-12-10] MEDS: Emollient 15 oz bottle 450 ML, Triamcinolone Acetonide 200 MG TOP SCH (08:22)
[2019-12-10] MEDS: Triamcinolone 0.1% Cream 15 GM TUBE TOP SCH ×2 (08:22→20:02)
[2019-12-10] MEDS: Vancomycin HCl 500 MG in Sodium Chloride 0.9% 100 ML IVPB SCH (11:16)
[2019-12-10] MEDS: HumaLOG 300 UNITS/3 ML VIAL SC PRN (11:54)
[2019-12-10] MEDS: Lantus 1000 UNITS/10 ML VIAL SC SCH (20:01)
[2019-12-10] MEDS: Latanoprost 0.005% Ophth Soln 2.5 ml Bottle L EYE SCH (20:01)
[2019-12-10] MEDS: Acetaminophen 325 MG TAB PO PRN (20:02)
[2019-12-10] MEDS: Simvastatin 5 MG TAB PO SCH (20:02)
[2019-12-10] MEDS: diphenhydrAMINE 25 MG CAP PO PRN (20:03)
[2019-12-10] MEDS: Aspirin Chewable 81 MG TAB PO SCH (20:03)
[2019-12-11 08:11] VITALS: BP 165/71; TEMP 96.8
[2019-12-11] MEDS: Senokot S 8.6-50 MG TAB PO SCH (08:25)
[2019-12-11] MEDS: Furosemide 20 MG TAB PO SCH (08:25)
[2019-12-11] MEDS: Saccharomyces boulardii 250 MG CAP PO SCH (08:25)
[2019-12-11] MEDS: Gabapentin 300 MG CAP PO SCH (08:26)
[2019-12-11] MEDS: DorzolamidE/Timolol 2%/0.5% Ophth Soln 10 ml Bottle L EYE SCH (08:26)
[2019-12-11] MEDS: Enoxaparin Sodium 30 MG/0.3 ML SYRINGE SC SCH (08:26)
[2019-12-11] MEDS: Carvedilol 6.25 MG TAB PO SCH (08:26)
[2019-12-11] MEDS: Triamcinolone 0.1% Cream 15 GM TUBE TOP SCH (08:27)
[2019-12-11] MEDS: Emollient 15 oz bottle 450 ML, Triamcinolone Acetonide 200 MG TOP SCH (08:27)
[2019-12-11] MEDS: Polyethylene Glycol 3350 17 GM Packet PO SCH (08:27)
[2019-12-11] MEDS: Acetaminophen 325 MG TAB PO PRN (08:32)
[2019-12-11] MEDS: diphenhydrAMINE 25 MG CAP PO PRN (08:32)
[2019-12-11] MEDS: Vancomycin HCl 500 MG in Sodium Chloride 0.9% 100 ML IVPB SCH (10:24)
[2019-12-11] MEDS: HumaLOG 300 UNITS/3 ML VIAL SC PRN (12:46)
--- NOTE | 2019-12-12 22:38 | DIS ---
DATE OF ADMISSION: 11/03/2019 DATE OF DISCHARGE: 12/11/2019 INFECTIOUS DISEASE: Dr. Bhatia. TELEPHONE SALES AGENT: Dr. Ng. SEAT MENDER: Dr. Moore. REASON FOR ADMISSION: To complete IV and oral antibiotic therapy in [facility] for osteomyelitis DISCHARGE DIAGNOSES: 1. Osteomyelitis of the right heel requiring long-term IV and oral antibiotic, completed on 12/11/2019. 2. 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 3. Diabetes type 2, insulin requiring, poorly controlled. 4. Neuropathic pain of both legs/feet. 5. Congestive heart failure, diastolic, compensated. 6. Chronic kidney disease stage 3. 7. Dyslipidemia. 8. Glaucoma. 9. Physical deconditioning. 10. History of previous osteomyelitis and nonhealing wound, status post left below-knee amputation. 12. Abnormality of gait secondary to imbalance. DISPOSITION: Home. CONDITION ON DISCHARGE: Stable. HOME MEDICATIONS: 1. Florastor 250 mg p.o. daily. 2. Aspirin 81 mg p.o. at bedtime. 3. Carvedilol 6.25 mg p.o. b.i.d. 4. Dorzolamide/timolol one drop left eye b.i.d. 5. Furosemide 20 mg p.o. daily. 6. Gabapentin 300 mg p.o. b.i.d. 7. Lantus 35 units at bedtime subcutaneously. 8. Omeprazole 20 mg p.o. at bedtime. 9. MiraLAX 17 g p.o. daily. 10. Pravastatin 20 mg p.o. at bedtime. 11. Doculax one tablet p.o. b.i.d. 12. Travoprost one drop on the left eye at bedtime. DIET: 2000 kilocalorie AHA. ACTIVITY: To use rolling walker at all times. HISTORY OF THE PRESENT ILLNESS AND HOSPITAL COURSE: Ms. Hand is a very pleasant 79-year-old with history of diabetes type 2, insulin requiring; hypertension; CHF; CKD stage 3; neuropathy of both feet. The patient has significant history of nonhealing ulcer of the right foot/heel. Patient in under buttermilk drier operator care of [facility], Dr Moore in [place] for this. The patient has been in the hospital several times on this for IV antibiotic therapy. On her last visit in October, the patient was placed on long-term IV antibiotic once again as patient declined any surgical management. Dr. Bhatia, the infectious disease specialist, started her on multiple empiric IV and oral antibiotics this time until she was transferred to [facility] to complete the IV antibiotic of cefepime and metronidazole p.o for 6 week period. The patient's above mentioned medications were started on the day of transfer. Upon admission , patient was noted to have pruritic skin rash on the low back. The patient reports that the rash was initially noted on the day prior to transfer. The patient was observed and overnight and the rash significantly worsened the next day. Dr. Bhatia was reconsulted for this. The patient's antibiotics were changed She was started on Levaquin p.o. and vancomycin IV after the rash has completely resolved few days after. The skin rash had never recurred with the new set of antibiotics. The patient had a serial lab monitoring including CBC, CRP, renal function every week since admission. Her white count significantly trended down from 12 to 13 to 10.7 prior to discharge. Kidney function remained stable at 32. EGFR with BUN of 50 and creatinine of 1.55 prior to discharge. CRP had trended down to 4.02 prior to discharge. The patient tolerated the antibiotic over the course. She completed the above antibiotics on 12/11/[address] Bhatia' instructions The patient also underwent re-physical and occupational rehab while in Swing Bed. Patient remained nonambulatory, but able to transfer with the use of a walker on her own prior to discharge. The patient's multiple wounds on the right heel remained stable over the course. The wounds remained to have continued to have minimal discharge and needing daily dressing. Her wound was treated with MediHoney during her hospital course. She is recommended to follow up with the specialist as follows; 1. Dr. Moore for wound care management on 12/17/2019 at 10:45 a.m. at [facility]. 2. Follow up with Dr. Bhatia on 12/23/2019 at 1530. 3. Follow up with Dr. Ng (to obtain BMP one week prior to the appointment) on 12/23/2019 at 1330. PROCEDURES: 12/11/2019, removal of PICC line prior to discharge. PHYSICAL EXAMINATION: VITAL SIGNS: Prior to discharge; blood pressure 165/71, temperature 96.8, pulse 76, respirations 18, O2 saturation 97% on room air. Weight 160 pounds and 9 ounces. Height 5 feet 6 inches. GENERAL: Patient is awake, alert, and oriented x3. Wheelchair bound. CHEST: Normal excursion. Clear to auscultation bilaterally. CARDIAC: RRR. Normal S1, S2. ABDOMEN: Obese, soft. Normoactive bowel sounds. Nondistended, nontender. No rebound. No guarding. Negative CVA tenderness bilaterally. EXTREMITIES: Left status post BKA, wears prosthetics. Multiple open wounds on the right heel/foot, covered with clean dressing. Trace nonpitting edema of the lower leg up to anterior tibia. Follow up with Dr. Ramon, PCP, on 12/18/2019 as previously scheduled. Patient is instructed to continue Accu-Chek monitoring and to have regular midnight snacks secondary to history of hypoglycemic episodes in the morning. The patient was referred back to [facility] for penitentiary, PT/OT , and wound care. Time spent on this discharge 35 minutes, in examining the patient, coordinating care with the specialists, scheduling the followup appointments and counselling/education with patient regarding her medications,what to watch for and when to go to the ER and/or clinic. Job ID: [id number] [facility] HOSPITALCrispin
== END 2019-12-11 15:10 | disposition home or self-care (01) | DRG 638 ==
LOC: MADMS 18:06
PROVIDERS: ADMIT Family Medicine; ATTEND Family Medicine
DX: E11.69 Type 2 diabetes mellitus with other specified complication (principal); I13.0 Hypertensive heart and chronic kidney disease with heart failure and stage 1 through stage 4 chronic kidney disease, or unspecified chronic kidney disease; I50.32 Chronic diastolic (congestive) heart failure; M86.8X6 Other osteomyelitis, lower leg; L97.919 Non-pressure chronic ulcer of unspecified part of right lower leg with unspecified severity; E11.22 Type 2 diabetes mellitus with diabetic chronic kidney disease; N18.3 Chronic kidney disease, stage 3 (moderate); E78.5 Hyperlipidemia, unspecified; K21.9 Gastro-esophageal reflux disease without esophagitis; R53.81 Other malaise; R26.89 Other abnormalities of gait and mobility; E11.622 Type 2 diabetes mellitus with other skin ulcer; E11.40 Type 2 diabetes mellitus with diabetic neuropathy, unspecified; H40.9 Unspecified glaucoma; L27.0 Generalized skin eruption due to drugs and medicaments taken internally; T36.8X5D Adverse effect of other systemic antibiotics, subsequent encounter; Z89.512 Acquired absence of left leg below knee; Z79.4 Long term (current) use of insulin; Z87.891 Personal history of nicotine dependence; Z79.82 Long term (current) use of aspirin
CPT/HCPCS: 36415; 36416; 74018; 80048; 80202; 85025; 86140; 97602; J0692; J0780; J1200; J1650; J1815; J3301; J3370; J3490; J7050; Q0162; Q0163

== ENCOUNTER 2020-01-21 11:57 | Outpatient (CLI) | payer MEDICARE ==
[2020-01-21 12:29] LABS: ALT (SGPT) Less than 7 U/L (8-55); AST (SGOT) 8 U/L (5-34); Albumin 2.6 g/dL (3.4-4.8); Alkaline Phosphatase 68 U/L (40-110); Anion Gap 13 mmol/L (10-20); BUN (Urea Nitrogen) 20 mg/dL (9.8-20.1); Bilirubin, Total 0.4 mg/dL (0.2-1.2); Calc. Creatinine Clearance 0 mL/min (70-130); Calcium 7.9 mg/dL (7.8-10.44); Carbon Dioxide 27 mmol/L (23-31); Chloride 104 mmol/L (98-107); Estimated GFR-MDRD 33; Globulin 2.4 g/dL (2.4-3.5); Potassium 4.3 mmol/L (3.5-5.1); Sodium 140 mmol/L (136-145)
[2020-01-21 12:42] LABS: Glucose 49 mg/dL (83-110)
[2020-01-21 17:46] LABS: Hemoglobin A1c 7.2 % (4.0-6.0)
== END 2020-01-21 11:58 | disposition home or self-care (01) ==
LOC: MADLABBHPM 11:57
PROVIDERS: ATTEND Family Medicine
DX: L89.610 Pressure ulcer of right heel, unstageable (principal); I87.331 Chronic venous hypertension (idiopathic) with ulcer and inflammation of right lower extremity; I13.0 Hypertensive heart and chronic kidney disease with heart failure and stage 1 through stage 4 chronic kidney disease, or unspecified chronic kidney disease; E11.22 Type 2 diabetes mellitus with diabetic chronic kidney disease; N18.4 Chronic kidney disease, stage 4 (severe); I50.32 Chronic diastolic (congestive) heart failure; E11.42 Type 2 diabetes mellitus with diabetic polyneuropathy; E11.8 Type 2 diabetes mellitus with unspecified complications
CPT/HCPCS: 80053; 83036

== ENCOUNTER 2020-01-22 11:24 | Outpatient (CLI) | payer MEDICARE ==
[2020-01-22 17:36] LABS: Creatinine, Urine 106.98 mg/dL (47-110); Microalbumin Urine 4.4 mg/dL (0.5-50.0); Microalbumin/Creat Ratio 41.1 mg/g (Less than 30)
== END 2020-01-22 11:25 | disposition home or self-care (01) ==
LOC: MADLABBHPM 11:24
PROVIDERS: ATTEND Family Medicine
DX: E11.42 Type 2 diabetes mellitus with diabetic polyneuropathy (principal); E11.51 Type 2 diabetes mellitus with diabetic peripheral angiopathy without gangrene; I13.0 Hypertensive heart and chronic kidney disease with heart failure and stage 1 through stage 4 chronic kidney disease, or unspecified chronic kidney disease; I50.32 Chronic diastolic (congestive) heart failure; E11.22 Type 2 diabetes mellitus with diabetic chronic kidney disease; N18.9 Chronic kidney disease, unspecified
CPT/HCPCS: 82043

== ENCOUNTER 2020-02-08 13:12 | Emergency (ER) | payer MEDICARE ==
[2020-02-08 14:00] LABS: Bilirubin Negative (Negative); Blood, Urine Small (Negative); Clarity Slightly Cloudy (Clear); Glucose, Urine (Dipstick) 100 mg/dL (Negative); Leukocyte Moderate (Negative); Nitrite Negative (Negative); Protein, Urine (Dipstick) Negative (Neg-Trace); Urobilinogen 0.2 mg/dL (Less than 2)
[2020-02-08 14:05] LABS: Bacteria/HPF 1+ HPF (None Seen); RBC/HPF 0-3 HPF (0-3); WBC/HPF Greater than 50 HPF (0-3)
== END 2020-02-08 14:20 | disposition home or self-care (01) ==
LOC: MADERS 13:12
DX: N39.0 Urinary tract infection, site not specified (principal); I11.0 Hypertensive heart disease with heart failure; I50.9 Heart failure, unspecified; G62.9 Polyneuropathy, unspecified; E11.9 Type 2 diabetes mellitus without complications; Z87.891 Personal history of nicotine dependence; Z79.4 Long term (current) use of insulin; Z79.891 Long term (current) use of opiate analgesic; Z79.82 Long term (current) use of aspirin
CPT/HCPCS: 81003; 81015; 87086; 99283

== ENCOUNTER 2020-02-16 15:46 | Emergency (ER) | payer MEDICARE ==
[~2020-02-16 15:46] MED LIST changes: -Sodium Chloride 0.9% 1,000 ML BAG ONE; +Sodium Chloride 0.9% 500 ML BAG ONE
[2020-02-16] MEDS ORDERED: Cefepime 2 GM VIAL ONE (17:14)
[2020-02-16 17:15] LABS: ALT (SGPT) 9 U/L (8-55); AST (SGOT) 10 U/L (5-34); Albumin 2.8 g/dL (3.4-4.8); Alkaline Phosphatase 79 U/L (40-110); Anion Gap 15 mmol/L (10-20); BUN (Urea Nitrogen) 21 mg/dL (9.8-20.1); Bilirubin, Total 0.2 mg/dL (0.2-1.2); CK (CPK) 24 U/L (29-168); Calc. Creatinine Clearance 0 mL/min (70-130); Calcium 8.4 mg/dL (7.8-10.44); Carbon Dioxide 27 mmol/L (23-31); Chloride 100 mmol/L (98-107); Estimated GFR-MDRD 28; Globulin 3.5 g/dL (2.4-3.5); Glucose 163 mg/dL (83-110); Potassium 3.7 mmol/L (3.5-5.1); Protein, Total 6.3 g/dL (6.0-8.3); Sodium 138 mmol/L (136-145)
[2020-02-16 17:16] LABS: #Basophils 0.2 thou/uL (0.0-0.2); #Eosinphils 0.5 thou/uL (0.0-0.7); #Lymphocytes 1.8 thou/uL (1.20-3.40); #Monocytes 1.2 thou/uL (0.11-0.59); #Neutrophils 11.7 thou/uL (1.40-6.50); %Basophils 1.4 % (0.0-1.0); %Eosinophils 3.5 % (0.0-10.0); %Lymphocytes 11.6 % (21.0-51.0); %Monocytes 7.6 % (0.0-10.0); %Neutrophils 75.9 % (42.0-75.0); Hemoglobin 10.2 g/dL (12.0-16.0); Hypochromia SLIGHT = 6-15 cells (100X) (0-5/hpf); MDiff Complete? YES; Mean Corpuscular HGB CONC 29.6 g/dL (32.0-36.0); Mean Corpuscular Volume 81.2 fL (78.0-98.0); Mean Platelet Volume 6.4 fL (7.4-10.4); Platelet Count 546 thou/uL (130-400); RBC Distribution Width 14.3 % (11.5-14.5); Red Blood Cell (RBC) Count 4.23 mill/uL (4.20-5.40); White Blood Cell (WBC) Count 15.4 thou/uL (4.8-10.8)
[2020-02-16 17:18] LABS: Bilirubin Negative (Negative); Blood, Urine Trace (Negative); Clarity Clear (Clear); Glucose, Urine (Dipstick) Negative (Negative); Leukocyte Negative (Negative); Nitrite Negative (Negative); Protein, Urine (Dipstick) Negative (Neg-Trace); Urobilinogen 0.2 mg/dL (Less than 2)
[2020-02-16 17:19] LABS: Bacteria/HPF Rare-Few HPF (None Seen); RBC/HPF 0-3 HPF (0-3); Squamous Epithelial 0-3 HPF (0-3); WBC/HPF 0-3 HPF (0-3)
--- NOTE | 2020-02-16 18:07 | RAD ---
THREE VIEWS OF THE RIGHT FOOT: 02/16/20 INDICATION: History of pain. FINDINGS: There is prominent amount of surface artifact overlying the patient's skin of the right foreleg and f oot may be related to skin ointment. There is scattered forefoot and midfoot osteoarthrosis. No defin ite acute fracture is evident. IMPRESSION: 1. Limited examination due to overlying surface artifact. 2. Scattered osteoarthrosis of the right foot. POS: BH
[2020-02-16] MEDS ORDERED: Vancomycin HCl 750 MG VIAL ONE (18:15)
== END 2020-02-16 20:58 | disposition short-term general hospital (02) ==
LOC: MADERS 15:46
DX: L03.115 Cellulitis of right lower limb (principal); K21.9 Gastro-esophageal reflux disease without esophagitis; E78.5 Hyperlipidemia, unspecified; I11.0 Hypertensive heart disease with heart failure; I50.9 Heart failure, unspecified; E11.42 Type 2 diabetes mellitus with diabetic polyneuropathy; Z87.891 Personal history of nicotine dependence; Z79.4 Long term (current) use of insulin; Z79.82 Long term (current) use of aspirin; Z79.899 Other long term (current) drug therapy
CPT/HCPCS: 36415; 51701; 80053; 81003; 81015; 82550; 83605; 85025; 87040; 87086; 96365; 96366; 96367; A4353; J0692; J3370; J3490; J7050

== ENCOUNTER 2021-03-20 12:16 | Emergency (ER) | payer MEDICARE ==
[2021-03-20] MEDS ORDERED: Aspirin Chewable 81 MG TAB ONE (12:45)
[2021-03-20 13:16] LABS: #Basophils 0.1 thou/uL (0.0-0.2); #Eosinphils 0.2 thou/uL (0.0-0.7); #Lymphocytes 1.4 thou/uL (1.20-3.40); #Monocytes 0.5 thou/uL (0.11-0.59); #Neutrophils 5.9 thou/uL (1.40-6.50); %Basophils 0.9 % (0.0-1.0); %Lymphocytes 17.2 % (21.0-51.0); %Monocytes 5.8 % (0.0-10.0); %Neutrophils 74.2 % (42.0-75.0); Hemoglobin 13.5 g/dL (12.0-16.0); Mean Corpuscular HGB CONC 31.9 g/dL (32.0-36.0); Mean Corpuscular Hemoglobin 29.7 pg (27.0-31.0); Mean Corpuscular Volume 92.9 fL (78.0-98.0); Mean Platelet Volume 9.8 fL (7.4-10.4); Platelet Count 259 thou/uL (130-400); RBC Distribution Width 11.9 % (11.5-14.5); Red Blood Cell (RBC) Count 4.54 mill/uL (4.20-5.40); White Blood Cell (WBC) Count 7.9 thou/uL (4.8-10.8)
[2021-03-20 13:36] LABS: ALT (SGPT) 10 U/L (8-55); AST (SGOT) 12 U/L (5-34); Albumin 3.7 g/dL (3.4-4.8); Alkaline Phosphatase 79 U/L (40-110); Anion Gap 12 mmol/L (10-20); BUN (Urea Nitrogen) 33 mg/dL (9.8-20.1); Bilirubin, Total 0.3 mg/dL (0.2-1.2); CK (CPK) 68 U/L (29-168); Calc. Creatinine Clearance 0 mL/min (70-130); Calcium 8.8 mg/dL (7.8-10.44); Carbon Dioxide 31 mmol/L (23-31); Chloride 103 mmol/L (98-107); Globulin 2.9 g/dL (2.4-3.5); Glucose 197 mg/dL (83-110); Potassium 4.1 mmol/L (3.5-5.1); Protein, Total 6.6 g/dL (5.8-8.1); Sodium 142 mmol/L (136-145)
== END 2021-03-20 14:40 | disposition home or self-care (01) ==
LOC: MADERS 12:16
DX: K59.00 Constipation, unspecified (principal); R06.00 Dyspnea, unspecified; I11.0 Hypertensive heart disease with heart failure; I50.9 Heart failure, unspecified; K21.9 Gastro-esophageal reflux disease without esophagitis; E78.5 Hyperlipidemia, unspecified; E11.40 Type 2 diabetes mellitus with diabetic neuropathy, unspecified; Z87.891 Personal history of nicotine dependence; Z79.82 Long term (current) use of aspirin; Z79.4 Long term (current) use of insulin; Z79.899 Other long term (current) drug therapy
CPT/HCPCS: 36415; 71045; 80053; 82550; 83605; 83880; 84484; 85025; 93005; 94760

== ENCOUNTER 2021-03-28 13:54 | Emergency (ER) | payer MEDICARE | END 2021-03-28 14:40 | disposition home or self-care (01) | LOC: MADERS 13:54 | DX: M54.2 Cervicalgia (principal); K59.00 Constipation, unspecified; I11.0 Hypertensive heart disease with heart failure; I50.9 Heart failure, unspecified; K21.9 Gastro-esophageal reflux disease without esophagitis; E78.5 Hyperlipidemia, unspecified; E11.40 Type 2 diabetes mellitus with diabetic neuropathy, unspecified; Z87.891 Personal history of nicotine dependence; Z79.899 Other long term (current) drug therapy; Z79.4 Long term (current) use of insulin; Z79.82 Long term (current) use of aspirin | CPT/HCPCS: 99283 ==

== ENCOUNTER 2021-03-30 12:58 | Outpatient (CLI) | payer MEDICARE | END 2021-03-30 12:59 | disposition home or self-care (01) | LOC: MADRAD 12:58 | PROVIDERS: ATTEND Family Medicine | DX: M95.3 Acquired deformity of neck (principal); M47.812 Spondylosis without myelopathy or radiculopathy, cervical region | CPT/HCPCS: 72040 ==

== ENCOUNTER 2021-04-01 17:02 | Emergency (ER) | payer MEDICARE ==
[2021-04-01] MEDS ORDERED: Ketorolac Tromethamine 30 MG/ML VIAL ONE (18:01)
[2021-04-01 18:11] LABS: Band 5 % (5-11); Eosinophils 5 % (0-10); Hemoglobin 13.3 g/dL (12.0-16.0); Hypochromia SLIGHT = 6-15 cells (100X) (0-5/hpf); Lymphocytes 23 % (21-51); MDiff Complete? YES; Mean Corpuscular HGB CONC 30.8 g/dL (32.0-36.0); Mean Corpuscular Hemoglobin 28.8 pg (27.0-31.0); Mean Corpuscular Volume 93.4 fL (78.0-98.0); Monocytes 8 % (0-10); Neutrophil 59 % (42-75); Platelet Count 276 thou/uL (130-400); Platelet Morphology Comment Appears Adequate; RBC Distribution Width 12.6 % (11.5-14.5); Red Blood Cell (RBC) Count 4.64 mill/uL (4.20-5.40); White Blood Cell (WBC) Count 9.8 thou/uL (4.8-10.8)
[2021-04-01 18:16] LABS: Anion Gap 16 mmol/L (10-20); BUN (Urea Nitrogen) 33 mg/dL (9.8-20.1); Calc. Creatinine Clearance 0 mL/min (70-130); Calcium 8.8 mg/dL (7.8-10.44); Carbon Dioxide 27 mmol/L (23-31); Chloride 104 mmol/L (98-107); Glucose 129 mg/dL (83-110); Sodium 143 mmol/L (136-145)
== END 2021-04-01 18:49 | disposition home or self-care (01) ==
LOC: MADERS 17:02
DX: M54.2 Cervicalgia (principal); I11.0 Hypertensive heart disease with heart failure; I50.9 Heart failure, unspecified; K21.9 Gastro-esophageal reflux disease without esophagitis; E78.5 Hyperlipidemia, unspecified; E11.40 Type 2 diabetes mellitus with diabetic neuropathy, unspecified; Z87.891 Personal history of nicotine dependence; Z79.899 Other long term (current) drug therapy; Z79.4 Long term (current) use of insulin; Z79.82 Long term (current) use of aspirin
CPT/HCPCS: 80048; 85025; 96374; J1885

== ENCOUNTER 2021-05-23 16:55 | Emergency (ER) | payer MEDICARE ==
[2021-05-23 17:34] LABS: #Basophils 0.1 thou/uL (0.0-0.2); #Eosinphils 0.1 thou/uL (0.0-0.7); #Lymphocytes 1.8 thou/uL (1.20-3.40); #Monocytes 0.6 thou/uL (0.11-0.59); #Neutrophils 6.1 thou/uL (1.40-6.50); %Basophils 0.7 % (0.0-1.0); %Eosinophils 1.4 % (0.0-10.0); %Lymphocytes 20.9 % (21.0-51.0); %Monocytes 7.3 % (0.0-10.0); %Neutrophils 69.7 % (42.0-75.0); Hemoglobin 12.3 g/dL (12.0-16.0); Mean Corpuscular HGB CONC 30.9 g/dL (32.0-36.0); Mean Corpuscular Hemoglobin 28.4 pg (27.0-31.0); Mean Corpuscular Volume 92.1 fL (78.0-98.0); Mean Platelet Volume 9.7 fL (7.4-10.4); Platelet Count 248 thou/uL (130-400); RBC Distribution Width 12.7 % (11.5-14.5); Red Blood Cell (RBC) Count 4.33 mill/uL (4.20-5.40); White Blood Cell (WBC) Count 8.8 thou/uL (4.8-10.8)
[2021-05-23 17:53] LABS: ALT (SGPT) 12 U/L (8-55); AST (SGOT) 14 U/L (5-34); Albumin 3.4 g/dL (3.4-4.8); Alkaline Phosphatase 63 U/L (40-110); Anion Gap 14 mmol/L (10-20); BUN (Urea Nitrogen) 28 mg/dL (9.8-20.1); Bilirubin, Total 0.3 mg/dL (0.2-1.2); Calc. Creatinine Clearance 0 mL/min (70-130); Calcium 8.8 mg/dL (7.8-10.44); Carbon Dioxide 26 mmol/L (23-31); Chloride 104 mmol/L (98-107); Globulin 2.6 g/dL (2.4-3.5); Glucose 143 mg/dL (83-110); Potassium 4.1 mmol/L (3.5-5.1); Sodium 140 mmol/L (136-145)
[2021-05-23] MEDS ORDERED: Diazepam 5 MG TAB ONE (18:45)
== END 2021-05-23 19:51 | disposition home or self-care (01) ==
LOC: MADERS 16:55
DX: F41.9 Anxiety disorder, unspecified (principal); R06.00 Dyspnea, unspecified; M54.9 Dorsalgia, unspecified; E11.40 Type 2 diabetes mellitus with diabetic neuropathy, unspecified; K21.9 Gastro-esophageal reflux disease without esophagitis; E78.5 Hyperlipidemia, unspecified; I11.0 Hypertensive heart disease with heart failure; I50.9 Heart failure, unspecified; Z87.891 Personal history of nicotine dependence
CPT/HCPCS: 71045; 80053; 83880; 84484; 85025; 93005

== ENCOUNTER 2021-11-15 14:13 | Outpatient (CLI) | payer MEDICARE ==
[2021-11-15 14:32] LABS: Bilirubin Negative (Negative); Blood, Urine Small (Negative); Glucose, Urine (Dipstick) 250 mg/dL (Negative); Ketone, Urine Negative (Negative); Leukocyte Small (Negative); Nitrite Negative (Negative); Protein, Urine (Dipstick) 30 mg/dL (Neg-Trace); Urobilinogen 0.2 mg/dL (Less than 2); pH, Urine 5.5 (5.0-9.0)
[2021-11-15 14:37] LABS: Clarity Cloudy (Clear)
[2021-11-15 14:38] LABS: Bacteria/HPF 1+ HPF (None Seen); Other Microscopic Description C&S SET UP; RBC/HPF 0-3 HPF (0-3); Squamous Epithelial 0-3 HPF (0-3); WBC/HPF Greater Than 50 HPF (0-3)
== END 2021-11-15 14:14 | disposition home or self-care (01) ==
LOC: MADLAB 14:13
PROVIDERS: ATTEND Family Medicine
DX: I13.10 Hypertensive heart and chronic kidney disease without heart failure, with stage 1 through stage 4 chronic kidney disease, or unspecified chronic kidney disease (principal); E11.22 Type 2 diabetes mellitus with diabetic chronic kidney disease; I50.30 Unspecified diastolic (congestive) heart failure; N18.4 Chronic kidney disease, stage 4 (severe); E11.40 Type 2 diabetes mellitus with diabetic neuropathy, unspecified
CPT/HCPCS: 81001; 87077; 87086; 87186

== ENCOUNTER 2022-06-21 10:44 | Outpatient (CLI) | payer MEDICARE ==
[2022-06-21 12:48] LABS: ALT (SGPT) 13 U/L (8-55); AST (SGOT) 14 U/L (5-34); Albumin 3.7 g/dL (3.4-4.8); Alkaline Phosphatase 68 U/L (40-110); Anion Gap 15 mmol/L (10-20); BUN (Urea Nitrogen) 41 mg/dL (9.8-20.1); Bilirubin, Total 0.3 mg/dL (0.2-1.2); Calc. Creatinine Clearance 0 mL/min (70-130); Calcium 8.8 mg/dL (7.8-10.44); Carbon Dioxide 24 mmol/L (23-31); Chloride 111 mmol/L (98-107); Cholesterol 149 mg/dl (< 200 Desired); Estimated GFR 29; Globulin 2.1 g/dL (2.4-3.5); Glucose 71 mg/dL (83-110); HDL Cholesterol 49 mg/dL (>60 Neg Risk); LDL Cholesterol, Calculated 87 mg/dL; Potassium 4.5 mmol/L (3.5-5.1); Protein, Total 5.8 g/dL (5.8-8.1); Sodium 145 mmol/L (136-145); Triglycerides 66 mg/dL (Less than 150)
[2022-06-21 16:12] LABS: Hemoglobin A1c 6.3 % (4.0-6.0)
== END 2022-06-21 10:45 | disposition home or self-care (01) ==
LOC: MADLAB 10:44
PROVIDERS: ATTEND Family Medicine
DX: E78.2 Mixed hyperlipidemia (principal); E11.40 Type 2 diabetes mellitus with diabetic neuropathy, unspecified
CPT/HCPCS: 36415; 80053; 80061; 83036

== ENCOUNTER 2023-08-02 15:26 | Emergency (ER) | payer OTHER, MEDICARE ==
[2023-08-02 16:39] LABS: #Basophils 0.1 thou/uL (0.0-0.2); #Eosinphils 0.2 thou/uL (0.0-0.7); #Lymphocytes 1.7 thou/uL (1.20-3.40); #Monocytes 0.7 thou/uL (0.11-0.59); #Neutrophils 5.3 thou/uL (1.40-6.50); %Basophils 1.5 % (0.0-1.0); %Eosinophils 2.4 % (0.0-10.0); %Lymphocytes 21.4 % (21.0-51.0); %Monocytes 8.3 % (0.0-10.0); %Neutrophils 66.4 % (42.0-75.0); Hematocrit 36.4 % (36.0-47.0); Hemoglobin 11.8 g/dL (12.0-16.0); Mean Corpuscular HGB CONC 32.3 g/dL (32.0-36.0); Mean Corpuscular Hemoglobin 29.8 pg (27.0-31.0); Mean Corpuscular Volume 92.2 fl (78.0-98.0); Mean Platelet Volume 10.4 fL (7.4-10.4); Platelet Count 199 10x3/uL (130-400); RBC Distribution Width 13.8 % (11.5-14.5); Red Blood Cell (RBC) Count 3.94 mill/uL (4.20-5.40); White Blood Cell (WBC) Count 7.9 10x3/uL (4.8-10.8)
[2023-08-02 16:53] LABS: ALT (SGPT) 10 U/L (8-55); AST (SGOT) 12 U/L (5-34); Albumin 3.6 g/dL (3.4-4.8); Alkaline Phosphatase 75 U/L (40-110); Anion Gap 13 mmol/L (10-20); BUN (Urea Nitrogen) 31 mg/dL (9.8-20.1); Bilirubin, Total 0.3 mg/dL (0.2-1.2); Calc. Creatinine Clearance 0 mL/min (70-130); Calcium 9.1 mg/dL (7.8-10.44); Carbon Dioxide 25 mmol/L (23-31); Chloride 108 mmol/L (98-107); Estimated GFR 28; Globulin 2.5 g/dL (2.4-3.5); Glucose 154 mg/dL (83-110); Potassium 4.3 mmol/L (3.5-5.1); Protein, Total 6.1 g/dL (5.8-8.1); Sodium 142 mmol/L (136-145)
[2023-08-02 16:56] LABS: Troponin I Less than 0.010 ng/mL (< 0.028)
[2023-08-02 17:29] LABS: Bilirubin Negative (Negative); Blood, Urine Trace (Negative); Clarity Cloudy (Clear); Glucose, Urine (Dipstick) 100 mg/dL (Negative); Ketone, Urine Negative (Negative); Leukocyte Moderate (Negative); Nitrite Negative (Negative); Protein, Urine (Dipstick) 30 mg/dL (Neg-Trace); Specific Gravity, Urine 1.015 (1.005-1.030); Urobilinogen 0.2 mg/dL (Less than 2)
[2023-08-02 17:32] LABS: CAUTI Indications for Culture Pelvic or flank pain
[2023-08-02 17:36] LABS: Bacteria/HPF 2+ HPF (None Seen); RBC/HPF 0-3 HPF (0-3); Squamous Epithelial 0-3 HPF (0-3); WBC/HPF Greater Than 50 HPF (0-3)
[2023-08-02 17:38] LABS: Amphetamine Not Detected (NotDetected); Barbiturates Screen Not Detected (NotDetected); Benzodiazepine Screen Not Detected (NotDetected); Cocaine Metabolite Screen Not Detected (NotDetected); Methadone Not Detected (NotDetected); Methamphetamine Not Detected (NotDetected); Opiate Screen Not Detected (NotDetected); Oxycodone Screen Not Detected (NotDetected); Phencyclidine (PCP) Not Detected (NotDetected); THC/Cannabinoid Screen Not Detected (NotDetected); Tricyclic Screen Not Detected (NotDetected)
== END 2023-08-02 18:19 | disposition home or self-care (01) ==
LOC: MADERS 15:26
DX: R44.1 Visual hallucinations (principal); I11.0 Hypertensive heart disease with heart failure; I50.9 Heart failure, unspecified; E11.9 Type 2 diabetes mellitus without complications; K21.9 Gastro-esophageal reflux disease without esophagitis; E78.5 Hyperlipidemia, unspecified; Z87.891 Personal history of nicotine dependence; Z79.4 Long term (current) use of insulin; Z79.82 Long term (current) use of aspirin; Z79.899 Other long term (current) drug therapy
CPT/HCPCS: 36415; 70450; 71045; 80053; 80306; 81001; 84443; 84484; 85025

== ENCOUNTER 2023-12-04 11:47 | Emergency (ER) | payer OTHER, MEDICARE ==
[2023-12-04 12:36] LABS: #Basophils 0.1 thou/uL (0.0-0.2); #Eosinphils 0.1 thou/uL (0.0-0.7); #Lymphocytes 1.3 thou/uL (1.20-3.40); #Monocytes 0.5 thou/uL (0.11-0.59); #Neutrophils 6.5 thou/uL (1.40-6.50); %Basophils 1.3 % (0.0-1.0); %Lymphocytes 15.5 % (21.0-51.0); %Monocytes 5.9 % (0.0-10.0); %Neutrophils 76.3 % (42.0-75.0); Hematocrit 40.3 % (36.0-47.0); Hemoglobin 12.6 g/dL (12.0-16.0); Mean Corpuscular HGB CONC 31.3 g/dL (32.0-36.0); Mean Corpuscular Hemoglobin 29.6 pg (27.0-31.0); Mean Corpuscular Volume 94.8 fl (78.0-98.0); Mean Platelet Volume 10.1 fL (7.4-10.4); Platelet Count 228 10x3/uL (130-400); RBC Distribution Width 13.1 % (11.5-14.5); Red Blood Cell (RBC) Count 4.26 mill/uL (4.20-5.40); White Blood Cell (WBC) Count 8.6 10x3/uL (4.8-10.8)
[2023-12-04 12:40] LABS: Anion Gap 13 mmol/L (10-20); BUN (Urea Nitrogen) 19 mg/dL (9.8-20.1); Calc. Creatinine Clearance 0 mL/min (70-130); Calcium 8.9 mg/dL (7.8-10.44); Carbon Dioxide 25 mmol/L (23-31); Chloride 106 mmol/L (98-107); Estimated GFR 34; Glucose 191 mg/dL (83-110); Potassium 4.3 mmol/L (3.5-5.1); Sodium 140 mmol/L (136-145)
[2023-12-04] MEDS ORDERED: Sodium Chloride 0.9% 500 ML ONE (13:32)
[2023-12-04 13:42] LABS: Bilirubin Negative (Negative); Blood, Urine Negative (Negative); Clarity Clear (Clear); Glucose, Urine (Dipstick) 250 mg/dL (Negative); Ketone, Urine Negative (Negative); Leukocyte Negative (Negative); Nitrite Negative (Negative); Protein, Urine (Dipstick) 30 mg/dL (Neg-Trace); Urobilinogen 0.2 mg/dL (Less than 2); pH, Urine 7.5 (5.0-9.0)
[2023-12-04 13:44] LABS: Bacteria/HPF Rare-Few HPF (None Seen); CAUTI Indications for Culture Fever or rigors; RBC/HPF 0-3 HPF (0-3); Squamous Epithelial 0-3 HPF (0-3)
[2023-12-04 13:45] LABS: Urine Culture Reflex No No
== END 2023-12-04 14:19 | disposition home or self-care (01) ==
LOC: MADERS 11:47
DX: S37.009A Unspecified injury of unspecified kidney, initial encounter (principal); F10.10 Alcohol abuse, uncomplicated; I11.0 Hypertensive heart disease with heart failure; I50.9 Heart failure, unspecified; E78.5 Hyperlipidemia, unspecified; E11.42 Type 2 diabetes mellitus with diabetic polyneuropathy; Z79.899 Other long term (current) drug therapy; Z79.82 Long term (current) use of aspirin
CPT/HCPCS: 36415; 70450; 80048; 81001; 85025; 87804; 93005; J7030

== ENCOUNTER 2024-12-08 15:51 | Emergency (ER) | payer OTHER, MEDICARE ==
[2024-12-08 17:07] LABS: Band 8 % (5-11); Hematocrit 37.5 % (36.0-47.0); Hemoglobin 11.3 g/dL (12.0-16.0); Hypochromia SLIGHT = 6-15 cells (100X) (0-5/hpf); Lymphocytes 5 % (21-51); MDiff Complete? YES; Mean Corpuscular HGB CONC 30.1 g/dL (32.0-36.0); Mean Corpuscular Hemoglobin 28.4 pg (27.0-31.0); Mean Corpuscular Volume 94.4 fl (78.0-98.0); Mean Platelet Volume 7.9 fL (7.4-10.4); Monocytes 3 % (0-10); Neutrophil 83 % (42-75); Platelet Adequacy Comment Appears Adequate; Platelet Count 291 10x3/uL (130-400); RBC Distribution Width 14.2 % (11.5-14.5); Red Blood Cell (RBC) Count 3.97 mill/uL (4.20-5.40); White Blood Cell (WBC) Count 15.5 10x3/uL (4.8-10.8)
[2024-12-08 17:09] LABS: ALT (SGPT) 16 U/L (8-55); AST (SGOT) 16 U/L (5-34); Alkaline Phosphatase 95 U/L (40-110); Anion Gap 13 mmol/L (10-20); BUN (Urea Nitrogen) 24 mg/dL (9.8-20.1); Bilirubin, Total 0.3 mg/dL (0.2-1.2); Calc. Creatinine Clearance 0 mL/min (70-130); Calcium 8.6 mg/dL (7.8-10.44); Carbon Dioxide 27 mmol/L (23-31); Chloride 108 mmol/L (98-107); Estimated GFR 36; Globulin 2.9 g/dL (2.4-3.5); Glucose 225 mg/dL (83-110); Potassium 4.6 mmol/L (3.5-5.1); Protein, Total 5.9 g/dL (5.8-8.1); Sodium 143 mmol/L (136-145)
[2024-12-08 17:11] LABS: Troponin I 0.037 ng/mL (< 0.028)
[2024-12-08] MEDS ORDERED: Furosemide 20 MG (2 mL) VIAL ONE (17:48)
[2024-12-08] MEDS ORDERED: Nitroglycerin 0.4 MG TAB 1 EACH ONE (18:08)
[2024-12-08 19:20] LABS: Troponin I 0.041 ng/mL (< 0.028)
[2024-12-08] MEDS ORDERED: Aspirin Chewable 81 MG TAB ONE (19:36)
== END 2024-12-08 21:08 | disposition short-term general hospital (02) ==
LOC: MADERS 15:51
DX: I11.0 Hypertensive heart disease with heart failure (principal); I50.9 Heart failure, unspecified; I24.9 Acute ischemic heart disease, unspecified; K21.9 Gastro-esophageal reflux disease without esophagitis; E78.5 Hyperlipidemia, unspecified; E11.42 Type 2 diabetes mellitus with diabetic polyneuropathy; Z79.4 Long term (current) use of insulin; Z79.82 Long term (current) use of aspirin; Z87.891 Personal history of nicotine dependence; Z79.899 Other long term (current) drug therapy
CPT/HCPCS: 71045; 80053; 83605; 83880; 84484 ×2; 85025; 93005; 94760; J1940; 96374

== ENCOUNTER 2024-12-23 19:22 | Inpatient (IN) | payer OTHER, MEDICARE ==
[2024-12-23 19:38] VITALS: BMI 23.7
[2024-12-23] MEDS ORDERED: Lorazepam 2 MG/ML VIAL SLOW IVP PRN (19:58)
[2024-12-23] MEDS ORDERED: Scopolamine 1 mg/72 hour Patch TOP PRN (20:00)
[2024-12-23] MEDS ORDERED: Bisacodyl 10 MG SUPP PR PRN (20:01)
[2024-12-24] MEDS: Acetaminophen 650 MG Suppository PR PRN (04:53)
[2024-12-24] MEDS: Ondansetron PF 4 MG/2 ML Vial IVP PRN (14:35)
[2024-12-24] MEDS: Sodium Chloride 0.65% Nasal 44 ML BOT EA NARE PRN (17:39)
[2024-12-24] MEDS: Morphine 2 MG/ML VIAL SLOW IVP PRN (19:18)
[2024-12-27 09:00] VITALS: BP 184/71; TEMP 98.7
== END 2024-12-27 10:13 | disposition hospice, home (50) | DRG 951 ==
LOC: MADMS 19:22
PROVIDERS: ADMIT Family Medicine; ATTEND Family Medicine
DX: Z51.5 Encounter for palliative care (principal); I50.33 Acute on chronic diastolic (congestive) heart failure; G93.41 Metabolic encephalopathy; J96.12 Chronic respiratory failure with hypercapnia; J96.11 Chronic respiratory failure with hypoxia; E11.22 Type 2 diabetes mellitus with diabetic chronic kidney disease; Z66 Do not resuscitate; N18.9 Chronic kidney disease, unspecified; Z96.653 Presence of artificial knee joint, bilateral; Z99.3 Dependence on wheelchair; Z88.5 Allergy status to narcotic agent; Z88.1 Allergy status to other antibiotic agents; Z79.899 Other long term (current) drug therapy; Z98.891 History of uterine scar from previous surgery; Z90.49 Acquired absence of other specified parts of digestive tract; M41.9 Scoliosis, unspecified
CPT/HCPCS: 36416; J2272; J2405